=== PATIENT | male | born 1955 | race Caucasian/White ===

== ENCOUNTER 2022-04-28 01:22 | Day surgery (SDC) | payer MEDICARE, SELFPAY ==
[2022-04-15 09:47] VITALS: BMI 46.1
--- NOTE | 2022-04-27 10:57 | PM.HPGS ---
History of Present Illness History of Present Illness Consent: Risks, benefits, and alternatives have been discussed and questions answered. Patient agrees to proceed with procedure. Chief complaint: GERD, neoplasm screening Narrative: Bebeto Rasheed is a 66 year old male who is having issues with acid reflux symptoms. For past 2 years he has had a sensation of fullness in the throat area in feels that it is difficult to swallow. He also feels full in the epigastric area after meal. He never gets true heartburn. He denies dysphagia with any sensation of food getting stuck. He is not losing weight. He is also due for colon cancer screening. Review of Systems Review of Systems: All systems reviewed & are unremarkable except as noted in HPI and below PMFSH Past Medical History Medical History Gout Hyperlipidemia Morbid obesity with BMI of 45.0-49.9, adult Social History Social History Smoking status: Never smoker Alcohol intake: never Substance use: never Substance use type: does not use Living arrangements: with family Spiritual care concerns: No Meds Home Medications and Allergies Home Medications Medication Instructions Recorded Confirmed Type albuterol sulfate 90 mcg/actuation 90 mcg inhalation USEASDIRECTD 04/15/22 04/15/22 History aerosol inhaler allopurinol 300 mg tablet 300 mg PO DAILY 04/15/22 04/15/22 History fluticasone propionate 50 50 mcg intranasal USEASDIRECTD 04/15/22 04/15/22 History mcg/actuation nasal spray,suspension montelukast 10 mg tablet 10 mg PO DAILY 04/15/22 04/15/22 History sertraline 50 mg tablet 50 mg PO DAILY 04/15/22 04/15/22 History simvastatin 20 mg tablet 20 mg PO DAILY 04/15/22 04/15/22 History Allergies Allergy/AdvReac Type Severity Reaction Status Date / Time No Known Allergies Allergy Unverified 04/28/22 07:47 Exam Const: General: alert Orientation/consciousness: patient oriented x3 Resp: Auscultation: clear to auscultation bilaterally Cardio: Rhythm: regular rhythm GI: GI Palp: Yes Soft to palpation and No Tenderness to palpation present (GI) Neuro: General: patient oriented x3 Assessment and Plan Assessment and plan (1) GERD (gastroesophageal reflux disease): Code(s): K21.9 - Gastro-esophageal reflux disease without esophagitis Status: Acute Assessment and Plan: EGD with possible biopsy or dilatation or cautery. (2) Colon cancer screening: Code(s): Z12.11 - Encounter for screening for malignant neoplasm of colon Status: Acute Assessment and Plan: Colonoscopy with possible biopsy or polypectomy or cautery or injection of substances.
[2022-04-28 07:49] VITALS: BP 167/89; PULSE 64; RESP 20; TEMP 36.4; O2SAT 98
--- NOTE | 2022-04-28 07:50 | P.PNAN_ITS ---
Anes - Initial Pre Proc Eval Procedure: Operation Date: 04/28/22 09:00 Proposed Procedures p Esophagogastroduodenoscopy & Screening Colonoscopy - Salvador Damian MD Date/Time: 04/28/22 07:50 Surgeon: Salvador Damian MD Pre Op Diagnosis: GERD, neoplasm screening Patient Data Age: 66 Gender: M Height: 1.83 m Weight: 154.3 kg Allergies Allergy/AdvReac Type Severity Reaction Status Date / Time No Known Allergies Allergy Unverified 04/28/22 07:47 Home Medications Medication Instructions Recorded Confirmed Type albuterol sulfate 90 mcg/actuation 90 mcg inhalation USEASDIRECTD 04/15/22 04/15/22 History aerosol inhaler allopurinol 300 mg tablet 300 mg PO DAILY 04/15/22 04/15/22 History fluticasone propionate 50 50 mcg intranasal USEASDIRECTD 04/15/22 04/15/22 History mcg/actuation nasal spray,suspension montelukast 10 mg tablet 10 mg PO DAILY 04/15/22 04/15/22 History sertraline 50 mg tablet 50 mg PO DAILY 04/15/22 04/15/22 History simvastatin 20 mg tablet 20 mg PO DAILY 04/15/22 04/15/22 History Patient hx anesthesia problems: none Family hx anesthesia problems: none Results Review: All pre-operative results and documents have been reviewed as part of the pre- operative evaluation. [facility] Past Medical History Medical History (Updated 04/28/22 @ 07:51 by Tanmay Ruth MD) Gout Hyperlipidemia Morbid obesity with BMI of 45.0-49.9, adult Social History Social History Smoking status: Never smoker Alcohol intake: never Substance use: never Substance use type: does not use Living arrangements: with family Spiritual care concerns: No Anes - Eval Final PreProcedure Day of Procedure 04/28/22 07:50 Patient weight: morbidly obese Heart: regular rate and rhythm Lungs: clear to auscultation and normal air movement Airway: Mallampati scale class II Neurological: alert and oriented Last oral intake: >/= 8 hours ASA classification: III Emergent: no Anesthetic plan: proceed Anesthesia type and monitoring: general GIVS Results Review: All pre-operative results and documents have been reviewed as part of the pre- operative evaluation. Informed Consent: The patient's anesthetic plan and its attendant risks and benefits were discussed with the patient/family/POA. Questions were solicited and answers provided to the satisfaction of the patient/family/POA.
[2022-04-28] MEDS: LACTATED RINGERS 1,000 ML 150 ML IV CONT (07:59)
--- NOTE | 2022-04-28 09:14 | SUR.OPER ---
EGD ENDED 907, COLONOSCOPY STARTED 913
[2022-04-28] MEDS: SIMETHICONE ORAL SUSPENSION 20 MG/0.3 ML 30 ML BOTTLE 0.6 ML IRRIGATION (09:20)
[2022-04-28 09:27] VITALS: BP 124/70; PULSE 60; RESP 22; O2SAT 100
[2022-04-28 09:37] VITALS: BP 143/79; PULSE 63; RESP 21; O2SAT 100
[2022-04-28 09:47] VITALS: BP 131/80; PULSE 62; RESP 19; O2SAT 100
== END 2022-04-28 10:00 | disposition home or self-care (01) ==
PROVIDERS: PCP Internal Medicine; Visit Provider Internal Medicine Gastroenterology
PROC: 0DJ08ZZ Inspection of Upper Intestinal Tract, Via Natural or Artificial Opening Endoscopic (ICD-10-PCS; CPT 43235; principal; 2022-04-28 09:00)
DX: Z12.11 Encounter for screening for malignant neoplasm of colon (principal); K57.30 Diverticulosis of large intestine without perforation or abscess without bleeding; Z79.51 Long term (current) use of inhaled steroids; M10.9 Gout, unspecified; E66.01 Morbid (severe) obesity due to excess calories; Z68.42 Body mass index [BMI] 45.0-49.9, adult
CPT/HCPCS: 43239; G0121; 87081; J2704; J7120

== ENCOUNTER 2022-07-03 12:27 | Outpatient (CLI) | payer MEDICARE, SELFPAY ==
--- NOTE | 2022-07-03 | ECHO_ITS ---
Patient Info Name: Bebeto Rasheed Age: 67 years : 1955 Gender: Male Ht: 72 in Wt: 330 lbs BSA: 2.83 m2 HR: 78 bpm BP: 186 / 85 mmHg Technical Quality: Fair Exam Date: 07/03/2022 1:25 PM Exam Location: [facility] Patient Status: Outpatient Admit Date: 07/03/2022 Staff Ordering Physician: RosalinoAman MD Asphalt Distributor Operator: Kandis Monroe RDCS Attending Provider: HernanAman MD Exam Type: CA echo doppler color flow Study Info Indications - dyspnea Complete two-dimensional, color flow and Doppler transthoracic echocardiogram is performed. Summary 1. Complete two-dimensional, color flow and Doppler transthoracic echocardiogram is performed. 2. Left ventricular chamber dimension is moderately enlarged. 3. Left ventricular systolic function is normal, estimated at 65-70%. 4. The left ventricular diastolic function is grade I diastolic dysfunction. 5. E/e' 9 is minimally elevated. 6. Left atrial chamber dimension is mildly enlarged. 7. No pulmonary hypertension, estimated pulmonary arterial systolic pressure is 24 mmHg. Left Ventricle E/e' 9 is minimally elevated. Left ventricular chamber dimension is moderately enlarged. Left ventricular systolic function is normal, estimated at 65-70%. The left ventricular diastolic function is grade I diastolic dysfunction. Right Ventricle Right ventricular chamber dimension is normal. Right ventricular systolic function is normal. Left Atria Left atrial chamber dimension is mildly enlarged. Right Atria Right atrial chamber dimension is normal. Aortic Valve The aortic valve is not well visualized. Cannot determine number of aortic valve leaflets. There is no aortic valve stenosis. There is no aortic valve regurgitation. Pulmonic Valve There is no pulmonic regurgitation. Mitral Valve There is no mitral valve stenosis. There is no mitral valve regurgitation. Tricuspid Valve There is no tricuspid valve regurgitation. No pulmonary hypertension, estimated pulmonary arterial systolic pressure is 24 mmHg. Pericardium/Pleural There is no pericardial effusion. Inferior Vena Cava Normal inferior vena cava with >50% collapse upon inspiration consistent with normal right atrial pressure, 5 mmHg. Aorta The aortic root size at the sinus of Valsalva is normal. Left Ventricular Outflow Tract Name Value Normal LVOT 2D LVOT Diameter 2.1 cm LVOT Doppler LVOT Peak Gradient 4 mmHg LVOT Mean Gradient 3 mmHg LVOT VTI 21 cm LVOT VTI/AV VTI Ratio 0.8 LVOT Stroke Volume 77 ml LVOT CO 17.2 l/min LVOT CI 6.1 l/min/m2 Pulmonic Valve Name Value Normal PV Doppler PV Peak Gradi
== END 2022-07-03 12:28 | disposition home or self-care (01) ==
LOC: ANHCARD 12:28
PROVIDERS: PCP Internal Medicine; Visit Provider Internal Medicine
DX: R06.00 Dyspnea, unspecified (principal)
CPT/HCPCS: 93306

== ENCOUNTER 2022-07-21 09:42 | Outpatient (CLI) | payer MEDICARE, SELFPAY ==
--- NOTE | ~2022-07-21 | XR_ITS ---
MODIFIED ESOPHAGRAM HISTORY: Dysphagia. TECHNIQUE: Modified barium esophagram was performed on 07/21/2022. I administered fluoroscopy and per formed the exam with speech pathologist. Patient was seated for lateral fluoroscopic imaging for ing estion of thin liquids, pudding, solids and quantified amounts, followed by thin liquids in uncontrol led amounts. This was recorded on tape. No fluoroscopic image was recorded. The DAP for this procedur e was 2.126 Gycm2. The amount of fluoroscopy time used during this procedure was 1.9 minutes. FINDINGS: Oral stage: Adequate function. Pharyngeal stage: Laryngeal penetration without aspiration with thin uncontrolled thin liquids. Cervical/esophageal stage: Adequate function. IMPRESSION: Laryngeal penetration without aspiration with uncontrolled thin liquids. Please correlat e with speech pathologist findings and specific feeding recommendations. Reviewed, dictated and finalized at location A. SER IMPRESSION: Laryngeal penetration without aspiration with uncontrolled thin liq uids. Please correlate with speech pathologist findings and specific feeding r ecommendations.
--- NOTE | 2022-07-21 13:06 | REHSTMBS ---
Assessment and note entered by Megan Jang, PRODUCTION SUPPORT ENGINEER Modified Barium Swallow Evaluation Diagnosis Dysphagia Subjective Information Patient reports that since having COVID in 2020, he has been having sinus problems and he is concerned that sinus drainage may be contributing to a feeling that there is always something in his throat. He then reported a serious choking episode six months ago on solid food that scared him. He states since that time, he has begun to have more episodes of choking on solid foods and more of a feeling that his throat is tight . Feeding Type Recommended Oral Food Consistency Regular, Level 7 Liquid Consistency Thin (0) Treatment Recommendations Bolus Control Exercise,Effortful Swallow,Laryngeal Elevation Exerc,Jeri Maneuver,Tongue Base Exercise ST Clinical Summary MODIFIED BARIUM SWALLOW STUDY This patient reports a history of of choking episodes and difficulty swallowing for the past six months. He reports a constant feeling of tightness in his throat. The patient was presented with graduated amounts of thin liquid contrast medium from spoon to directly per cup and also per straw. Patient also was presented with graduated amounts of pudding mixed with semi-solid contrast medium, fruit and cracker both coated with the pudding mixture. Patient elicited swallows that were generally within normal limits except for minimal penetration per thin liquid from straw, and then trace penetration on thin liquid directly per cup. Patient reported throughout the evaluation that he felt something in his throat the whole time although the pharynx was generally clear. There was only trace vallecular residue noted after each swallow. Results will suggest patient's swallowing skills are grossly within normal limits however inconsistent trace to minimal penetration was noted given uncontrolled thin liquid. Very mnimal vallecular residue was noted as well. Patient was instructed in the use of safe
== END 2022-07-21 09:43 | disposition home or self-care (01) ==
PROVIDERS: PCP Internal Medicine; Visit Provider Internal Medicine
DX: R13.10 Dysphagia, unspecified (principal)
CPT/HCPCS: 92611

== ENCOUNTER 2022-08-04 08:13 | Outpatient (CLI) | payer MEDICARE, SELFPAY ==
--- NOTE | 2022-08-04 | EST_ITS ---
Patient Info Name: Bebeto Rasheed Age: 67 years : 1955 Gender: Male Ht: 72 in Wt: 330 lbs BSA: 2.83 m2 HR: 57 bpm BP: 146 / 77 mmHg Heart Rhythm: Sinus Rhythm Exam Date: 08/04/2022 10:03 AM Exam Location: [facility] [place] Stress Patient Status: Outpatient Admit Date: 08/04/2022 Staff Ordering Physician: Rosalino, Aman KRISHNA Attending Provider: Rosalino, Aman KRISHNA Exercise Technologist: Becky Garcia CT Exercise Physician: Nohemy Sandoval MD Exam Type: CA stress vince w NM Study Info Indications R06.09 - Other forms of dyspnea A regadenoson stress test was performed. Summary 1. No abnormal ST/T wave changes diagnostic of ischemia with Lexiscan. 2. Please correlate with nuclear medicine images, reported separately. Protocol: Lexiscan Stress ECG Details Stage: REST Duration (min): 1 min : 5 sec HR (bpm): 60 SBP (mmHg): 146 DBP (mmHg): 77 Stage: REST Duration (min): 13 min : 4 sec HR (bpm): 60 SBP (mmHg): 146 DBP (mmHg): 77 Stage: STAGE 1 Duration (min): 0 min : 59 sec HR (bpm): 79 SBP (mmHg): 155 DBP (mmHg): 51 Stage: RECOVERY Duration (min): 1 min : 0 sec HR (bpm): 76 SBP (mmHg): 155 DBP (mmHg): 51 Stage: RECOVERY Duration (min): 2 min : 0 sec HR (bpm): 75 SBP (mmHg): 155 DBP (mmHg): 51 Stage: RECOVERY Duration (min): 2 min : 21 sec HR (bpm): 72 SBP (mmHg): 122 DBP (mmHg): 63 Rest HR: 60 bpm Peak HR: 83 bpm Rest Sys BP: 146 mmHg Peak Sys BP: 155 mmHg Max Pred HR: 152 bpm % Max Pred HR: 55 % Target HR: 129 bpm Max RPP: 12,865 bpm*mmHg Total Time: 1 min : 0 sec Rest Mayberry BP: 77 mmHg Peak Mayberry BP: 51 mmHg Total Dose: 0.4 mg Resting ECG Sinus rhythm. Stress ECG Sinus rhythm. No abnormal ST/T wave changes diagnostic of ischemia with Lexiscan. Arrhythmias None. Report Signatures
--- NOTE | ~2022-08-04 | NM_ITS ---
EXAMINATION: NM vince stress w perfusion DATE: 08/04/2022 11:16 INDICATION: Dyspnea TECHNIQUE: Rest images were obtained following intravenous administration of 11.2 mCi Tc99m tetrofosm in (Myoview). The patient was infused intravenously with Lexiscan (Regadenoson). Then, 34.3 mCi Tc99m tetrofosmin (Myoview) was administered intravenously, and stress images were obtained in both supine and prone positions. Data was reconstructed into short axis and horizontal and vertical long axis SP ECT images. Gated SPECT images were also obtained. COMPARISON: None. FINDINGS: There is no definite reversible or fixed perfusion abnormality to suggest ischemia or infar ction. There is normal left ventricular chamber size, wall motion and ejection fraction. Left ventr icular ejection fraction measures >70%. IMPRESSION: 1. Normal myocardial perfusion at rest and during stress. 2. Left ventricular ejection fraction measuring >70%. Reviewed, dictated and finalized at location A. CIATE STORE MANAGER
--- NOTE | 2022-08-04 14:05 | P.PCNPFT_ITS ---
PFT Procedure Performed PFT Procedure Performed Spirometry with Pre/Post Bronchodilator Plethysmography (Lung Vol) Diffusing Cap (DLCO) Flow Vol Loop Spirometry w/o Bronchodil PFT Interpretation Lung volumes were measured with the body plethysmography method. Lung volumes are unremarkable. Spirometry showed diminished expiratory flow rates and a normal FEV1 to FVC ratio of 85 %. No post bronchodilator study was carried out. Lung diffusion capacity is within the normal range at 78% predicted. The flow- volume loop is unremarkable. The mildly diminished expiratory flow rates in the face of normal FEV1 to FVC ratio and normal total lung capacity is indicative of a nonspecific pattern. Impression: Nonspecific pattern. Lung diffusion capacity within the normal range.
== END 2022-08-04 08:14 | disposition home or self-care (01) ==
LOC: ANHPFT 08:15
PROVIDERS: PCP Internal Medicine; Visit Provider Internal Medicine
DX: R06.00 Dyspnea, unspecified (principal)
CPT/HCPCS: 78452; 93017; 94375; 94726; 94729; A9502; J2785

== ENCOUNTER 2022-09-03 10:51 | Emergency (ER) | payer MEDICARE, SELFPAY ==
[2022-09-03 11:03] VITALS: BP 142/79; PULSE 63; RESP 20; TEMP 36.4; O2SAT 100
--- NOTE | 2022-09-03 11:13 | ED.DIZZY ---
HPI - Dizziness General Chief Complaint: Dizziness Stated Complaint: dizziness Time Seen by Provider: 09/03/22 11:16 Source: patient, RN notes reviewed and old records reviewed Mode of arrival: ambulatory Limitations: no limitations History of Present Illness HPI Narrative: 67 year old male presents to [facility] with 3 day history intermittent dizziness. Patient reports that he has had sinusitis and left ear drainage for months and was treated and finally symptoms have improved/resolved. He states that in July he also had episodes of feeling short of breath and his doctor put him through a stress test and pulmonary function test and everything checked out ok.Patient denies any chest pain, shortness of breath, cough or any headaches. Face is symmetrical denies any tingling or numbness in face, tongue is midline. MD elicited complaint: dizziness Related Data Home Medications Medication Instructions Recorded Confirmed albuterol sulfate 90 mcg/actuation 90 mcg inhalation USEASDIRECTD 04/15/22 09/03/22 aerosol inhaler allopurinol 300 mg tablet 300 mg PO DAILY 04/15/22 09/03/22 fluticasone propionate 50 50 mcg intranasal USEASDIRECTD 04/15/22 09/03/22 mcg/actuation nasal spray,suspension montelukast 10 mg tablet 10 mg PO DAILY 04/15/22 09/03/22 sertraline 50 mg tablet 50 mg PO DAILY 04/15/22 09/03/22 simvastatin 20 mg tablet 20 mg PO DAILY 04/15/22 09/03/22 Allergies Allergy/AdvReac Type Severity Reaction Status Date / Time No Known Allergies Allergy Verified 09/03/22 10:57 Review of Systems Review of Systems: CONSTITUTIONAL: Denies fever, chills, or sweats. EYES: Denies visual changes, redness, or discharge. ENT: Denies rhinorrhea, congestion, sore throat, or otalgia. CARDIOVASCULAR: Denies chest pain, palpitations, or edema. RESPIRATORY: Denies cough or dyspnea. GASTROINTESTINAL: Denies abdominal pain, nausea, vomiting, or diarrhea. GENITOURINARY: Denies dysuria or hematuria. SKIN: Denies rash or itching. MUSCULOSKELETAL: Denies back pain, joint pain, or myalgia. NEUROLOGIC: Denies headache, numbness, or weakness.reports intermittent dizziness PSYCHIATRIC: Denies anxiety or depression. All systems reviewed & are unremarkable except as noted in HPI and below PMFSH Past Medical History Medical History Gout Hyperlipidemia Morbid obesity with BMI of 45.0-49.9, adult Social History Social History Smoking status: Never smoker Alcohol intake: never Substance use: never Substance use type: does not use Spiritual care concerns: No Comments At time of signature, agree with nursing past medical, surgical, social and family history. There is no relevant family history pertinent to the presenting complaint Exam Narrative: GENERAL: Well-appearing, well-nourished, and in no acute distress. HEAD: Normocephalic, atraumatic. EYES: PERRLA and EOMI. ENT: Nares clear, no rhinorrhea or epistaxis. Mucous membranes moist.Right TM normal with good light reflex, no drainage from ear canals.Left TM dull, no throat redness or swelling tonsils absent. NECK: Supple.no lymphadenopathy CHEST: Clear to auscultation. No respiratory distress. Sao2 100% on room air HEART: Regular rate and rhythm. No murmur heard. Normal peripheral pulses. ABDOMEN: Soft, nontender, nondistended, normal active bowel sounds. EXTREMITIES: Normal range of motion. No edema. SKIN: Warm, dry, no rash. NEURO: No focal deficits. Alert and oriented x3.cranial nerves intact with no deficit Course Course Emergency Course: Patient is aware of diagnosis, understands and agrees to treatment plan.? Anticipatory guidance given.? Patient agrees to follow-up as directed and is aware of reasons to seek care at the emergency department. Portions of this record may have been created with voice recognition software Level of Care: [facility] Visit Vital Si
== END 2022-09-03 11:43 | disposition home or self-care (01) ==
PROVIDERS: Emergency Provider Registered Nurse; PCP Internal Medicine
DX: R42 Dizziness and giddiness (principal); M10.9 Gout, unspecified; E78.5 Hyperlipidemia, unspecified; E66.01 Morbid (severe) obesity due to excess calories; Z68.41 Body mass index [BMI] 40.0-44.9, adult
CPT/HCPCS: 99213; G0463

== ENCOUNTER 2022-09-13 11:00 | Outpatient (RCR) | payer MEDICARE, SELFPAY ==
--- NOTE | 2022-08-16 13:47 | STOPEVAL1 ---
Assessment and note entered by Megan Jang, FISHING CAPTAIN Evaluation Information Assessment Status Evaluation Diagnosis Dysphagia Onset Approximately 1 1/2 years ago Subjective Information The patient reports that it feels like there is a restriction where the Shawn's apple is, I guess. Last year and a half. Reports that he had COVID-19, and felt maybe lungs were full of dust, maybe from coughing so hard, it seemed like I strained something in there. Patient reports that during meals, he has had to slow down and has been incorporating head flexion. He states at the end of the meal, he still feels that he has a full throat and coughs about two or three times. He states he does not feel that he feels that something is there that he has to cough, such as sinus drainage or food/liquid that has remained after swallowing. He states this may occur for about thirty minutes but does not have this sensation after meals. Reported Pain Level Pain Score 0: Self Report Assessment ST Clinical Summary DYSPHAGIA EVALUATION This patient was seen for a Dysphagia Evaluation/ Treatment following a Modified Barium Swallow study on Tuesday, July 21 which revealed minimal penetration on thin liquid per straw and only trace penetration on thin liquid per cup. Patient was instructed in the use of head flexion; he voiced good understanding. Continued Speech Therapy for swallowing exercises and possible use of VitalStim was recommended. Today the patient reports improved swallowing skills overall however he reports a continued feeling of fullness in the throat along with coughing after eating. He was instructed in the use of swallowing strengthening exercises including laryngeal elevation exercises to improve epiglottal inversion to prevent penetration, laryngeal adduction exercises to improve the strength of the vocal cords for airway protection, and base of tongue retraction exercises in order to improve the movement of material through the pharynx to prevent pharyngeal residue. Patient voiced good understanding of exercises. VitalStim will be introduced
--- NOTE | 2022-08-25 11:30 | PCSTNOTE ---
Patient did not show up for scheduled appointment this date.
--- NOTE | 2022-08-31 09:44 | PCSTNOTE ---
Therapist contacted patient since he did not come to last week's scheduled appointments. Patient stated he could not come today but will return to structured therapy session on this at 11:00.
--- NOTE | 2022-09-13 12:26 | STOPDC ---
Assessment and note entered by MANUEL Feng Evaluation Information Assessment Status Discharge Reported Pain Level Pain Score 0: Self Report Pain Score 0: Self Report Assessment ST Clinical Summary PROGRESS NOTE AND DISCHARGE SUMMARY This patient was seen for a re-assessment and discharge visit this date. The patient was seen for a Modified Barium Swallow study 07/21/22 due to complaints of coughing/choking while eating and drinking, and also complaint of a feeling that there is always something in his throat (i.e. maybe sinus drainage?) Swallowing therapy with VitalStim was suggested at that time. Patient returned for outpatient Speech Therapy in July and he has received four treatments of VitalStim along with instruction for swallowing strengthening exercises and safe swallowing guidelines. Patient reports he completes several exercises daily. At the end of today's session, following the fourth VitalStim treatment, patient determined that he feels the swallowing exercises have been helpful but he does not feel that the VitalStim facilitated significant improvement. Patient admitted to the coughing that triggered the Modified Barium Swallow (MBS) but is somewhat in denial that the penetration noted on the MBS study was triggering the coughing but that his sinus and allergy symptoms triggered the coughing. Patient was seen for five sessions, with four treatments of VitalStim. He now reports NO coughing while eating and drinking however he indicated that he feels that the use of Flonase and other sinus medications had improved the feeling that he has phlegm in his throat and that is what reduced his coughing. He did state on more than one occasion, that he appreciated the swallowing strengthening exercises because he has been doing them somewhat consistently and he feels they have assisted with improved swallowing but expressed he did not feel the VitalStim was significantly helpful. Patient is being discharged with goals achieved; he reported he will follow-up with his physician concerning the feeling of sinus drainage in the throat at all times.
== END 2022-09-14 13:46 | disposition home or self-care (01) ==
LOC: ANHST 11:00
PROVIDERS: PCP Internal Medicine; Visit Provider Internal Medicine
DX: R13.10 Dysphagia, unspecified (principal)
CPT/HCPCS: 92526; 92610; 99199

== ENCOUNTER 2024-03-26 14:09 | Outpatient (CLI) | payer MEDICARE, SELFPAY ==
--- NOTE | ~2024-03-26 | XR_ITS ---
XR humerus LT Ordering provider: Aman Jerry, History: . Pain in Lt arm . Comparison: None. FINDINGS: BONES: No acute fracture or dislocation. JOINT SPACES: Normal. SOFT TISSUES: Normal. IMPRESSION: No acute osseous abnormality left humerus. Reviewed, dictated and finalized at location A.
== END 2024-03-26 14:10 ==
PROVIDERS: PCP Internal Medicine; Visit Provider Internal Medicine
DX: M79.602 Pain in left arm (principal)
CPT/HCPCS: 73060

== ENCOUNTER 2024-03-26 14:33 | Outpatient (CLI) | payer MEDICARE, SELFPAY ==
--- NOTE | ~2024-03-26 | US_ITS ---
EXAMINATION: US soft tissue UE LT DATE: 03/26/2024 14:46 INDICATION: Left arm pain with palpable abnormality at the site of a injection 4 months prior TECHNIQUE: Multiple grayscale and Doppler ultrasound images of the region of concern at the left uppe r arm were obtained. COMPARISON: None FINDINGS/IMPRESSION: Normal appearance to the subcutaneous soft tissues at the region of concern. No abnormal masses or fl uid collections identified. Reviewed, dictated and finalized at location A.
== END 2024-03-26 14:34 ==
LOC: MICIMG 14:35
PROVIDERS: PCP Internal Medicine; Visit Provider Internal Medicine
DX: M79.602 Pain in left arm (principal)
CPT/HCPCS: 76882

== ENCOUNTER 2024-08-05 07:39 | Inpatient (IN) | payer MEDICARE, SELFPAY ==
[2024-08-05] VITALS (10 sets, daily range): BP systolic 106–187; BP diastolic 72–100; PULSE 62–73; RESP 18–20; TEMP 36.1–36.3; O2SAT 93–97; BMI 45.9
--- NOTE | ~2024-08-05 | CT_ITS ---
EXAMINATION: CT cervical spine wo con DATE: 08/05/2024 10:55 INDICATION: Fall. TECHNIQUE: Computed tomography (CT) of the cervical spine was performed without intravenous contrast. Automated exposure control and iterative reconstruction technique were employed. The dose-length pro duct was 649.99 mGy-cm. COMPARISON: None FINDINGS: There is mild kyphosis of cervical spine. There is 5 degrees dextrocurvature of cervical sp ine. Vertebral body heights are normal. There is mildly decreased disc height at C4-C5 and moderately decreased disc height at C5-C6. The following disc levels are specifically discussed: C2-C3: There is no uncovertebral joint osteoarthritis. There is mild right and severe left facet join t osteoarthritis. There is mild left neural foraminal stenosis. There is no central canal stenosis. C3-C4: There is mild bilateral uncovertebral joint osteoarthritis. There is moderate left facet joint osteoarthritis. There is no neural foraminal stenosis. There is no central canal stenosis. C4-C5: There is mild bilateral uncovertebral joint osteoarthritis. There is mild right and moderate l eft facet joint osteoarthritis. There is mild bilateral neural foraminal stenosis. There is mild cent ral canal stenosis. C5-C6: There is severe bilateral uncovertebral joint osteoarthritis. There is mild bilateral facet rakel int osteoarthritis. There is mild bilateral neural foraminal stenosis. There is mild central canal st enosis. C6-C7: There is mild bilateral uncovertebral joint osteoarthritis. There is moderate and mild left fa cet joint osteoarthritis. There is no neural foraminal stenosis. There is no central canal stenosis. C7-T1: There is no uncovertebral joint osteoarthritis. There is severe right and mild left facet join t osteoarthritis. There is mild right neural foraminal stenosis. There is no central canal stenosis. IMPRESSION: 1. No fracture. 2. Moderate cervical spondylosis. Reviewed, dictated and finalized at location A. TH EVALUATOR
--- NOTE | ~2024-08-05 | CT_ITS ---
EXAMINATION: CT brain wo con DATE: 08/05/2024 10:55 INDICATION: Fall. TECHNIQUE: Computed tomography (CT) of the head was performed without intravenous contrast. The mA wa s adjusted according to patient size. Iterative reconstruction technique was employed. The dose-lengt h product was 681.00 mGy-cm. COMPARISON: None FINDINGS: There is no intracranial hemorrhage, acute infarction, or abnormal intracranial mass lesion . There are scattered areas of low attenuation in the cerebral white matter, which is within normal l imits for the patient's age. The ventricles are normal in size. The orbits are normal. There is mild mucosal thickening in the paranasal sinuses. The mastoid air cells are normal. There is left cheek so ft tissue swelling. IMPRESSION: 1. Normal aging brain. Reviewed, dictated and finalized at location A. E CREW SUPERVISOR IMPRESSION: 1. Normal aging brain.
--- NOTE | ~2024-08-05 | CT_ITS ---
EXAMINATION: CT facial bones w con DATE: 08/05/2024 10:55 INDICATION: Left periorbital cellulitis. TECHNIQUE: Computed tomography (CT) of the facial bones and maxillofacial region was performed with 7 5 mL Omnipaque 350 intravenous contrast. Automated exposure control and iterative reconstruction tech [place] were employed. The dose-length product was 354.17 mGy-cm. COMPARISON: CT 08/18/2014 FINDINGS: The orbits are normal. There is left periorbital soft tissue swelling. There are no patholo gically enlarged lymph nodes. There is mild mucosal thickening in the paranasal sinuses. The mastoid air cells are normal. There is moderate cervical spondylosis. IMPRESSION: 1. Left periorbital soft tissue swelling, consistent with synovitis. No orbital involvement. Reviewed, dictated and finalized at location A. ITALITY COORDINATOR
--- NOTE | ~2024-08-05 | XR_ITS ---
EXAMINATION: XR ribs LT 2V w CXR 2V DATE: 08/05/2024 09:39 INDICATION: Fall. TECHNIQUE: Frontal and lateral views of the chest and 2 views on 3 radiographs of the left ribs were obtained. COMPARISON: Chest 2 views 06/13/2014 FINDINGS: CHEST TWO VIEWS: There is mild elevation of right hemidiaphragm. No pneumonia, pleural effusion, or p neumothorax. The heart size is normal. Calcified left hilar lymph nodes are consistent with old granu lomatous disease. LEFT RIBS: There is no rib fracture. IMPRESSION: 1. No rib fracture. Reviewed, dictated and finalized at location A. EMAN IMPRESSION: 1. No rib fracture.
--- NOTE | 2024-08-05 08:52 | ED.FALL ---
HPI - Fall General Chief Complaint: Fall Stated Complaint: fell/left eye injury Time Seen by Provider: 08/05/24 08:52 Source: patient and family History of Present Illness HPI Narrative: 5 DAYS AGO PATIENT WAS WALKING GOING TO HIS SHOP, STUMBLED AND FELL LANDED ON THE LEFT SIDE OF HIS FACE AND HEAD, LOSS OF CONSCIOUSNESS, COMPLAINING OF HEADACHE, FACIAL PAIN, WORKUP WITH LEFT EYE MATTED WITH DISCHARGE, INCREASED PAIN AROUND THE LEFT EYE, NECK PAIN, LEFT CHEST SORENESS WORSE WITH DEEP BREATH BECAUSE HE HAD HIS PHONE IN HIS POCKET ON THE LEFT SIDE DURING THE FALL, ALSO COMPLAINING THAT TEETH PAIN ON THE LEFT UPPER SIDE. PATIENT'S IS TELLING ME THAT PATIENT IS WALKING OKAY, DENYING ANY NUMBNESS OR TINGLING, DIZZINESS OR LIGHTHEADEDNESS, CHEST PAIN OR SHORTNESS OF BREATH. PATIENT REPORTS THE HEADACHE IS NOT STEADY, COMES AND GOES, GET WORSE IF HE LAY DOWN FLAT FOR LONG TIME. HISTORY OF HYPERTENSION HYPERLIPIDEMIA, ASTHMA, GOUT. Related Data Home Medications Medication Instructions Recorded Confirmed allopurinol 300 mg tablet 300 mg PO HS 04/15/22 08/05/24 montelukast 10 mg tablet 10 mg PO HS 04/15/22 08/05/24 simvastatin 20 mg tablet 20 mg PO HS 04/15/22 08/05/24 aspirin 81 mg tablet,delayed 81 mg PO HS 03/23/24 08/05/24 release (Adult Aspirin Regimen) rsjczaxteqry-aip-setty acid-vit 1 tablet PO DAILY 03/23/24 08/05/24 K-lycop 400 mcg-20 mcg-370 mcg tablet omega-3 fatty acids-fish oil 300 1 cap PO DAILY 03/23/24 08/05/24 mg-500 mg capsule (Fish Oil) losartan 100 1 tablet PO DAILY 08/05/24 08/05/24 mg-hydrochlorothiazide 25 mg tablet Allergies Allergy/AdvReac Type Severity Reaction Status Date / Time No Known Allergies Allergy Verified 08/05/24 14:36 Review of Systems Review of Systems: All systems reviewed & are unremarkable except as noted in HPI and below PMFSH Past Medical History Medical History GERD (gastroesophageal reflux disease) Gout HTN (hypertension) Hyperlipidemia Morbid obesity with BMI of 45.0-49.9, adult Surgical History Surgical History H/O knee surgery H/O toe surgery bone spur removal History of local excision of skin lesion fatty tumor from forehead Family History Family History Father Diabetes mellitus Mother Cerebrovascular accident Social History Social History Smoking status: Never smoker Alcohol intake: never Substance use: never Substance use type: does not use Do You Feel Safe in your Home?: Yes Lack of Transportation: No Lack of Food: Never True Current Housing: I Have Housing Concerned About Future Housing: No Difficulty Paying Gas/Electric Bills: No Difficulty Paying for Meds: No Currently Unemployed: No Education: Trade/Vocational Certificate Difficulty w/ Childcare or Family Care: No Living arrangements: with family Spiritual care concerns: No Exam Narrative: GENERAL APPEARANCE: WELL-DEVELOPED, WELL-NOURISHED SKIN: NORMAL COLOR LEFT EYEBROW HEALING 2 CM LACERATION, SURROUNDED BY ERYTHEMA AND DIFFUSE TENDERNESS HEAD: NORMOCEPHALIC, OCCIPITAL BRUISES, LEFT FOREHEAD CONTUSION EYES: CLEAR CONJUNCTIVA, SLIGHT LEFT SUBCONJUNCTIVAL HEMORRHAGE, LEFT EYE SURROUNDED BY ERYTHEMA AND DIFFUSE TENDERNESS AND WARM, SWOLLEN EYELIDS ENT: OROPHARYNX NORMAL, EARS NORMAL, NOSE NORMAL NECK: SUPPLE, NONTENDER CHEST AND RESPIRATORY: AIRWAY PATENT, NO RESPIRATORY DISTRESS, NO ACCESSORY MUSCLE USE HEART: REGULAR RATE/RHYTHM ABDOMEN: SOFT, NONTENDER, NO ORGANOMEGALY, QUIET BOWEL SOUNDS VASCULAR: NORMAL PERIPHERAL PULSES, NORMAL CAPILLARY REFILL. MUSCULOSKELETAL: NORMAL RANGE OF MOTION, NONTENDER BACK NEUROLOGIC: ALERT AND ORIENTED ?3, PHOTOVOLTAIC POWER SYSTEMS ENGINEER IS NORMAL TESTED, NO GROSS MOTOR DEFICIT Course Vital Signs Vital signs: Vital Signs Temperature 36.1 C L 08/05/24 07:42 Pulse Rate 70 08/05/24 07:42 Respiratory Rate 18 08/05/24 07:42 Blood Pressure 187/100 H 08/05/24 07:42 Pulse Oximetry 97 08/05/24 07:42 Oxygen Delivery Room Air 08/05/24 07:42 Temperature 36.7 C 08/06/24 21:42 Pulse Rate 65 08/06/24 21:42 Respiratory Rate 16 08/06/24 21:42 Blood Pressure 139/75 08/06/24 21:42 Pulse Oximetry 97 08/06/24 21:42 Oxygen Delivery Room Air 08/06/24 13:50 MDM - Fall MDM Narrative Medical decision making narrative: PATIENT CAME WITH FALL, LOSS OF CONSCIOUSNESS, HEAD INJURY, FACIAL INJURY, 5 DAYS AGO VITAL SIGNS SHOWING BLOOD PRESSURE 187/100 PHYSICAL EXAMINATION SHOWING INFECTED FACIAL LACERATION ON THE LEFT SIDE SURROUNDED BY ERYTHEMA AND TENDERNESS, OCCIPITAL HEMATOMA/BRUISES DIFFERENTIAL DIAGNOSIS INCLUDE ELECTROLYTE IMBALANCE, DEHYDRATION, INTRACRANIAL BLEED, CERVICAL FRACTURE, FACIAL BONE FRACTURE, INFECTED LACERATION WITH PERIORBITAL CELLULITIS BLOOD WORKUP TODAY INCLUDES CBC, CMP, BLOOD CULTURE, C-REACTIVE PROTEIN, LACTIC ACID , PT PTT SHOWED NORMAL WBC, NORMAL COAGS, NORMAL CMP URINALYSIS SHOWED EVIDENCE OF INFECTION CT HEAD, CT CERVICAL SPINE WITHOUT CONTRAST SHOWED NO ACUTE ABNORMALITIES, CT FACE WITH IV CONTRAST SHOWED FINDING CONSISTENT WITH PERIORBITAL CELLULITIS LEFT RIB/ CHEST X-RAY SHOWED NO RIB FRACTURE, NO PNEUMONIA. ADMIT TO HOSPITALIST Differential Diagnosis Differential diagnosis: Likely other ( ABOVE) Lab Data 08/06/24 05:34 08/06/24 05:34 Labs: Lab Results 08/05/24 08/05/24 08/06/24 Range/Units 09:40 10:26 05:34 WBC 9.1 9.8 (4.5-10.0) K/mm3 RBC 4.22 L 3.92 L (4.6-6.20) M/mm3 Hgb 13.2 L 12.0 L (14.0-18.0) g/dL Hct 38.8 L 36.6 L (42.0-52.0) % MCV 91.9 93.4 (80-100) fl MCH 31.3 30.6 (26-34) pg MCHC 34.0 32.8 (32-36) g/dl RDW 13.9 14.0 (11.5-14.5) % Plt Count 211 208 (150-375) k/mm3 MPV 11.3 H 10.7 H (7.4-10.4) fl Immature Gran % (Auto) 0.2 0.3 (0-0.5) % Neut % (Auto) 66.7 61.0 (45.5-73.1) % Lymph % (Auto) 24.1 29.1 (18.3-44.2) % [place] % (Auto) 5.8 5.8 (2.6-8.5) % Eos % (Auto) 2.7 3.3 (0-4.4) % Baso % (Auto) 0.5 0.5 (0.2-1.2) % Lymph # (Auto) 2.20 2.86 (0.9-3.2) K/mm3 [place] # (Auto) 0.5 0.6 (0.1-0.6) K/mm3 Eos # (Auto) 0.3 0.3 (0-0.3) K/mm3 Baso # (Auto) 0.1 0.1 (0.0-0.1) K/mm3 Abs Immat Gran (auto) 0.02 0.03 (0.00-0.031) K/mm3 Absolute Neuts (auto) 6.1 6.0 (1.3-6.7) K/mm3 Absolute Nucleated RBC 0.000 0.000 (0.0-0.012) K/mm3 Nucleated RBC % 0.0 0.0 (0.0-0.2) % PT 13.0 (11.1-14.7) Seconds INR 0.9 APTT 26.4 (22.3-36.8) Seconds Sodium 139 135 L (137-145) mmol/L Potassium 3.5 3.9 (3.4-5.0) mmol/L Chloride 105 107 (98-107) mmol/L Carbon Dioxide 27 25 (22-30) mmol/L Anion Gap 7 3 L (4-12) mmol/L BUN 28 H 23 H (9-20) mg/dL Creatinine 0.70 0.70 (0.7-1.3) mg/dL Estim Creat Clear Calc 129 129 ml/min Estimated GFR > 60 > 60 (59 - ) Glucose 115 H 97 (65-110) mg/dL Lactic Acid 1.2 (0.7-2.0) mmol/L Calcium 9.3 8.8 (8.4-10.2) mg/dL Total Bilirubin 0.9 (0.2-1.3) mg/dL AST 28 (17-59) U/L ALT 23 (6-50) U/L Alkaline Phosphatase 46 (38-126) U/L C-Reactive Protein < 0.5 (<1.0) mg/dL Total Protein 7.0 (6.3-8.2) g/dL Albumin 4.1 (3.5-5.1) g/dL Urine Color Yellow (Yellow) Urine Appearance Cloudy H (Clear) Urine pH 6.0 (5.0-9.0) Ur Specific [place] 1.026 (1.001-1.035) Urine Protein Negative (Negative) mg/dL Urine Glucose (UA) Negative (Negative) mg/dL Urine Ketones Negative (Negative) mg/dL Ur Blood (Man) Negative (Negative) Urine Nitrate Negative (Negative) Urine Bilirubin Negative (Negative) Urine Urobilinogen 0.2 (<2.0) mg/dL Leukocyte Esterase Rfl Trace H (Negative) RICK/UL Urine RBC 0-2 (0-2) /hpf Urine WBC 11-20 H (0-3) /hpf Ur Squamous Epith Cells Few (Few) /hpf Urine Bacteria Rare /hpf Urine Casts 0-2 Imaging Data Radiologist's impression: Impressions Ribs w/Chest X-Ray 08/05/24 09:49 IMPRESSION: 1. No rib fracture. Head CT 08/05/24 10:57 IMPRESSION: 1. Normal aging brain. Face CT 08/05/24 10:58 IMPRESSION: 1. Left periorbital soft tissue swelling, consistent with synovitis. No orbital involvement. Cervical Spine CT 08/05/24 11:00 IMPRESSION: 1. No fracture. 2. Moderate cervical spondylosis. Critical Care Time Critical Care Time Critical Care Time: Yes Total Critical Care Time: 30 Discharge Plan Discharge Clinical Impression: Periorbital cellulitis of left eye Patient Disposition: Still a Patient Condition: Stable
--- NOTE | 2024-08-05 09:06 | ECG_ITS ---
Test Date: 2024-08-05 09:46:16 Measurements Intervals [place] Rate: 54 P: 60 CA: 206 QRS: -34 QRSD: 106 T: 15 QT: 414 QTc: 395 Interpretive Statements SINUS BRADYCARDIA PATTERN CONSISTENT WITH PULMONARY DISEASE INFERIOR MYOCARDIAL INFARCTION , PROBABLY OLD [40+ ms Q WAVE AND/OR ST/T ABNORMALITY IN II/aVF] No previous ECG available for comparison Electronically Signed On 08-05-2024 15:04:02 CAUSE ANALYST by Yasir Timmons M.D.
[2024-08-05] MEDS: TETANUS,DIPHTHERIA,AC PERTUSSIS ADULT (0.5 ML) BOOSTRIX IM (09:40)
[2024-08-05 09:48] LABS: Basophils Absolute Auto 0.1 K/mm3 (0.0-0.1); Basophils Percent Auto 0.5 % (0.2-1.2); Eosinophils Absolute Auto 0.3 K/mm3 (0-0.3); Eosinophils Percent Auto 2.7 % (0-4.4); Hematocrit 38.8 % (42.0-52.0); Hemoglobin 13.2 g/dL (14.0-18.0); Immature Granulocyte Absolute 0.02 K/mm3 (0.00-0.031); Immature Granulocyte Percent A 0.2 % (0-0.5); Lymphocytes Percent Auto 24.1 % (18.3-44.2); Mean Corpuscular Hemoglobin 31.3 pg (26-34); Mean Corpuscular Volume 91.9 fl (80-100); Mean Platelet Volume 11.3 fl (7.4-10.4); Monocytes Absolute Auto 0.5 K/mm3 (0.1-0.6); Monocytes Percent Auto 5.8 % (2.6-8.5); Neutrophils Absolute Auto 6.1 K/mm3 (1.3-6.7); Neutrophils Percent Auto 66.7 % (45.5-73.1); Platelet Count Result 211 k/mm3 (150-375); Red Blood Count 4.22 M/mm3 (4.6-6.20); Red Cell Distribution Width 13.9 % (11.5-14.5); White Blood Count 9.1 K/mm3 (4.5-10.0)
[2024-08-05 10:01] LABS: Alanine Aminotransferase 23 U/L (6-50); Albumin Level 4.1 g/dL (3.5-5.1); Alkaline Phosphatase 46 U/L (38-126); Anion Gap 7 mmol/L (4-12); Aspartate Amino Transferase 28 U/L (17-59); Bilirubin,Total 0.9 mg/dL (0.2-1.3); Blood Urea Nitrogen 28 mg/dL (9-20); CRP < 0.5 mg/dL (<1.0); Calcium 9.3 mg/dL (8.4-10.2); Carbon Dioxide 27 mmol/L (22-30); Chloride 105 mmol/L (98-107); Estimated CRCL calculation 129 ml/min; Estimated Glomerular Filt Rate > 60; Glucose 115 mg/dL (65-110); Potassium 3.5 mmol/L (3.4-5.0); Sodium 139 mmol/L (137-145)
[2024-08-05 10:07] LABS: INR 0.9
[2024-08-05 10:08] LABS: Partial Thromboplastin Time 26.4 Seconds (22.3-36.8)
[2024-08-05 10:53] LABS: Add Urine Microscopic? YES; Appearance Urine Cloudy (Clear); Bacteria Urine Rare /hpf; Bilirubin Urine Negative (Negative); Blood Urine Negative (Negative); Color Urine Yellow (Yellow); Glucose Urine UA Negative (Negative); Ketones Urine Negative (Negative); Leukocyte Esterase Ur Trace LEU/UL (Negative); Nitrate Urine Negative (Negative); Non Pathogenic Casts 0-2; Protein Urine Negative (Negative); RBC Urine 0-2 /hpf (0-2); Specific Grav Ur 1.026 (1.001-1.035); Squamous Epithelial Cell Urine Few /hpf (Few); Urobilinogen Urine 0.2 mg/dL (<2.0)
[2024-08-05 10:58] LABS: Lactic Acid Reflex 1.2 mmol/L (0.7-2.0)
[2024-08-05] MEDS: PIPERACILLN/TAZ 3.375GM/NS50ML 3.375 GM/50 ML BAG IVPB ×3 (13:15→23:47)
[2024-08-05] MEDS: VANCOMYCIN 1,250 MG/NS 250 ML 1,250 MG/250 ML BAG 166.67 MG IVPB ×2 (13:53→15:30)
--- NOTE | 2024-08-05 14:29 | ADMGEN ---
This patient, Bebeto Rasheed, was admitted to [facility] Surg Room 302-01. Patient/family oriented to hospital policies and general routines including ID bracelet, bed and alarms, visiting hours, pain management, procedures, bathroom and other care routines, personal items, smoking policy, room service/diet, and visiting hours. Information on how to activate the Rapid Response Team has been discussed. Patient/Family are encouraged to report perceived risks to care and to ask questions if they do not understand what they are told or what they should do.
--- NOTE | 2024-08-05 15:57 | P.HP_ITS ---
H&P: HPI History of Present Illness Date/Time: 08/05/24 15:57 Chief Complaint: Fall, Facial Swelling Narrative: 69 y/o M presents here with facial swelling and left rib pain post-fall with PMH of hypertension, hyperlipidemia, asthma, and gout. The patient presents here from home for further evaluation left facial swelling and pain to left ribs post fall. He reports that Tuesday morning (08/01) he sustained a ground level fall while walking to his shop. He reports he stumbled and lost his balance falling onto his left side with a strike to the left side of his face, head, and chest wall. +/- loss of consciousness, patient is unsure. Post fall he reported left facial pain, laceration near left lateral eyebrow, and associated swelling/bruising. Patient did wash out the wound with soap and water multiple times, left laceration open, and tried to avoid touching region. Did not seek initial evaluation due to no initial concerns. Then developed drainage from the left eye and the laceration yesterday afternoon, initially orange/brown. Drainage increased in volume overnight which prompted him to seek care. Now reporting headache, facial pain, left eye matting and discharge, periorbital pain, neck pain, left chest soreness that worsens with inspiration, and left dental pain. He describes the headache as occipital, nonradiating, intermittent, aggravated by lying flat for extended period, and alleviated by moving positions. Patient believes the headache is from laying flat which he does not typically do. Left eye matting and discharge are not accompanied by vision changes. Chest wall pain is/is not accompanied by shortness of breath, palpitations, or midsternal chest pain. Denies dysuria, urinary frequency, hesitancy, or suprapubic/abdominal pain. Initial VS at presentation: 97? F, HR 70, RR 18, 187/100, and 97% on RA. ED workup showed: No leukocytosis, hemoglobin 13.2 (no previous available for comparison), normal coags, no significant electrolyte derangement, creatinine 0.7 and GFR >60, glucose 115, lactic 1.2, CRP negative. UA showed cloudy appearance, trace leuks, 11-20 WBC, few epithelial cells, rare bacteria. Rib/CXR showed no rib fracture. Head CT showed normal aging brain. C-spine CT showed no fracture and moderate cervical spondylosis. Face CT showed left periorbital soft tissue swelling, consistent with synovitis. No orbital involvement. Review of Systems Review of Systems: All systems reviewed & are unremarkable except as noted in HPI and below [facility] Past Medical History Medical History GERD (gastroesophageal reflux disease) Gout HTN (hypertension) Hyperlipidemia Morbid obesity with BMI of 45.0-49.9, adult Surgical History Surgical History H/O knee surgery H/O toe surgery bone spur removal History of local excision of skin lesion fatty tumor from forehead Family History Family History Father Diabetes mellitus Mother Cerebrovascular accident Social History Social History Smoking status: Never smoker Alcohol intake: never Substance use: never Substance use type: does not use Do You Feel Safe in your Home?: Yes Lack of Transportation: No Lack of Food: Never True Current Housing: I Have Housing Concerned About Future Housing: No Difficulty Paying Gas/Electric Bills: No Difficulty Paying for Meds: No Currently Unemployed: No Education: Trade/Vocational Certificate Difficulty w/ Childcare or Family Care: No Living arrangements: with family Spiritual care concerns: No Meds Home Medications and Allergies Home Medications Medication Instructions Recorded Confirmed Type allopurinol 300 mg tablet 300 mg PO HS 04/15/22 08/05/24 History montelukast 10 mg tablet 10 mg PO HS 04/15/22 08/05/24 History simvastatin 20 mg tablet 20 mg PO HS 04/15/22 08/05/24 History aspirin 81 mg tablet,delayed 81 mg PO HS 03/23/24 08/05/24 History release (Adult Aspirin Regimen) mgggsjnzvvmk-ary-haqpu acid-vit 1 tablet PO DAILY 03/23/24 08/05/24 History K-lycop 400 mcg-20 mcg-370 mcg tablet omega-3 fatty acids-fish oil 300 1 cap PO DAILY 03/23/24 08/05/24 History mg-500 mg capsule (Fish Oil) losartan 100 1 tablet PO DAILY 12/08/24 12/08/24 History mg-hydrochlorothiazide 25 mg tablet Allergies Allergy/AdvReac Type Severity Reaction Status Date / Time No Known Allergies Allergy Verified 08/05/24 14:36 Vital Signs Vital Signs - 24 hr 08/05/24 07:42 08/05/24 07:50 08/05/24 07:52 Temperature 97.0 F L Pulse Rate 70 63 Respiratory Rate 18 20 Blood Pressure 187/100 H 182/78 H Pulse Oximetry 97 95 96 Oxygen Delivery Room Air 08/05/24 08:00 08/05/24 08:02 08/05/24 09:40 Temperature Pulse Rate 70 Respiratory Rate 19 Blood Pressure 162/77 H Pulse Oximetry 96 96 96 Oxygen Delivery 08/05/24 09:45 08/05/24 11:38 08/05/24 14:04 Temperature Pulse Rate 62 73 Respiratory Rate 20 20 Blood Pressure 150/72 H 152/74 H Pulse Oximetry 97 97 95 Oxygen Delivery Exam Const: General: comfortable and no acute distress Other: , male, nontoxic appearance HENMT: Face/Nose/Sinus: Normal nares present Mouth: Yes moist mucous membranes Other: See skin exam for abnormalities. Eyes: General: appearance normal, both eyes and all related structures Sclera: sclerae normal Pupils: Equal, round and reactive pupils present EOM: EOMs intact bilaterally Other: Scant cloudy drainage and matting to left eye. Mild edema to left face near eyebrow, lateral left eye, and upper left cheek. Chest: Other: 7x4 cm area of ecchymosis to anterior ch est near nipple line, medial left chest. mild tenderness. Resp: Effort & Inspection: normal respiratory effort Auscultation: clear to auscultation bilaterally Cardio: Rate: regular rate Rhythm: regular rhythm Other: S1-S2 present without murmur, rub, ectopy GI: Other: Abdomen soft, nondistended, nontender. : Other: No suprapubic tenderness Skin: Other: 3 cm repaired lac to lateral left eyebro w with dried orange drainage and underlying ecchymosis to left face. scant ecchymosis to distal periorbital region bilaterally. Neuro: Speech: normal speech Motor exam (neuro): 5/5 motor strength present throughout Sensory Exam: normal sensation Other: A&O x4 Extrem: General: normal to inspection Psych: Mental Status: mental status grossly normal Affect: normal affect Other: Good insight and judgment, very pleasant H&P: Results Labs Labs: Short CBC 08/05/24 Range/Units 09:40 WBC 9.1 (4.5-10.0) K/mm3 Hgb 13.2 L (14.0-18.0) g/dL Hct 38.8 L (42.0-52.0) % Plt Count 211 (150-375) k/mm3 BMP 08/05/24 09:40 Sodium 139 Potassium 3.5 Chloride 105 Carbon Dioxide 27 BUN 28 H Creatinine 0.70 Glucose 115 H Calcium 9.3 Liver Function 08/05/24 Range/Units 09:40 Total Bilirubin 0.9 (0.2-1.3) mg/dL AST 28 (17-59) U/L ALT 23 (6-50) U/L Alkaline Phosphatase 46 (38-126) U/L Albumin 4.1 (3.5-5.1) g/dL Urine 08/05/24 Range/Units 10:26 Urine Color Yellow (Yellow) Urine Appearance Cloudy H (Clear) Urine pH 6.0 (5.0-9.0) Ur Specific [place] 1.026 (1.001-1.035) Urine Protein Negative (Negative) mg/dL Urine Glucose (UA) Negative (Negative) mg/dL Assessment and Plan Assessment and plan (1) Periorbital cellulitis of left eye: Code(s): L03.213 - Periorbital cellulitis Status: Acute Assessment and Plan: - did not meet SIRS criteria. Blood cultures obtained in the ED, follow. - CT face: 1. Left periorbital soft tissue swelling, consistent with synovitis. No orbital involvement. - started on vancomycin IVPB, Zosyn IVPB, and Polytrim topical to left eye - lactic 1.2 and CRP <0.5 - analgesics p.r.n. - visual field checks q6h x 24 hours - ice application p.r.n. (2) Ground-level fall: Code(s): W18.30XA - Fall on same level, unspecified, initial encounter Status: Acute Assessment and Plan: - trauma workup negative for acute fracture/traumatic finding, included head CT, C-spine CT, CXR/rib XR and facial CT. Facial CT significant for synovitis, see above. - fall precautions - PT/OT eval and treat - analgesics p.r.n. (3) HTN (hypertension): Qualifiers: Hypertension type: primary hypertension Qualified Code(s): I10 - Essential (primary) hypertension Code(s): I10 - Essential (primary) hypertension Status: Chronic Assessment and Plan: - chronic, currently 152/74 - continue home medications: losartan-hydrochlorothiazide 100-25 mg daily - monitor Plan Diet: Heart healthy GI Prophylaxis: Not currently indicated DVT Prophylaxis: SCDs Lines: Peripheral Code Status: DNR Quality VTE Prophylaxis VTE prophylaxis: mechanical ordered Hospitalist MIPS Advance Care Plan I have confirmed that the patient's Advanced Care Plan is present, code status is documented, or surrogate decision maker is listed in patient medical record.: Yes Medication Reconciliation I have utilized all available resources to obtain, update and review the patients current medications (includes all prescriptions, OTC, herbals, cannabis, and nutritional supplements).: Yes
[2024-08-05] MEDS: POLYMYXIN/TRIMETHOPRIM OPHTH 10 ML DROPS 1 DROP EACH EYE ×2 (16:56→20:36)
[2024-08-05] MEDS: SODIUM CHLORIDE 0.9% IV 1,000 ML 125 ML IV CONT (17:20)
[2024-08-05] MEDS: ASPIRIN 81 MG ENTERIC TABLET PO (20:35)
[2024-08-05] MEDS: MONTELUKAST SODIUM 10 MG TABLET PO (20:35)
[2024-08-05] MEDS: allopurinoL 300 MG TABLET PO (20:36)
[2024-08-05] MEDS: SIMVASTATIN 20 MG TABLET PO (20:36)
[2024-08-06] MEDS: VANCOMYCIN 1,500 MG/NS 500 ML 1,500 MG/500 ML BAG 250 MG IVPB ×2 (00:54→12:58)
[2024-08-06 06:00] VITALS: BP 151/89; PULSE 60; RESP 16; TEMP 36.6; O2SAT 95
[2024-08-06] MEDS: PIPERACILLN/TAZ 3.375GM/NS50ML 3.375 GM/50 ML BAG IVPB ×3 (06:05→17:37)
[2024-08-06] MEDS: POLYMYXIN/TRIMETHOPRIM OPHTH 10 ML DROPS 1 DROP EACH EYE ×5 (06:05→20:59)
[2024-08-06] MEDS: SODIUM CHLORIDE 0.9% IV 1,000 ML 125 ML IV CONT (06:08)
[2024-08-06 06:34] LABS: Basophils Absolute Auto 0.1 K/mm3 (0.0-0.1); Basophils Percent Auto 0.5 % (0.2-1.2); Eosinophils Absolute Auto 0.3 K/mm3 (0-0.3); Eosinophils Percent Auto 3.3 % (0-4.4); Hematocrit 36.6 % (42.0-52.0); Immature Granulocyte Absolute 0.03 K/mm3 (0.00-0.031); Immature Granulocyte Percent A 0.3 % (0-0.5); Lymphocytes Absolute Auto 2.86 K/mm3 (0.9-3.2); Lymphocytes Percent Auto 29.1 % (18.3-44.2); Mean Corpuscular HGB Conc 32.8 g/dl (32-36); Mean Corpuscular Hemoglobin 30.6 pg (26-34); Mean Corpuscular Volume 93.4 fl (80-100); Mean Platelet Volume 10.7 fl (7.4-10.4); Monocytes Absolute Auto 0.6 K/mm3 (0.1-0.6); Monocytes Percent Auto 5.8 % (2.6-8.5); Platelet Count Result 208 k/mm3 (150-375); Red Blood Count 3.92 M/mm3 (4.6-6.20); White Blood Count 9.8 K/mm3 (4.5-10.0)
[2024-08-06 06:48] LABS: Anion Gap 3 mmol/L (4-12); Blood Urea Nitrogen 23 mg/dL (9-20); Calcium 8.8 mg/dL (8.4-10.2); Carbon Dioxide 25 mmol/L (22-30); Chloride 107 mmol/L (98-107); Estimated CRCL calculation 129 ml/min; Estimated Glomerular Filt Rate > 60; Glucose 97 mg/dL (65-110); Potassium 3.9 mmol/L (3.4-5.0); Sodium 135 mmol/L (137-145)
--- NOTE | 2024-08-06 08:17 | PM.IMPN ---
Progress Note: A&P Assessment and Plan (1) Ground-level fall: Code(s): W18.30XA - Fall on same level, unspecified, initial encounter Status: Acute (2) Periorbital cellulitis of left eye: Code(s): L03.213 - Periorbital cellulitis Status: Acute (3) HTN (hypertension): Qualifiers: Hypertension type: primary hypertension Qualified Code(s): I10 - Essential (primary) hypertension Code(s): I10 - Essential (primary) hypertension Status: Chronic (4) Mass of left upper extremity: Code(s): R22.32 - Localized swelling, mass and lump, left upper limb Status: Acute (5) Dysphagia: Code(s): R13.10 - Dysphagia, unspecified Status: Acute (6) Colon cancer screening: Code(s): Z12.11 - Encounter for screening for malignant neoplasm of colon Status: Acute Plan (1) Periorbital cellulitis of left eye: Code(s): L03.213 - Periorbital cellulitis Status: Acute Assessment and Plan: - did not meet SIRS criteria. Blood cultures obtained in the ED, follow. - CT face: 1. Left periorbital soft tissue swelling, consistent with synovitis. No orbital involvement. - started on vancomycin IVPB, Zosyn IVPB, and Polytrim topical to left eye - lactic 1.2 and CRP <0.5 - analgesics p.r.n. - visual field checks q6h x 24 hours - ice application p.r.n. 08/06: Patient is afebrile overnight, cellulitis is improving, sweating is subsiding, still has blisters, patient denies vision change or eye pain (2) Ground-level fall: Code(s): W18.30XA - Fall on same level, unspecified, initial encounter Status: Acute Assessment and Plan: - trauma workup negative for acute fracture/traumatic finding, included head CT, C-spine CT, CXR/rib XR and facial CT. Facial CT significant for synovitis, see above. - fall precautions - PT/OT eval and treat - analgesics p.r.n. (3) HTN (hypertension): Qualifiers: Hypertension type: primary hypertension Qualified Code(s): I10 - Essential (primary) hypertension Code(s): I10 - Essential (primary) hypertension Status: Chronic Assessment and Plan: - chronic, currently 152/74 - continue home medications: losartan-hydrochlorothiazide 100-25 mg daily - monitor Dehydration, hyponatremia BMP 23, creatinine 0.7 today, sodium 135 Start normal saline IV Subjective Date/time seen: 08/06/24 08:17 Interval history: Patient is afebrile, blood pressure stable over the night labs reviewed. No new issue even over the night. Patient denies vision change, headache, nausea vomiting Exam Narrative: GENERAL: Pleasant, in no acute distress. Well-nourished. - EYES: EOMI. Anicteric. Left periorbital cellulitis with blisters - HENT: Moist mucous membranes. - LUNGS: Clear to auscultation bilaterally, no wheezing, rhonchi, or rales. - CARDIOVASCULAR: Regular rate and rhythm. No murmur. No JVD. - ABDOMEN: Soft, non-tender and non-distended. No palpable masses. - EXTREMITIES: No edema. Peripheral pulses 2+. Non-tender. - NEUROLOGIC: No focal neurological deficits. CN II-XII grossly intact. - PSYCHIATRIC: Awake, Alert and oriented x 3. Appropriate mood and affect. - SKIN: No rashes or lesions. Warm. - LYMPH: No cervical lymphadenopathy. Objective Data Vital Signs Vital Signs: Vital Signs - 24 hr 08/05/24 09:40 08/05/24 09:45 08/05/24 11:38 Temperature Pulse Rate 62 Respiratory Rate 20 Blood Pressure 150/72 H Pulse Oximetry 96 97 97 08/05/24 14:04 08/05/24 20:39 08/06/24 06:00 Temperature 97.4 F L 97.8 F Pulse Rate 73 69 60 Respiratory Rate 20 20 16 Blood Pressure 152/74 H 106/81 151/89 H Pulse Oximetry 95 93 95 Intake/Output Intake/Output: Intake & Output 08/03/24 08/04/24 08/05/24 08/06/24 23:59 23:59 23:59 23:59 Intake Total 100 1800 Balance 100 1800 Meds/Results Medications: Active Medications Generic Name Dose Route Start Last Admin Trade Name Freq PRN Reason Stop Dose Admin Acetaminophen 650 mg 08/05/24 12:16 Acetaminophen 325 Mg Tablet PO Q4H PRN Mild Pain (1-3) or Fever Hydrocodone Bitart/Acetaminophen 1 tab 08/05/24 16:14 Hydrocodone/Acetaminophen (*Crx) 5-325 Mg Tablet PO Q6H PRN Pain Rated 4-6 Allopurinol 300 mg 08/05/24 21:00 08/05/24 20:36 Allopurinol 300 Mg Tablet PO 300 mg HS KAT Administration Aspirin 81 mg 08/05/24 21:00 08/05/24 20:35 Aspirin 81 Mg Enteric Tablet PO 81 mg HS KAT Administration Fish Oil 1 gm 08/06/24 09:00 [place] 3 Polyunsat Fatty Acids 1 Gm Cap PO QAM KAT Hydrochlorothiazide 25 mg 08/06/24 09:00 Hydrochlorothiazide 25 Mg Tablet PO DAILY KAT Vancomycin HCl 1,500 mg in 500 mls @ 250 mls/hr 08/06/24 01:00 08/06/24 02:54 Vancomycin 1,500 Mg/Ns 500 Ml IVPB Infused Q12H KAT Infusion Sodium Chloride 1,000 mls @ 125 mls/hr 08/05/24 12:20 08/06/24 06:08 Normal Saline Iv IV CONT 125 mls/hr .Q8H KAT Administration Piperacillin/Tazobactam/Dextrose 3.375 gm in 50 mls @ 100 mls/hr 08/05/24 18:00 08/06/24 06:05 Zosyn 3.375 Gm/Ns 50 Ml IVPB 100 mls/hr Q6H KAT Administration Lidocaine 1 patch 08/06/24 09:00 Lidocaine 5% Patch TRANSDERM DAILY ON LICENSE OF [facility] Losartan Potassium 100 mg 08/06/24 09:00 Losartan Potassium 100 Mg Tablet PO DAILY KAT Montelukast Sodium 10 mg 08/05/24 21:00 08/05/24 20:35 Montelukast Sodium 10 Mg Tablet PO 10 mg HS KAT Administration Morphine Sulfate 2 mg 08/05/24 16:14 Morphine Sulfate (*Crx) 2 Mg/Ml Inj IV PUSH Q4H PRN Pain Rated 7-10 Multivitamins/Calcium 1 tablet 08/06/24 09:00 Therapeutic Multivitamins/Minerals Tab (*Bkc) PO DAILY ON LICENSE OF [facility] Polymyxin/Trimethoprim Sulfate 1 drop 08/05/24 17:00 08/06/24 06:05 Polymyxin/Trimethoprim Ophth 10 Ml Drops EACH EYE 1 drop Q4HWA KAT Administration Simvastatin 20 mg 08/05/24 21:00 08/05/24 20:36 Simvastatin 20 Mg Tablet PO 20 mg HS KAT Administration Radiology Results: ITS Impressions Ribs w/Chest X-Ray 08/05/24 09:49 IMPRESSION: 1. No rib fracture. Head CT 08/05/24 10:57 IMPRESSION: 1. Normal aging brain. Face CT 08/05/24 10:58 IMPRESSION: 1. Left periorbital soft tissue swelling, consistent with synovitis. No orbital involvement. Cervical Spine CT 08/05/24 11:00 IMPRESSION: 1. No fracture. 2. Moderate cervical spondylosis. Labs Labs: Laboratory Results - last 24 hr 08/05/24 08/05/24 08/06/24 09:40 10:26 05:34 WBC 9.1 9.8 RBC 4.22 L 3.92 L Hgb 13.2 L 12.0 L Hct 38.8 L 36.6 L MCV 91.9 93.4 MCH 31.3 30.6 MCHC 34.0 32.8 RDW 13.9 14.0 Plt Count 211 208 MPV 11.3 H 10.7 H Immature Gran % (Auto) 0.2 0.3 Neut % (Auto) 66.7 61.0 Lymph % (Auto) 24.1 29.1 [place] % (Auto) 5.8 5.8 Eos % (Auto) 2.7 3.3 Baso % (Auto) 0.5 0.5 Lymph # (Auto) 2.20 2.86 [place] # (Auto) 0.5 0.6 Eos # (Auto) 0.3 0.3 Baso # (Auto) 0.1 0.1 Abs Immat Gran (auto) 0.02 0.03 Absolute Neuts (auto) 6.1 6.0 Absolute Nucleated RBC 0.000 0.000 Nucleated RBC % 0.0 0.0 PT 13.0 INR 0.9 APTT 26.4 Sodium 139 135 L Potassium 3.5 3.9 Chloride 105 107 Carbon Dioxide 27 25 Anion Gap 7 3 L BUN 28 H 23 H Creatinine 0.70 0.70 Estim Creat Clear Calc 129 129 Estimated GFR > 60 > 60 Glucose 115 H 97 Lactic Acid 1.2 Calcium 9.3 8.8 Total Bilirubin 0.9 AST 28 ALT 23 Alkaline Phosphatase 46 C-Reactive Protein < 0.5 Total Protein 7.0 Albumin 4.1 Urine Color Yellow Urine Appearance Cloudy H Urine pH 6.0 Ur Specific Cut Off 1.026 Urine Protein Negative Urine Glucose (UA) Negative Urine Ketones Negative Ur Blood (Man) Negative Urine Nitrate Negative Urine Bilirubin Negative Urine Urobilinogen 0.2 Leukocyte Esterase Rfl Trace H Urine RBC 0-2 Urine WBC 11-20 H Ur Squamous Epith Cells Few Urine Bacteria Rare Urine Casts 0-2
[2024-08-06] MEDS: THERAPEUTIC MULTIVITAMINS/MINERALS TAB (*BKC) 1 TABLET PO (08:42)
[2024-08-06] MEDS: LOSARTAN POTASSIUM 100 MG TABLET PO (08:42)
[2024-08-06] MEDS: OMEGA 3 POLYUNSAT FATTY ACIDS 1 GM CAP PO (08:42)
[2024-08-06] MEDS: SODIUM CHLORIDE 0.9% IV 1,000 ML 100 ML IV CONT ×2 (08:42→20:59)
[2024-08-06] MEDS: LIDOCAINE 5% PATCH 1 PATCH TRANSDERM (08:43)
[2024-08-06] MEDS: hydroCHLOROthiazide 25 MG TABLET PO (08:43)
[2024-08-06 14:00] VITALS: BP 170/73; PULSE 63; RESP 20; TEMP 36.5; O2SAT 98
[2024-08-06] MEDS: SIMVASTATIN 20 MG TABLET PO (20:47)
[2024-08-06] MEDS: MONTELUKAST SODIUM 10 MG TABLET PO (20:47)
[2024-08-06] MEDS: ASPIRIN 81 MG ENTERIC TABLET PO (20:47)
[2024-08-06] MEDS: allopurinoL 300 MG TABLET PO (20:47)
[2024-08-06 21:42] VITALS: BP 139/75; PULSE 65; RESP 16; TEMP 36.7; O2SAT 97
[2024-08-07] MEDS: PIPERACILLN/TAZ 3.375GM/NS50ML 3.375 GM/50 ML BAG IVPB ×4 (00:04→17:20)
[2024-08-07 00:54] LABS: Vancomycin Trough 8.8 ug/mL (10.0-20.0)
[2024-08-07] MEDS: VANCOMYCIN 1,750 MG/NS 500 ML 1,750 MG/500 ML BAG 250 MG IVPB ×3 (01:41→18:00)
[2024-08-07] MEDS: HYDROcodone/acetaminophen (*CRX) 5-325 MG TABLET 1 TAB PO (05:00)
[2024-08-07] MEDS: POLYMYXIN/TRIMETHOPRIM OPHTH 10 ML DROPS 1 DROP EACH EYE ×5 (05:00→21:07)
[2024-08-07 06:00] VITALS: BP 160/83; PULSE 66; RESP 18; TEMP 37; O2SAT 97
[2024-08-07 08:26] LABS: Estimated CRCL calculation 129 ml/min; Estimated Glomerular Filt Rate > 60
[2024-08-07] MEDS: OMEGA 3 POLYUNSAT FATTY ACIDS 1 GM CAP PO (09:19)
[2024-08-07] MEDS: hydroCHLOROthiazide 25 MG TABLET PO (09:19)
[2024-08-07] MEDS: LIDOCAINE 5% PATCH 1 PATCH TRANSDERM (09:19)
[2024-08-07] MEDS: THERAPEUTIC MULTIVITAMINS/MINERALS TAB (*BKC) 1 TABLET PO (09:19)
[2024-08-07] MEDS: LOSARTAN POTASSIUM 100 MG TABLET PO (09:19)
--- NOTE | 2024-08-07 09:29 | P.PNIM_ITS ---
Progress Note: A&P Assessment and Plan (1) Ground-level fall: Code(s): W18.30XA - Fall on same level, unspecified, initial encounter Status: Acute (2) Periorbital cellulitis of left eye: Code(s): L03.213 - Periorbital cellulitis Status: Acute (3) HTN (hypertension): Qualifiers: Hypertension type: primary hypertension Qualified Code(s): I10 - Essential (primary) hypertension Code(s): I10 - Essential (primary) hypertension Status: Chronic (4) Mass of left upper extremity: Code(s): R22.32 - Localized swelling, mass and lump, left upper limb Status: Acute (5) Dysphagia: Code(s): R13.10 - Dysphagia, unspecified Status: Acute (6) Colon cancer screening: Code(s): Z12.11 - Encounter for screening for malignant neoplasm of colon Status: Acute Plan (1) Periorbital cellulitis of left eye: Code(s): L03.213 - Periorbital cellulitis Status: Acute Assessment and Plan: - did not meet SIRS criteria. Blood cultures obtained in the ED, follow. - CT face: 1. Left periorbital soft tissue swelling, consistent with synovitis. No orbital involvement. - started on vancomycin IVPB, Zosyn IVPB, and Polytrim topical to left eye - lactic 1.2 and CRP <0.5 - analgesics p.r.n. - visual field checks q6h x 24 hours - ice application p.r.n. 08/06: Patient is afebrile overnight, cellulitis is improving, sweating is subsiding, still has blisters, patient denies vision change or eye pain 08/07: Urine culture blood culture has no growth. Cellulitis improving, continue current antibiotics (2) Ground-level fall: Code(s): W18.30XA - Fall on same level, unspecified, initial encounter Status: Acute Assessment and Plan: - trauma workup negative for acute fracture/traumatic finding, included head CT, C-spine CT, CXR/rib XR and facial CT. Facial CT significant for synovitis, see above. - fall precautions - PT/OT eval and treat - analgesics p.r.n. (3) HTN (hypertension): Qualifiers: Hypertension type: primary hypertension Qualified Code(s): I10 - Essential (primary) hypertension Code(s): I10 - Essential (primary) hypertension Status: Chronic Assessment and Plan: - chronic, currently 152/74 - continue home medications: losartan-hydrochlorothiazide 100-25 mg daily - monitor Dehydration, hyponatremia BMP 23, creatinine 0.7 today, sodium 135 Start normal saline IV Subjective Date/time seen: 08/07/24 09:29 Interval history: Patient is afebrile, blood pressure stable over the night labs reviewed. No new issue even over the night. Patient denies vision change, headache, nausea vomiting. left periorbital Cellulitis is improving Exam Narrative: GENERAL: Pleasant, in no acute distress. Well-nourished. - EYES: EOMI. Anicteric. Left periorbit al cellulitis with blisters - HENT: Moist mucous membranes. - LUNGS: Clear to auscultation bilateral ly, no wheezing, rhonchi, or rales. - CARDIOVASCULAR: Regular rate and rhyth m. No murmur. No JVD. - ABDOMEN: Soft, non-tender and non-dist ended. No palpable masses. - EXTREMITIES: No edema. Peripheral puls es 2+. Non-tender. - NEUROLOGIC: No focal neurological defi cits. CN II-XII grossly intact. - PSYCHIATRIC: Awake, Alert and oriented x 3. Appropriate mood and affect. - SKIN: No rashes or lesions. Warm. - LYMPH: No cervical lymphadenopathy. Objective Data Vital Signs Vital Signs: Vital Signs - 24 hr 08/06/24 13:50 08/06/24 14:00 08/06/24 21:42 Temperature 97.7 F 98.0 F Pulse Rate 63 65 Respiratory Rate 20 16 Blood Pressure 170/73 H 139/75 Pulse Oximetry 98 97 Oxygen Delivery Room Air 08/07/24 06:00 Temperature 98.6 F Pulse Rate 66 Respiratory Rate 18 Blood Pressure 160/83 H Pulse Oximetry 97 Oxygen Delivery Intake/Output Intake/Output: Intake & Output 08/04/24 08/05/24 08/06/24 08/07/24 23:59 23:59 23:59 23:59 Intake Total 100 3788 500 Balance 100 3788 500 Meds/Results Medications: Active Medications Generic Name Dose Route Start Last Admin Trade Name Freq PRN Reason Stop Dose Admin Acetaminophen 650 mg 08/05/24 12:16 Acetaminophen 325 Mg Tablet PO Q4H PRN Mild Pain (1-3) or Fever Hydrocodone Bitart/Acetaminophen 1 tab 08/05/24 16:14 08/07/24 05:00 Hydrocodone/Acetaminophen (*Crx) 5-325 Mg Tablet PO 1 tab Q6H PRN Administration Pain Rated 4-6 Allopurinol 300 mg 08/05/24 21:00 08/06/24 20:47 Allopurinol 300 Mg Tablet PO 300 mg HS KAT Administration Aspirin 81 mg 08/05/24 21:00 08/06/24 20:47 Aspirin 81 Mg Enteric Tablet PO 81 mg HS KAT Administration Fish Oil 1 gm 08/06/24 09:00 08/07/24 09:19 [place] 3 Polyunsat Fatty Acids 1 Gm Cap PO 1 gm QAM KAT Administration Hydrochlorothiazide 25 mg 08/06/24 09:00 08/07/24 09:19 Hydrochlorothiazide 25 Mg Tablet PO 25 mg DAILY KAT Administration Piperacillin/Tazobactam/Dextrose 3.375 gm in 50 mls @ 100 mls/hr 08/05/24 18:00 08/07/24 05:00 Zosyn 3.375 Gm/Ns 50 Ml IVPB 100 mls/hr Q6H KAT Administration Sodium Chloride 1,000 mls @ 100 mls/hr 08/06/24 08:25 08/06/24 20:59 Normal Saline Iv IV CONT 100 mls/hr .Q10H KAT Administration Vancomycin HCl 1,750 mg in 500 mls @ 250 mls/hr 08/07/24 02:00 08/07/24 01:41 Vancomycin 1,750 Mg/Ns 500 Ml IVPB 250 mls/hr Q8H KAT Administration Lidocaine 1 patch 08/06/24 09:00 08/07/24 09:19 Lidocaine 5% Patch TRANSDERM 1 patch DAILY KAT Administration Losartan Potassium 100 mg 08/06/24 09:00 08/07/24 09:19 Losartan Potassium 100 Mg Tablet PO 100 mg DAILY KAT Administration Montelukast Sodium 10 mg 08/05/24 21:00 08/06/24 20:47 Montelukast Sodium 10 Mg Tablet PO 10 mg HS KAT Administration Morphine Sulfate 2 mg 08/05/24 16:14 Morphine Sulfate (*Crx) 2 Mg/Ml Inj IV PUSH Q4H PRN Pain Rated 7-10 Multivitamins/Calcium 1 tablet 08/06/24 09:00 08/07/24 09:19 Therapeutic Multivitamins/Minerals Tab (*Bkc) PO 1 tablet DAILY KAT Administration Polymyxin/Trimethoprim Sulfate 1 drop 08/05/24 17:00 08/07/24 09:20 Polymyxin/Trimethoprim Ophth 10 Ml Drops EACH EYE 1 drop Q4HWA KAT Administration Simvastatin 20 mg 08/05/24 21:00 08/06/24 20:47 Simvastatin 20 Mg Tablet PO 20 mg HS KAT Administration Radiology Results: ITS Impressions Ribs w/Chest X-Ray 08/05/24 09:49 IMPRESSION: 1. No rib fracture. Head CT 08/05/24 10:57 IMPRESSION: 1. Normal aging brain. Face CT 08/05/24 10:58 IMPRESSION: 1. Left periorbital soft tissue swelling, consistent with synovitis. No orbital involvement. Cervical Spine CT 08/05/24 11:00 IMPRESSION: 1. No fracture. 2. Moderate cervical spondylosis. Labs Labs: Laboratory Results - last 24 hr 08/07/24 08/07/24 00:20 06:22 Creatinine 0.70 Estim Creat Clear Calc 129 Estimated GFR > 60 Vancomycin Trough 8.8 L
[2024-08-07 14:00] VITALS: BP 134/72; PULSE 69; RESP 20; TEMP 36.6; O2SAT 97
[2024-08-07] MEDS: SIMVASTATIN 20 MG TABLET PO (21:07)
[2024-08-07] MEDS: MONTELUKAST SODIUM 10 MG TABLET PO (21:07)
[2024-08-07] MEDS: allopurinoL 300 MG TABLET PO (21:07)
[2024-08-07] MEDS: ASPIRIN 81 MG ENTERIC TABLET PO (21:07)
[2024-08-07 21:23] VITALS: BP 145/65; PULSE 56; RESP 18; TEMP 36.4; O2SAT 100
[2024-08-08] MEDS: PIPERACILLN/TAZ 3.375GM/NS50ML 3.375 GM/50 ML BAG IVPB ×2 (00:49→05:47)
[2024-08-08 02:21] LABS: Vancomycin Trough 17.6 ug/mL (10.0-20.0)
[2024-08-08] MEDS: VANCOMYCIN 1,750 MG/NS 500 ML 1,750 MG/500 ML BAG 250 MG IVPB (02:40)
[2024-08-08 05:33] VITALS: BP 148/74; PULSE 63; RESP 20; TEMP 36.6; O2SAT 97
[2024-08-08] MEDS: POLYMYXIN/TRIMETHOPRIM OPHTH 10 ML DROPS 1 DROP EACH EYE ×2 (05:48→09:16)
[2024-08-08 07:07] LABS: Anion Gap 4 mmol/L (4-12); Blood Urea Nitrogen 15 mg/dL (9-20); Calcium 9.1 mg/dL (8.4-10.2); Carbon Dioxide 28 mmol/L (22-30); Chloride 107 mmol/L (98-107); Estimated CRCL calculation 129 ml/min; Estimated Glomerular Filt Rate > 60; Glucose 102 mg/dL (65-110); Potassium 4.2 mmol/L (3.4-5.0); Sodium 139 mmol/L (137-145)
--- NOTE | 2024-08-08 08:40 | P.PNIM_ITS ---
Progress Note: A&P Assessment and Plan (1) Ground-level fall: Code(s): W18.30XA - Fall on same level, unspecified, initial encounter Status: Acute (2) Periorbital cellulitis of left eye: Code(s): L03.213 - Periorbital cellulitis Status: Acute (3) HTN (hypertension): Qualifiers: Hypertension type: primary hypertension Qualified Code(s): I10 - Essential (primary) hypertension Code(s): I10 - Essential (primary) hypertension Status: Chronic (4) Mass of left upper extremity: Code(s): R22.32 - Localized swelling, mass and lump, left upper limb Status: Acute (5) Dysphagia: Code(s): R13.10 - Dysphagia, unspecified Status: Acute (6) Colon cancer screening: Code(s): Z12.11 - Encounter for screening for malignant neoplasm of colon Status: Acute Plan Periorbital cellulitis of left eye: Code(s): L03.213 - Periorbital cellulitis Status: Acute Assessment and Plan: did not meet SIRS criteria. Blood cultures obtained in the ED, follow. - CT face: 1. Left periorbital soft tissue swelling, consistent with synovitis. No orbital involvement. - started on vancomycin IVPB, Zosyn IVPB, and Polytrim topical to left eye - lactic 1.2 and CRP <0.5 - analgesics p.r.n. - visual field checks q6h x 24 hours - ice application p.r.n. 08/06: Patient is afebrile overnight, cellulitis is improving, sweating is subsiding, still has blisters, patient denies vision change or eye pain 08/07: Urine culture blood culture has no growth. Cellulitis improving, continue current antibiotics 08/08: Facial cellulitis has improved significantly, swelling has resolved, changed doxycycline and Augmentin p.o. for 5 more days. Recommend patient to see primary care doctor in 5 days for evaluation. Recommend patient come back ED if the cellulitis is getting worse Ground-level fall: Code(s): W18.30XA - Fall on same level, unspecified, initial encounter Status: Acute Assessment and Plan: - trauma workup negative for acute fracture/traumatic finding, included head CT, C-spine CT, CXR/rib XR and facial CT. Facial CT significant for synovitis, see above. - fall precautions - PT/OT eval and treat - analgesics p.r.n. Patient does not have focal weakness, vision change, dizziness or unstable gait PT OT evaluated patient, recommended discharge HTN (hypertension): Qualifiers: Hypertension type: primary hypertension Qualified Code(s): I10 - Essential (primary) hypertension Code(s): I10 - Essential (primary) hypertension Status: Chronic Assessment and Plan: - chronic, currently 152/74 - continue home medications: losartan-hydrochlorothiazide 100-25 mg daily - monitor, blood pressure is controlled Dehydration, hyponatremia BMP 23, creatinine 0.7 today, sodium 135 Received normal saline IV Sodium 139, BUN creatinine ratio 15/0.7 today Subjective Date/time seen: 08/08/24 08:40 Interval history: I saw examined patient in present the patient's . No new issue even over the night. Patient denies vision change, headache, nausea vomiting. left periorbital Cellulitis continue to improve, patient is afebrile, Exam Narrative: GENERAL: Pleasant, in no acute distress. Well-nourished. - EYES: EOMI. Anicteric. Left periorbit al cellulitis with blisters - HENT: Moist mucous membranes. - LUNGS: Clear to auscultation bilateral ly, no wheezing, rhonchi, or rales. - CARDIOVASCULAR: Regular rate and rhyth m. No murmur. No JVD. - ABDOMEN: Soft, non-tender and non-dist ended. No palpable masses. - EXTREMITIES: No edema. Peripheral puls es 2+. Non-tender. - NEUROLOGIC: No focal neurological defi cits. CN II-XII grossly intact. - PSYCHIATRIC: Awake, Alert and oriented x 3. Appropriate mood and affect. - LYMPH: No cervical lymphadenopathy. Objective Data Vital Signs Vital Signs: Vital Signs - 24 hr 08/07/24 14:00 08/07/24 21:23 08/08/24 05:33 Temperature 97.8 F 97.6 F 97.9 F Pulse Rate 69 56 L 63 Respiratory Rate 20 18 20 Blood Pressure 134/72 145/65 H 148/74 H Pulse Oximetry 97 100 97 Intake/Output Intake/Output: Intake & Output 08/05/24 08/06/24 08/07/24 08/08/24 23:59 23:59 23:59 23:59 Intake Total 100 3788 2630 400 Balance 100 3788 2630 400 Meds/Results Medications: Active Medications Generic Name Dose Route Start Last Admin Trade Name Freq PRN Reason Stop Dose Admin Acetaminophen 650 mg 08/05/24 12:16 Acetaminophen 325 Mg Tablet PO Q4H PRN Mild Pain (1-3) or Fever Hydrocodone Bitart/Acetaminophen 1 tab 08/05/24 16:14 08/07/24 05:00 Hydrocodone/Acetaminophen (*Crx) 5-325 Mg Tablet PO 1 tab Q6H PRN Administration Pain Rated 4-6 Allopurinol 300 mg 08/05/24 21:00 08/07/24 21:07 Allopurinol 300 Mg Tablet PO 300 mg HS KAT Administration Aspirin 81 mg 08/05/24 21:00 08/07/24 21:07 Aspirin 81 Mg Enteric Tablet PO 81 mg HS KAT Administration Fish Oil 1 gm 08/06/24 09:00 08/07/24 09:19 [place] 3 Polyunsat Fatty Acids 1 Gm Cap PO 1 gm QAM KAT Administration Hydrochlorothiazide 25 mg 08/06/24 09:00 08/07/24 09:19 Hydrochlorothiazide 25 Mg Tablet PO 25 mg DAILY KAT Administration Piperacillin/Tazobactam/Dextrose 3.375 gm in 50 mls @ 100 mls/hr 08/05/24 18:00 08/08/24 05:47 Zosyn 3.375 Gm/Ns 50 Ml IVPB 100 mls/hr Q6H KAT Administration Vancomycin HCl 1,750 mg in 500 mls @ 250 mls/hr 08/07/24 02:00 08/08/24 02:40 Vancomycin 1,750 Mg/Ns 500 Ml IVPB 250 mls/hr Q8H KAT Administration Lidocaine 1 patch 08/06/24 09:00 08/07/24 09:19 Lidocaine 5% Patch TRANSDERM 1 patch DAILY KAT Administration Losartan Potassium 100 mg 08/06/24 09:00 08/07/24 09:19 Losartan Potassium 100 Mg Tablet PO 100 mg DAILY KAT Administration Montelukast Sodium 10 mg 08/05/24 21:00 08/07/24 21:07 Montelukast Sodium 10 Mg Tablet PO 10 mg HS KAT Administration Morphine Sulfate 2 mg 08/05/24 16:14 Morphine Sulfate (*Crx) 2 Mg/Ml Inj IV PUSH Q4H PRN Pain Rated 7-10 Multivitamins/Calcium 1 tablet 08/06/24 09:00 08/07/24 09:19 Therapeutic Multivitamins/Minerals Tab (*Bkc) PO 1 tablet DAILY KAT Administration Polymyxin/Trimethoprim Sulfate 1 drop 08/05/24 17:00 08/08/24 05:48 Polymyxin/Trimethoprim Ophth 10 Ml Drops EACH EYE 1 drop Q4HWA KAT Administration Simvastatin 20 mg 08/05/24 21:00 08/07/24 21:07 Simvastatin 20 Mg Tablet PO 20 mg HS KAT Administration Radiology Results: ITS Impressions Ribs w/Chest X-Ray 08/05/24 09:49 IMPRESSION: 1. No rib fracture. Head CT 08/05/24 10:57 IMPRESSION: 1. Normal aging brain. Face CT 08/05/24 10:58 IMPRESSION: 1. Left periorbital soft tissue swelling, consistent with synovitis. No orbital involvement. Cervical Spine CT 08/05/24 11:00 IMPRESSION: 1. No fracture. 2. Moderate cervical spondylosis. Labs Labs: Laboratory Results - last 24 hr 08/08/24 08/08/24 01:01 05:52 Sodium 139 Potassium 4.2 Chloride 107 Carbon Dioxide 28 Anion Gap 4 BUN 15 D Creatinine 0.70 Estim Creat Clear Calc 129 Estimated GFR > 60 Glucose 102 Calcium 9.1 Vancomycin Trough 17.6
[2024-08-08] MEDS: THERAPEUTIC MULTIVITAMINS/MINERALS TAB (*BKC) 1 TABLET PO (09:16)
[2024-08-08] MEDS: LIDOCAINE 5% PATCH 1 PATCH TRANSDERM (09:16)
[2024-08-08] MEDS: OMEGA 3 POLYUNSAT FATTY ACIDS 1 GM CAP PO (09:16)
[2024-08-08] MEDS: LOSARTAN POTASSIUM 100 MG TABLET PO (09:16)
[2024-08-08] MEDS: hydroCHLOROthiazide 25 MG TABLET PO (09:16)
[2024-08-08 09:59] VITALS: O2SAT 96
--- NOTE | 2024-08-08 11:32 | P.DS_ITS ---
DS: Admitting Diagnosis Discharge Date 08/08 Admitting Diagnosis (1) Ground-level fall: Code(s): W18.30XA - Fall on same level, unspecified, initial encounter Status: Acute (2) Periorbital cellulitis of left eye: Code(s): L03.213 - Periorbital cellulitis Status: Acute (3) HTN (hypertension): Qualifiers: Hypertension type: primary hypertension Qualified Code(s): I10 - Essential (primary) hypertension Code(s): I10 - Essential (primary) hypertensi DS: Discharge Diagnosis Discharge Diagnosis (1) Ground-level fall: Code(s): W18.30XA - Fall on same level, unspecified, initial encounter Status: Acute (2) Periorbital cellulitis of left eye: Code(s): L03.213 - Periorbital cellulitis Status: Acute (3) HTN (hypertension): Qualifiers: Hypertension type: primary hypertension Qualified Code(s): I10 - Essential (primary) hypertension Code(s): I10 - Essential (primary) hypertension Status: Chronic (4) Mass of left upper extremity: Code(s): R22.32 - Localized swelling, mass and lump, left upper limb Status: Acute (5) Dysphagia: Code(s): R13.10 - Dysphagia, unspecified Status: Acute (6) Colon cancer screening: Code(s): Z12.11 - Encounter for screening for malignant neoplasm of colon Status: Acute DS: Summary Hospital Course Hospital Course: 69 y/o M presents here with facial swelling and left rib pain post-fall with PMH of hypertension, hyperlipidemia, asthma, and gout. The patient presents here from home for further evaluation left facial swelling and pain to left ribs post fall. He reports that Tuesday morning (08/01) he sustained a ground level fall while walking to his shop. He reports he stumbled and lost his balance falling onto his left side with a strike to the left side of his face, head, and chest wall. +/- loss of consciousness, patient is unsure. Post fall he reported left facial pain, laceration near left lateral eyebrow, and associated swelling/bruising. Patient did wash out the wound with soap and water multiple times, left laceration open, and tried to avoid touching region. Did not seek initial evaluation due to no initial concerns. Then developed drainage from the left eye and the laceration yesterday afternoon, initially orange/brown. Drainage increased in volume overnight which prompted him to seek care. Now reporting headache, facial pain, left eye matting and discharge, periorbital pain, neck pain, left chest soreness that worsens with inspiration, and left dental pain. He describes the headache as occipital, nonradiating, intermittent, aggravated by lying flat for extended period, and alleviated by moving positions. Patient believes the headache is from laying flat which he does not typically do. Left eye matting and discharge are not accompanied by vision changes. Chest wall pain is/is not accompanied by shortness of breath, palpitations, or midsternal chest pain. Denies dysuria, urinary frequency, hesitancy, or suprapubic/abdominal pain. Initial VS at presentation: 97? F, HR 70, RR 18, 187/100, and 97% on RA. ED workup showed: No leukocytosis, hemoglobin 13.2 (no previous available for comparison), normal coags, no significant electrolyte derangement, creatinine 0.7 and GFR >60, glucose 115, lactic 1.2, CRP negative. UA showed cloudy appearance, trace leuks, 11-20 WBC, few epithelial cells, rare bacteria. Rib/CXR showed no rib fracture. Head CT showed normal aging brain. C-spine CT showed no fracture and moderate cervical spondylosis. Face CT showed left periorbital soft tissue swelling, consistent with synovitis. No orbital involvement. Periorbital cellulitis of left eye: Code(s): L03.213 - Periorbital cellulitis Status: Acute Assessment and Plan: did not meet SIRS criteria. Blood cultures obtained in the ED, follow. -CT face:Left periorbital soft tissue swelling, consistent with synovitis. No orbital involvement. - started on vancomycin IVPB, Zosyn IVPB, and Polytrim topical to left eye - lactic 1.2 and CRP <0.5 upon arrival - analgesics p.r.n. - visual field checks q6h x 24 hours - ice application p.r.n. 08/06: Patient is afebrile overnight, cellulitis is improving, sweating is subsiding, still has blisters, patient denies vision change or eye pain 08/07: Urine culture blood culture has no growth. Cellulitis improving, continue current antibiotics 08/08: Facial cellulitis has improved significantly, swelling has resolved, changed doxycycline and Augmentin p.o. for 5 more days. Recommend patient to see primary care doctor in 5 days for evaluation. Recommend patient come back ED if the cellulitis is getting worse The following med issues have been addressed during hospitalization Ground-level fall: Code(s): W18.30XA - Fall on same level, unspecified, initial encounter Status: Acute Assessment and Plan: - trauma workup negative for acute fracture/traumatic finding, included head CT, C-spine CT, CXR/rib XR and facial CT. Facial CT significant for synovitis, see above. - fall precautions - PT/OT eval and treat - analgesics p.r.n. Patient does not have focal weakness, vision change, dizziness or unstable gait PT OT evaluated patient, recommended discharge HTN (hypertension): Qualifiers: Hypertension type: primary hypertension Qualified Code(s): I10 - Essential (primary) hypertension Code(s): I10 - Essential (primary) hypertension Status: Chronic Assessment and Plan: - chronic, currently 152/74 - continue home medications: losartan-hydrochlorothiazide 100-25 mg daily - monitor, blood pressure is controlled Dehydration, hyponatremia BMP 23, creatinine 0.7 today, sodium 135 Received normal saline IV Sodium 139, BUN creatinine ratio 15/0.7 today Time Spent with Patient Time attestation: Total time spent providing and/or coordinating discharge services: Exam Narrative: GENERAL: Pleasant, in no acute distress. Well-nourished. - EYES: EOMI. Anicteric. Left periorbit al cellulitis with blisters - HENT: Moist mucous membranes. - LUNGS: Clear to auscultation bilateral ly, no wheezing, rhonchi, or rales. - CARDIOVASCULAR: Regular rate and rhyth m. No murmur. No JVD. - ABDOMEN: Soft, non-tender and non-dist ended. No palpable masses. - EXTREMITIES: No edema. Peripheral puls es 2+. Non-tender. - NEUROLOGIC: No focal neurological defi cits. CN II-XII grossly intact. - PSYCHIATRIC: Awake, Alert and oriented x 3. Appropriate mood and affect. - LYMPH: No cervical lymphadenopathy. DS: Data Data Completed and Pending Labs on day of discharge: Labs from last 24 hours 08/08/24 08/08/24 05:52 01:01 Sodium 139 Potassium 4.2 Chloride 107 Carbon Dioxide 28 Anion Gap 4 BUN 15 D Creatinine 0.70 Estim Creat Clear Calc 129 Estimated GFR > 60 Glucose 102 Calcium 9.1 Vancomycin Trough 17.6 Preliminary micro results at discharge 08/05/24 10:26 Blood Culture - Preliminary Blood 08/05/24 10:25 Blood Culture - Preliminary Blood Discharge Plan Discharge Attending physician on discharge: Bunny Adkins Discharging Clinician: Bunny Adkins Anticipated Discharge Date/Time: 08/08/24 11:18 Patient Disposition: Home, Self-Care Activity: no shower and as tolerated Diet: heart healthy Wound Care Instructions: keep dressing dry Patient Instructions: Antibiotic Form Patient Language: Egyptian Stand Alone Forms: General Discharge Information Follow-up/Referrals: Hernan,MD Aman [Primary Care Provider] - (Patient needs to see primary care doctor in 1 week) Discharge Medications: New amoxicillin-pot clavulanate 875-125 mg tablet 1 tablet PO Q12H Qty: 10 0RF doxycycline hyclate 100 mg capsule 100 mg PO Q12H Qty: 10 0RF Continued lfvlmutq-qjv-rrnsz-vit K-lycop 400-20-370 mcg tablet 1 tablet PO DAILY aspirin [Adult Aspirin Regimen] 81 mg tablet,delayed release (DR/EC) 81 mg PO HS Fish Oil 300-500 mg capsule 1 cap PO DAILY simvastatin 20 mg tablet 20 mg PO HS montelukast 10 mg tablet 10 mg PO HS allopurinol 300 mg tablet 300 mg PO HS losartan-hydrochlorothiazide 100-25 mg tablet 1 tablet PO DAILY Date of admission: 08/06/24 10:42 Primary Care Provider: HernanAman Admitting Provider: Trino Nair Attending physician on admission: Trino Nair Condition: Stable
--- NOTE | 2024-08-08 13:32 | PC.NURSE ---
Pt was discharged home with self care. Pt was educated on discharge and follow up instructions. Pt verbalizes understanding of instructions. Pt in room and verbalizes understanding. All pt questions were answered. Pt was monitored for any changes in status while here. Pt refused wheel chair and walked to personal vehicle.
== END 2024-08-08 12:05 | disposition home or self-care (01) | DRG 603 ==
LOC: ANHED 08:57 → ANH3MEDSUR 13:51
PROVIDERS: Student in an Organized Health Care Education/Training Program; Admitting Provider Internal Medicine; Emergency Provider Emergency Medicine; PCP Internal Medicine; Visit Provider Hospitalist
DX: L03.213 Periorbital cellulitis (principal); S01.112A Laceration without foreign body of left eyelid and periocular area, initial encounter; I10 Essential (primary) hypertension; J45.909 Unspecified asthma, uncomplicated; E78.5 Hyperlipidemia, unspecified; K21.9 Gastro-esophageal reflux disease without esophagitis; W19.XXXA Unspecified fall, initial encounter; Z79.82 Long term (current) use of aspirin; Z23 Encounter for immunization
CPT/HCPCS: 36415; 70450; 70487; 71046; 71100; 72125; 80048; 80053; 80202; 81001; 82565; 83605; 85025; 85610; 85730; 86140; 87040; 87086; 90471; 90715; 93005; 96361; 96365; 96366; 96367; 96375; 96376; 97161; 97165; 99285; A9270; G0378; J2543; J3370; J7030; Q9967

== ENCOUNTER 2024-08-30 07:29 | Outpatient (CLI) | payer MEDICARE, SELFPAY ==
--- NOTE | 2024-08-30 | ECHO_ITS ---
Patient Info Name: Bebeto Rasheed Age: 69 years : 1955 Gender: Male Ht: 72 in Wt: 330 lbs BSA: 2.83 m2 HR: 64 bpm BP: 174 / 90 mmHg Technical Quality: Fair Exam Date: 08/30/2024 8:11 AM Exam Location: Echo Lab Patient Status: Outpatient Admit Date: 08/30/2024 Staff Ordering Physician: RosalinoAman MD Rehabilitation Technician: Yasmin Nicholson RDCS Attending Provider: HernanAman MD Exam Type: CA echo doppler color flow Study Info Indications R55 - Syncope and collapse Complete two-dimensional, color flow and Doppler transthoracic echocardiogram is performed. Summary 1. Complete two-dimensional, color flow and Doppler transthoracic echocardiogram is performed. 2. Left ventricular chamber dimension is enlarged. 3. Left ventricular systolic function is mildly reduced, estimated at 50-55%. 4. There is no increased left ventricular wall thickness. 5. Left ventricular septal wall motion is normal. 6. The left ventricular diastolic function is grade I diastolic dysfunction. 7. Right ventricular chamber dimension is normal. 8. Right ventricular systolic function is normal. 9. There is no aortic valve stenosis. 10. There is no mitral valve regurgitation. 11. No pulmonary hypertension, estimated pulmonary arterial systolic pressure is 23 mmHg. Left Ventricle Left ventricular chamber dimension is enlarged. Left ventricular systolic function is mildly reduced, estimated at 50-55%. There is no increased left ventricular wall thickness. Left ventricular septal wall motion is normal. The left ventricular diastolic function is grade I diastolic dysfunction. Right Ventricle Right ventricular chamber dimension is normal. Right ventricular systolic function is normal. Left Atria Left atrial chamber dimension is normal. Right Atria Right atrial chamber dimension is normal. Aortic Valve The aortic valve is trileaflet. There is mild aortic valve sclerosis. There is no aortic valve stenosis. There is no aortic valve regurgitation. Pulmonic Valve The pulmonic valve is normal. Mitral Valve The mitral valve has normal leaflets. There is no mitral valve stenosis. There is no mitral valve regurgitation. Tricuspid Valve The tricuspid valve leaflets are normal. There is no significant tricuspid valve stenosis. There is mild tricuspid valve regurgitation. No pulmonary hypertension, estimated pulmonary arterial systolic pressure is 23 mmHg. Pericardium/Pleural The pericardium appears normal. There is no pericardial effusion. Inferior Vena Cava Normal inferior vena cava with >50% collapse upon inspiration consistent with normal right atrial pressure, 3 mmHg. Aorta The aortic root size at the sinus of Valsalva is normal. The prox ascending aorta size is normal. Left Ventricular Outflow Tract Name Value Normal LVOT 2D LVOT Diameter 2.2 cm LVOT Doppler LVOT Peak Gradient 6 mmHg LVOT Mean Gradient 4 mmHg LVOT VTI 27 cm LVOT VTI/AV VTI Ratio 0.8 LVOT Stroke Volume 106 ml LVOT CO 6.9 l/min LVOT CI 2.5 l/min/m2 Pulmonic Valve Name Value Normal RVOT Doppler RVOT Peak Gradient 3 mmHg PV Doppler PV Peak Gradient 10 mmHg Mitral Valve Name Value Normal MV Doppler MV Decel [place] 290 cm/s2 MV PHT 85 ms MV Area (PHT) 2.6 cm2 4.0-5.0 MV Diastolic Function MV E Peak Velocity 85 cm/s MV A Peak Velocity 108 cm/s MV E/A 0.8 MV Decel Time 293 ms Tricuspid Valve Name Value Normal TV Regurgitation Doppler TR Peak Velocity 225 cm/s TR Peak Gradient 20 mmHg Estimated PAP/RSVP RA Pressure 3 mmHg <=5 PA Systolic Pressure 23 mmHg <36 RV Systolic Pressure 23 mmHg <36 Aorta Name Value Normal Ascending Aorta Ao Root Diameter (MM) 3.2 cm Ao Root Diam Index (MM) 1.1 cm/m2 Aortic Valve Name Value Normal AV Doppler AV Peak Velocity 151 cm/s AV Peak Gradient 9 mmHg AV Mean Gradient 5 mmHg AV VTI 32 cm AV Area (Cont Eq VTI) 3.3 cm2 >=3.0 AV Area (Cont Eq Travon) 3.1 cm2 AV Regurgitation 2D LVOT Area 3.9 cm2 Ventricles Name Value Normal LV Dimensions 2D/MM IVS Diastolic Thickness (2D) 0.9 cm 0.6-1.0 IVS Diastole Thickness (MM) 0.9 cm 0.6-1.0 LVID Diastole (2D) 5.8 cm 4.2-5.8 LVID Diastole (MM) 7.0 cm 4.2-5.8 LVIW Diastolic Thickness (2D) 1.3 cm 0.6-1.0 LVIW Diastolic Thickness (MM) 1.0 cm 0.6-1.0 LVID Systole (2D) 4.2 cm 2.5-4.0 LVID Systole (MM) 3.8 cm 2.5-4.0 LVOT Diameter 2.2 cm LV Mass (2D Cubed) 272.12 g 88.00-224.00 LV Mass Index (2D Cubed) 96 g/m2 49-115 Relative Wall Thickness (2D) 0.45 LV Mass (MM Cubed) 303.04 g 88.00-224.00 LV Mass Index (MM Cubed) 107 g/m2 49-115 Relative Wall Thickness (MM) 0.29 LV Fractional Shortening/Ejection Fraction 2D/MM LV Fractional Shortening (2D) 29 % 25-43 LV Fractional Shortening (MM) 46 % 25-43 LV EF (MM Teicholz) 76 % 52-72 LV EF (2D Teicholz) 54 % 52-72 LV Diastolic Volume (4C MOD) 168 ml LV EF (4C MOD) 62 % LV Diastolic Volume (2C MOD) 124 ml LV EF (2C MOD) 46 % LV Diastolic Volume (BP MOD) 146 ml 62-150 LV Diastolic Volume Index (BP MOD) 52 ml/m2 34-74 LV Systolic Volume (BP MOD) 69 ml 21-61 LV Systolic Volume Index (BP MOD) 24 ml/m2 11-31 LV EF (BP MOD) 53 % 52-72 LV Diastolic Length (4C) 8.3 cm LV Systolic Length (4C) 7.0 cm LV Stroke Volume (4C MOD) 104 ml Atria Name Value Normal LA Dimensions LA Dimension (MM) 5.7 cm 3.0-4.1 LA Volume (4C A-L) 75 ml LA Volume (BP A-L) 76 ml RA Dimensions RA Area (4C) 16.6 cm2 <=18.0 Report Signatures
--- OUTSIDE RECORDS SUMMARY | 2024-09-06 03:22 | XMS_ITS | Continuity of Care Document ---
Author Organization [place] [facility] [place] Address [address] [place] [address] Care Team Providers Care Gleason Gear Generator Name Role Phone ESTEBAN JERRY Primary Care Provider [phone] Assessment Encounter Date Assessment Date Assessment LastModified by Organization Details LastModified Time 06/21/2024 06/21/2024 blood pressure under better control continue current therapy he will keep his regular follow up with me [email or web address] Not available 06/30/2024 21:01:57 Plan of Treatment Reminders Order Date Submit Date Provider Last Modified By Organization Details Last Modified Time Details Appointments ANY 15 025 09:15AM Esteban Jerry MD Not available Not available Not available Lab None record ed. Referral None record ed. Procedures None record ed. Surgeries None record ed. Imaging None record ed. Medication Orders None record ed. Patient TargetsNo targets recorded. Patient InstructionsNo instructions recorded. Reason for Referral None Reported. Results Created Date Observation Date Name Description Value Unit Range Abnormal Flag Note LastModifiedBy Organization Detail LastModifiedTime 08/05/2008/05/2024 XR, humer us No observ ation record ed. [place] [id number] [facility] [address], [place], [address], 08/05/2024 22:00:01 08/05/2008/05/2024 CT, brain , w/o contr ast No observ ation record ed. [place] [id number] [facility] [address], [place], [address], 08/06/2024 09:39:16 08/05/20 24 08/05/2024 CT, face, w/ contr ast No observ ation record ed. [address], [place], [address], 08/06/2024 09:45:08 08/05/20 24 08/05/2024 CT, cervi yasmeen spine , w/o contr ast No observ ation record ed. [address], [place], [address], 08/06/2024 10:39:35 08/13/20 24 04/28/2022 colon oscop y proce dure (PROC ) No observ ation record ed. [address], [place], [address], 08/14/2024 16:21:28 08/14/20 24 08/04/2022 exerc ise stres s test No observ ation record ed. [address], [place], [address], 08/14/2024 12:32:49 08/30/19 25 08/30/2024 US, echoc ardio gram No observ ation record ed. [address], [place], [address], 09/05/2024 22:38:16 09/02/19 25 08/31/2024 US, samir x, carot id arter y No observ ation record ed. [address], [place], [address], 09/05/2024 22:38:16 09/03/19 25 08/31/2024 US, samir x, carot id arter y No observ ation record ed. [address], [place], [address], 09/05/2024 22:38:16 Result Notes None recorded. Problems Name Problem SNOMED Code Status Onset Date Resolution Date Notes Provider Name and Address Organization Details Recorded Time Pain in left arm 026173855 Active 2023 Diana Bell MA null, [place] - [facility] 4 12:44:18 Gastroesophage al reflux disease without esophagitis 387949169 Active 2023 Esteban Jerry MD Attn: Tiffanie luna,[address] [facility], [place], [address], [place] [facility] 4 21:09:54 Chronic rhinitis 98595169 Active 2023 Esteban Jerry MD Attn: Tiffanie luna,[address] [facility], [place], [address], [place] [facility] 4 21:09:55 Gout 58375890 Active 2023 Esteban Jerry MD Attn: Tiffanie luna,[address] [place], [address], [place] [facility] 4 21:09:56 Hyperlipidemia 68025253 Active 2023 Esteban Jerry MD Attn: Tiffanie luna,[address] [place], [address], [place] [facility] 4 21:10:00 Essential hypertension 40633712 Active 2023 Esteban Jerry MD Attn: Tiffanie luna,[address] [place], [address], [place] [facility] 4 21:01:33 Problem Notes None recorded. Medical Equipment None Reported. Allergies No known drug allergies Medications Name Sig Start Date Stop Date Status Note LastModified by Organization Details LastModified Time doxycycli ne hyclate 100 mg capsule TAKE 1 CAPSULE BY MOUTH EVERY 12 HOURS active Not Available Not Available No t Available prednison e 20 mg tablet TAKE 2 TABLETS BY MOUTH EVERY DAY FOR 5 DAYS 03/26 completed Not Available Not Available Not Available cyanocoba светлана (vit B-12) 1,000 mcg tablet TAKE ONE TABLET BY MOUTH THREE DAYS A WEEK active Not Available Not Available No t Available losartan 100 mg-hydroc hlorothia zide 25 mg tablet Take 1 tablet every day by oral route. active Not Available Not Available No t Available simvastat in 20 mg tablet TAKE 1 TABLET BY MOUTH DAILY active Not Available Not Available No t Available omeprazol e 20 mg capsule,d elayed release active because of findings on ENT exam we will stay on this half-way per his ENT Not Available Not Available Not Available monteluka st 10 mg tablet TAKE 1 TABLET BY MOUTH EVERY DAY active Not Available Not Available No t Available allopurin ol 300 mg tablet TAKE 1 TABLET BY MOUTH DAILY WITH WATER active Not Available Not Available No t Available albuterol sulfate HFA 90 mcg/actua tion aerosol inhaler INHALE 2 PUFFS BY MOUTH EVERY 4 HOURS NEEDED active Not Available Not Available No t Available losartan 50 mg-hydroc hlorothia zide 12.5 mg tablet TAKE 1 TABLET BY MOUTH EVERY DAY 06/07 completed Changed to 100/[address] Jerry at BP check on 06/07/24 . Not Available Not Available Not Available fluticaso ne propionat e 50 mcg/actua tion nasal spray,tyrone pension SHAKE LIQUID AND USE 1 SPRAY IN EACH NOSTRIL EVERY DAY active PRN Not Available Not Available No t Available amoxicill in 875 mg-potass ium clavulana te 125 mg tablet TAKE 1 TABLET BY MOUTH EVERY 12 HOURS active Not Available Not Available No t Available Fish Oil active Not Available Not Avai lable Not Available multivita min active Not Available Not Available Not Available aspirin 81 mg capsule Take 1 capsule every day by oral route. active Not Available Not Available No t Available Vitals Date Recorded Body height Oxygen saturation Oxygen saturation in Arterial blood by Pulse oximetry Heart rate Systolic blood pressure Diastolic blood pressure Provider Name and Address Organization Details Last Updated DateTime 4 182.88 cm 97 % 97 % 63 /min 140 mm[Hg] 72 mm[Hg] Bev Torres MA [facility] 4 10:03:43 Social History Question Answer Notes LastModified by Organizat ion Details LastModified Time Tobacco Smoking Status Never Smoker Bee Wilder MA null, [place] - [facility] 06/01/2024 10:20:40 Do You Have An Advance Directive? Yes Information not available 06/01/2024 What Is Your Level Of Alcohol Consumption? Moderate Information not available 06/01/2024 Are You Blind Or Do You Have Difficulty Seeing? No Information not available 03/26/2024 What Is Your Level Of Caffeine Consumption? Occasional Information not available 06/01/2024 In The 14 Days Before Symptom Onset, Have You Had Close Contact With A Laboratory-confir med COVID-19 While That Case Was Ill? No Information not available 06/01/2024 In The 14 Days Before Symptom Onset, Have You Had Close Contact With A Person Who Is Under Investigation For COVID-19 While That Person Was Ill? No Information not available 06/01/2024 Have You Been To An Area Known To Be High Risk For COVID-19? No Information not available 06/01/2024 Are You Currently Employed? Yes Information not available 06/01/2024 Are You Deaf Or Do You Have Serious Difficulty Hearing? No Information not available 03/26/2024 What Type Of Diet Are You Following? REGULAR Information not available 03/26/2024 What Is Your Occupation? Self Employed Information not available 06/01/2024 Are There Any Guns Present In Your Home? No Information not available 06/01/2024 What Was The Date Of Your Most Recent Tobacco Screening? 08/13/2024 Information not available 08/13/2024 What Is Your Relationship Status? Information not available 03/26/2024 Do You Use Your Seat Belt Or Car Seat Routinely? Yes Information not available 03/26/2024 Do You Have Smoke And Carbon Monoxide Detectors In Your Home? Yes Information not available 06/01/2024 Do You Feel Stressed (tense, Restless, Nervous, Or Anxious, Or Unable To Sleep At Night)? [id number] Information not available 03/26/2024 Do You Use Any Illicit Or Recreational Drugs? No Information not available 06/01/2024 Do You Use Sunscreen Routinely? Yes Information not available 06/01/2024 Has Tobacco Cessation Counseling Been Provided? No Information not available 06/01/2024 Do You Or Have You Ever Used Any Other Forms Of Tobacco Or Nicotine? No Information not available 06/01/2024 Sex: Male Functional Status Question Answer Note LastModified by Organization D etails LastModified Time Are you able to care for yourself? Yes Information n ot available 03/26/2024 What is your exercise level? None Information not available 03/26/2024 Mental Status None recorded. Family History Nothing Reported. Medical History Condition Response Coronary Artery Disease N Other N Atrial Fibrillation N High Blood Pressure Y Thyroid Problems N Kidney or Bladder Problems N GI Problems N Depression N COPD N Blood Clots N Have you had a mammogram in the last yea r? N Skin Problems N Anemia N Heart Attack ([place]) N Diabetes N Anxiety Disorder N Muscle, Joint, or Bone Problems N Seizures/Epilepsy N Have you had a colonoscopy in the last 1 0 years? N Acid Reflux (GERD) N Cancer N Stroke N Asthma N Allergies N Have you had a PSA blood test in the las t year? N High Cholesterol Y Hepatitis N Liver Disease N Headaches N Osteoporosis N Heart Failure N Immunizations Vaccine Type Date Status Note Provider Nam e and Address Organization Details Recorded Time zoster recombinant 1 completed Inder Kings[place] null, [place] [facility] 03/26/2024 11:43:19 zoster recombinant 0 completed Inder Kigns[place] [facility] 03/26/2024 11:43:19 Influenza, high-dose, quadrivalent, PF 0 completed Inder [place] [facility] 03/26/2024 11:43:19 Influenza, high-dose, quadrivalent, PF 3 completed In[place] [facility] 03/26/2024 11:43:19 Influenza, high-dose, quadrivalent, PF 2 completed [place] [facility] 03/26/2024 11:43:19 Influenza, high-dose, quadrivalent, PF 1 completed [place] [facility] 03/26/2024 11:43:19 Influenza, adjuvanted, quadrivalent, PF 1 completed JOSAFAT [place] [facility] 03/26/2024 11:43:19 COVID-19, mRNA, LNP-S, PF, 100 mcg/0.5mL dose or 50 mcg/0.25mL dose 1 completed JOSAFAT [place], [place] [facility] 03/26/2024 11:43:19 COVID-19, mRNA, LNP-S, PF, 100 mcg/0.5mL dose or 50 mcg/0.25mL dose 1 completed JOSAFAT [place] [facility] 03/26/2024 11:43:19 COVID-19, mRNA, LNP-S, PF, 100 mcg/0.5mL dose or 50 mcg/0.25mL dose 1 completed JOSAFAT [place] [facility] 03/26/2024 11:43:19 RSV, recombinant, protein subunit RSVpreF, adjuvant reconstituted, 0.5 mL, PF 3 completed JOSAFAT [place] [facility] 03/26/2024 11:43:19 Influenza, high-dose, trivalent, PF 9 completed JOSAFAT [place] [facility] 03/26/2024 11:43:19 Influenza, split virus, trivalent, preservative 2 completed JOSAFAT [place] [facility] 03/26/2024 11:43:19 Influenza, split virus, trivalent, preservative 4 completed JOSAFAT [place] [facility] 03/26/2024 11:43:19 Influenza, split virus, quadrivalent, PF 8 completed [place]OSAFAT [place] [facility] 03/26/2024 11:43:19 Past Encounters Encounter ID Performer Location Encounter Start Date Encounter Closed Date Diagnosis/Indication Diagnosis SNOMED-CT Code Diagnosis ICD10 Code Diagnosis Note [id number] MD Renetta Mckeon (Adult Med) [address] [place] [address] 06/01/2024 09:55:57 06/01/2024 10:45:35 Morbid obesity 164485625 E66.01 Essential hypertension 39212806 I10 [id number] Diana Bell MA [facility] [place] [address] [place] [address] 06/07/2024 09:56:45 06/07/2024 10:41:35 Essential hypertension 78977538 I10 [id number] Esteban Jerry MD [facility] [place] [address] [place] [address] 06/21/2024 09:53:14 06/21/2024 10:15:36 Essential hypertension 69740945 I10 Health Concerns Section Related Observation LastModified by Organization Detai ls LastModified Time None Recorded Concern Status LastModified by Organization Details LastModified Time None Recorded Payers Encounter Date Sequence Insurance Name Policy Number Policy White Covered Member ID White Member ID Guarantor Name 06/21/2024 1 [place] Bebeto Rasheed [id number] Bebeto Rasheed 06/21/2024 2 [employer] (MEDICARE SUPPLEMENT) Bebeto Rasheed [id number] Bebeto Rasheed Notes Date Note Type Note Provider Name and Address Organization Details Recorded Time 06/21/2024 text/html tolerating the medication short interval follow up on blood pressure Esteban Jerry MD Attn: Accounting [facility], [place], [address], [facility] - [facility] 06/30/2024 21:02:15
--- OUTSIDE RECORDS SUMMARY | 2024-09-06 03:22 | XMS_ITS | Continuity of Care Document ---
Author Organization [place] - [facility] [place] Address [address] [place] [address] Care Team Providers Care Calcine Furnace Tender Name Role Phone ESTEBAN JERRY Primary Care Provider [phone] Assessment Encounter Date Assessment Date Assessment LastModified by Organization Details LastModified Time 08/13/2024 08/13/2024 labs from hospital reviewed. Obtain event monitor echocardiogram carotid duplex he needs to use his CPAP regularly he has not been using it he will keep his regular [email or web address] Not available 08/13/2024 23:19:00 Plan of Treatment Reminders Order Date Submit Date Provider Last Modified By Organization Details Last Modified Time Details Appointments ANY 15 2024 09:15A Usha Jerry MD Not available Not available Not available Lab None recorded. Referral None recorded. Procedures None recorded. Surgeries None recorded. Imaging event monitor - 30 day event monitor 2023 024 [facility] (Cardiology & Emg), [address], [address], 08/31/2024 17:29:07 US, echocardi ogram 2023 024 [facility] (Cardiology & Emg), [address], [address], 08/30/2024 17:51:04 US, duplex, carotid artery - 4 be there at 130pm. 2023 024 [facility] (Imaging), [facility] [address], [address], 09/02/2024 19:36:18 Medication Orders None recorded. Patient TargetsNo targets recorded. Patient InstructionsNo instructions recorded. Reason for Referral None Reported. Results Created Date Observation Date Name Description Value Unit Range Abnormal Flag Note LastModifiedBy Organization Detail LastModifiedTime 08/05/20 24 08/05/2024 XR, mimier us No observ ation record ed. [address] [facility], [place], [address], 08/05/2024 22:00:01 08/05/20 24 08/05/2024 CT, brain , w/o contr ast No observ ation record ed. [place] [address], [place], [address], 08/06/2024 09:39:16 08/05/20 24 08/05/2024 CT, face, w/ contr ast No observ ation record ed. [place] [address] [address], [place], [address], 08/06/2024 09:45:08 08/05/20 24 08/05/2024 CT, cervi yasmeen spine , w/o contr ast No observ ation record ed. [place] [address], [place], [address], 08/06/2024 10:39:35 08/13/20 24 04/28/2022 colon oscop y proce dure (PROC ) No observ ation record ed. [address], [place], [address], 08/14/2024 16:21:28 08/14/20 24 08/04/2022 exerc ise stres s test No observ ation record ed. [address], [place], [address], 08/14/2024 12:32:49 08/30/19 25 08/30/2024 US, echoc ardio gram No observ ation record ed. [address] [facility], [place], [address], 09/05/2024 22:38:16 09/02/19 25 08/31/2024 US, floramilton timmons, carot id arter y No observ ation record ed. [address], [place], [address], 09/05/2024 22:38:16 09/03/19 25 08/31/2024 US, floramilton x, carot id arter y No observ ation record ed. [place] [address] [facility] [address], [place], [address], 09/05/2024 22:38:16 Result Notes None recorded. Problems Name Problem SNOMED Code Status Onset Date Resolution Date Notes Provider Name and Address Organization Details Recorded Time Pain in left arm 272680955 Active 2023 Diana Bell MA [facility], [place] - [facility] 4 12:44:18 Gastroesophage al reflux disease without esophagitis 506951483 Active 2023 Esteban Jerry MD Attn: Tiffanie luna,[address] [facility], [place], [address], [place] [facility] 4 21:09:54 Chronic rhinitis 53364530 Active 2023 Esteban Jerry MD Attn: Tiffanie luna,[address] [facility], [place], [address], [place] [facility] 4 21:09:55 Gout 20286603 Active 2023 Esteban Jerry MD Attn: Rileyin g,[address] [facility], [place], [address], [place] [facility] 4 21:09:56 Hyperlipidemia 50470390 Active 2023 Esteban Jerry MD Attn: Tiffanie luna,[address] [facility], [place], [address], [place] [facility] 4 21:10:00 Essential hypertension 24990787 Active 2023 Esteban Jerry MD Attn: Tiffanie luna,[address], [place], [address], [facility] - [facility] 4 21:01:33 Problem Notes None [...] t Available Vitals Date Recorded Body height Body mass index (BMI) Body weight Heart rate Oxygen saturation Oxygen saturation in Arterial blood by Pulse oximetry Systolic blood pressure Diastolic blood pressure Provider Name and Address Organization Details Last Updated DateTime 4 182.88 cm 46 kg/m2 349068. 53 g 61 /min 97 % 97 % 130 mm[Hg] 68 mm[Hg] Bee Wilder MA [place] - [facility] 4 11:23:44 Social History Question Answer Notes LastModified by Organizat ion Details LastModified Time Tobacco Smoking Status Never Smoker Bee Wilder MA null, [place] - [facility] 06/01/2024 10:20:40 Do You Have An Advance [...] Anxious, Or Unable To Sleep At Night)? [id number] Information not available 03/26/2024 Do You Use [...] Atrial Fibrillation N High Blood Pressure Y Depression N COPD N Blood Clots N Anxiety Disorder N Muscle, Joint, or Bone Problems N Acid Reflux (GERD) N Cancer N Stroke N High Cholesterol Y Liver Disease N Headaches N Kidney or Bladder Problems N Thyroid Problems N GI Problems N Have you had a mammogram in the last yea r? N Skin Problems N Anemia N Heart Attack ([place]) N Diabetes N Seizures/Epilepsy N Have you had a colonoscopy in the last 1 0 years? N Asthma N Allergies N Have you had a PSA blood test in the las t year? N Hepatitis N Heart Failure N Osteoporosis N Immunizations Vaccine Type Date Status Note Provider Chandana johnson and Address Organization Details Recorded Time zoster recombinant 1 completed Inder Kings[place] null, [place] [facility] 03/26/2024 11:43:19 zoster recombinant 0 completed Inder [place] [facility] 03/26/2024 11:43:19 Influenza, high-dose, quadrivalent, PF 0 completed Inder [place] [facility] 03/26/2024 11:43:19 Influenza, high-dose, quadrivalent, PF 3 completed Inder [place] [facility] 03/26/2024 11:43:19 Influenza, high-dose, quadrivalent, PF 2 completed JOSAFAT [place]imb[place] [facility] 03/26/2024 11:43:19 Influenza, high-dose, quadrivalent, PF 1 completed JOSAFAT [place] [facility] 03/26/2024 11:43:19 Influenza, adjuvanted, [...] Influenza, split virus, trivalent, preservative 4 completed Inder Kingsley MA null, [facility] 03/26/2024 11:43:19 Influenza, split virus, quadrivalent, PF 8 completed Inder Kingsley MA null, [facility] 03/26/2024 11:43:19 Past Encounters Encounter ID Performer Location Encounter Start Date Encounter Closed Date Diagnosis/Indication Diagnosis SNOMED-CT Code Diagnosis ICD10 Code Diagnosis Note [id number] Esteban Jerry MD [facility] [place] [address] [place] [address] 08/13/2024 11:04:30 08/13/2024 12:29:53 Body mass index 30+ - obesity 633955984 Z68.41 Syncope 532263086 R55 Gastroesop hageal reflux disease without esophagitis 996745034 K21.9 Gout 99202769 M10.9 Cellulitis of face 2001 L03.211 Health Concerns Section Related Observation LastModified by Organization Detai ls LastModified Time None Recorded Concern Status LastModified by Organization Details LastModified Time None Recorded Payers Encounter Date Sequence Insurance Name Policy Number Policy White Covered Member ID White Member ID Guarantor Name 08/13/2024 1 [place] Bebeto Rasheed [id number] Bebeto Wili 08/13/2024 2 [employer] (MEDICARE SUPPLEMENT) Bebeto Wili [id number] Bebeto Wili Notes Date Note Type Note Provider Name and Address Organization Details Recorded Time 08/13/2024 text/html fall no fracture s he thinks that he just slipped spent the night in the hospital for some facial cellulitis that is getting better. 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
--- OUTSIDE RECORDS SUMMARY | 2024-09-06 03:22 | XMS_ITS | Data Portability ---
Author Organization [facility] Address [address] [place] [address] Care Team Providers Care Meal Attendant Name Role Phone ESTEBAN JERRY Primary Care Provider Assessment Encounter Date Assessment Date Assessment LastModified by Organization Details LastModified Time 03/26/2024 03/26/2024 old records. X-ray left humerus ultrasound of the left upper arm. Where it is tender. Blood work. old records. Follow up 6 months [email or web address] Not available 03/29/2024 21:10:12 06/01/2024 06/01/2024 we will start losartan 50 HCTZ H 12.5 blood pressure check in a week see me in 2-3 weeks I have recommended he get CT scan of the head he has refused healthy lifestyle care instructions also discussed Not available 07/01/2024 22:44:38 06/21/2024 06/21/2024 blood pressure under better control continue current therapy he will keep his regular follow up with me [email or web address] Not available 06/30/2024 21:01:57 08/13/2024 08/13/2024 labs from hospital reviewed. Obtain event monitor echocardiogram carotid duplex he needs to use his CPAP regularly he has not been using it he will keep his regular [email or web address] Not available 08/13/2024 23:19:00 Plan of Treatment Reminders Order Date Submit Date Provider Last Modified By Organization Details Last Modified Time Details Appointments ANY 15 2024 09:15A Usha Jerry MD Not available Not available Not available Lab uric acid, serum or plasma 2023 024 [email or web address], [address] , [place], [address], 05/01/2024 11:55:07 PSA, total, serum or plasma 2023 024 [email or web address] [employer] [facility], [address], [place], [address], 05/01/2024 11:55:25 CBC w/ auto diff 2023 024 [facility] [[email or web address]] [employer] [facility], [address], [place], [address], 05/01/2024 11:55:16 lipid panel, serum [address] [place] [employer] [facility], [address], [place], [address], 05/01/2024 11:55:44 CMP, serum or plasma 2023 024 [facility] [[email or web address]] [employer] [facility], [address] , [place], [address], 05/01/2024 11:54:54 Referral None recorded. Procedures None recorded. Surgeries None recorded. Imaging XR, humerus 2023 024 [facility], [address], [place], [address], 03/26/2024 16:24:23 US, upper arm - musculosk eletal u/s left upper arm has knot. 2023 024 [facility], [address], [place], [address], 03/26/2024 17:46:37 event monitor - 30 day event monitor 2023 024 [facility] ([facility]), [address], [place], [address], 08/31/2024 17:29:07 US, echocardi ogram 2023 024 [facility] ([facility]), [address], [place], [address], 08/30/2024 17:51:04 US, duplex, carotid artery - 4 be there at 130pm. 2023 024 [facility] (Imaging), [address], [place], [address], 09/02/2024 19:36:18 Medication Orders losartan 50 mg-hydroc hlorothia zide 12.5 mg tablet 2023 024 [place] [id number], [address], [place], [place], [id number], 06/07/2024 11:08:02 Patient TargetsNo targets recorded. Patient Instructions Encounter Date Encounter Id Patient Instructions Last Modified By Organization Details Last Modified Time 06/01/2024 [id number] A healthy lifestyle: care instructions [email or web address] Not available 06/01/2024 11:34:19 Reason for Referral None Reported. Results Created Date Observation Date Name Description Value Unit Range Abnormal Flag Note LastModifiedBy Organization Detail LastModifiedTime 03/26/2003/26/2024 XR, humer us No observ ation record ed. [facility] [address], [place], [address], 03/27/2024 09:46:59 03/26/20 24 03/26/2024 US, upper arm No observ ation record ed. [facility] [address], [place], [address], 03/27/2024 09:47:00 08/05/20 24 08/05/2024 XR, humer us No observ ation record ed. [address], [place], [address], 08/05/2024 22:00:01 08/05/20 24 08/05/2024 CT, brain , w/o contr ast No observ ation record ed. [address], [place], [address], 08/06/2024 09:39:16 08/05/20 24 08/05/2024 CT, face, w/ contr ast No observ ation record ed. [address], [place], [address], 08/06/2024 09:45:08 08/05/20 24 08/05/2024 CT, cervi yasmeen spine , w/o contr ast No observ ation record ed. [address], [place], [address], 08/06/2024 10:39:35 08/13/20 24 04/28/2022 colon oscop y proce dure (PROC ) No observ ation record ed. [address] [facility], [place], [address], 08/14/2024 16:21:28 08/14/20 24 08/04/2022 exerc ise stres s test No observ ation record ed. [address] [facility], [place], [address], 08/14/2024 12:32:49 08/30/19 25 08/30/2024 US, echoethan ardio gram No observ ation record ed. [address], [place], [address], 09/05/2024 22:38:16 09/02/19 25 08/31/2024 US, ross mcmahon id arter y No observ ation record ed. [address], [place], [address], 09/05/2024 22:38:16 09/03/19 25 08/31/2024 US, samir timmons carot id arter y No observ ation record ed. [address], [place], [address], 09/05/2024 22:38:16 Result Notes None recorded. Problems Name Problem SNOMED Code Status Onset Date Resolution Date Notes Provider Name and Address Organization Details Recorded Time Pain in left arm 531785637 Active 2023 Diana eBll MA [facility], [place] - [facility] 4 12:44:18 Gastroesophage al reflux disease without esophagitis 481907119 Active 2023 Esteban Jerry MD Attn: Tiffanie luna,[address] [facility], [place], [address], [place] [facility] 4 21:09:54 Chronic rhinitis 96849017 Active 2023 Esteban Jerry MD Attn: Tiffanie luna,[address] [facility], [place], [address], [place] [facility] 4 21:09:55 Gout 46638516 Active 2023 Esteban Jerry MD Attn: Tiffanie luna,[address] [facility], [place], [address], [place] [facility] 4 21:09:56 Hyperlipidemia 80487406 Active 2023 Esteban Jerry MD Attn: Tiffanie luna,[address] [facility], [place], [address], [place] [facility] 4 21:10:00 Essential hypertension 34344158 Active 2023 Esteban Jerry MD Attn: Tiffanie luna,[address] [facility], [place], [address], [place] [facility] 4 21:01:33 Problem Notes None recorded. Procedures Surgical History None recorded. Imaging Results Imaging Date Name Status LastModified by Organization Details LastModified Time 03/26/2024 XR, humerus completed [facility] [address], [place], [address], 03/27/2024 09:46:59 03/26/2024 US, upper arm completed [facility] [address], [place], [address], 03/27/2024 09:47:00 08/05/2024 XR, humerus completed [address] [address], [place], [address], 08/05/2024 22:00:01 08/05/2024 CT, brain, w/o contrast completed [address] [address], [place], [address], 08/06/2024 09:39:16 08/05/2024 CT, face, w/ contrast completed [address] [address], [place], [address], 08/06/2024 09:45:08 08/05/2024 CT, cervical spine, w/o contrast completed [address], [address], 08/06/2024 10:39:35 04/28/2022 colonoscopy procedure (PROC) completed [address], [address], 08/14/2024 16:21:28 08/04/2022 exercise stress test completed [address], [address], 08/14/2024 12:32:49 08/30/2024 US, echocardiogram active [address], [address], 09/05/2024 22:38:16 08/31/2024 US, duplex, carotid artery active [address], [address], 09/05/2024 22:38:16 08/31/2024 US, duplex, carotid artery active [address], [address], 09/05/2024 22:38:16 Procedure Notes None recorded. Medical Equipment None Reported. [...] ENT exam we will stay on this usp per his ENT Not Available Not Available [...] height Body mass index (BMI) Body weight Oxygen saturation Oxygen saturation in Arterial blood by Pulse oximetry Heart rate Systolic blood pressure Diastolic blood pressure Provider Name and Address Organization Details Last Updated DateTime 4 182.88 cm 47.2 kg/m2 372619. 14 g 97 % 97 % 66 /min 142 mm[Hg] 86 mm[Hg] Inder Kingsley MA [place] - [facility] 4 11:55:12 Date Recorded Body height Body mass index (BMI) Body weight Heart rate Oxygen saturation Oxygen saturation in Arterial blood by Pulse oximetry Heart rate Oxygen saturation Oxygen saturation in Arterial blood by Pulse oximetry Systolic blood pressure Diastolic blood pressure Systolic blood pressure Diastolic blood pressure Provider Name and Address Organization Details Last Updated DateTime 4 182.88 cm 47.3 kg/m2 894289. 58 g 62 /min 97 % 97 % 61 /min 98 % 98 % 138 mm[Hg] 68 mm[Hg] 160 mm[Hg] 90 mm[Hg] eBe Wilder MA [facility] 4 10:25:58 Date Recorded Heart rate Oxygen saturation Oxygen saturation in Arterial blood by Pulse oximetry Systolic blood pressure Diastolic blood pressure Systolic blood pressure Diastolic blood pressure Provider Name and Address Organization Details Last Updated DateTime 4 64 /min 96 % 96 % 164 mm[Hg] 80 mm[Hg] 162 mm[Hg] 84 mm[Hg] Bee Wilder MA [facility] 4 10:20:47 Date Recorded Body height Oxygen saturation Oxygen saturation in Arterial blood by Pulse oximetry Heart rate Systolic blood pressure Diastolic blood pressure Provider Name and Address Organization Details Last Updated DateTime 4 182.88 cm 97 % 97 % 63 /min 140 mm[Hg] 72 mm[Hg] Bev Torres MA [facility] 4 10:03:43 Date Recorded Body height Body mass index (BMI) Body weight Heart rate Oxygen saturation Oxygen saturation in Arterial blood by Pulse oximetry Systolic blood pressure Diastolic blood pressure Provider Name and Address Organization Details Last Updated DateTime 4 182.88 cm 46 kg/m2 538571. 53 g 61 /min 97 % 97 % 130 mm[Hg] 68 mm[Hg] Bee Wilder MA [facility] 4 11:23:44 Social History Question Answer Notes LastModified by Organizat ion Details LastModified Time Tobacco Smoking Status Never Smoker Bee Wilder MA [facility], [place] [facility] 06/01/2024 10:20:40 Do You Have An [...] Anxious, Or Unable To Sleep At Night)? [id number] Information not available 03/26/2024 Do You Use [...] Response Coronary Artery Disease N Other N High Blood Pressure Y Atrial Fibrillation N Kidney or Bladder Problems N Thyroid Problems N GI Problems N Depression N COPD N Blood Clots N Have you had a mammogram in the last yea r? N Skin Problems N Anemia N Heart Attack (TN) N Anxiety Disorder N Diabetes N Muscle, Joint, or Bone Problems N [...] SNOMED-CT Code Diagnosis ICD10 Code Diagnosis Note [id number] Esteban Jerry MD [facility] [place] [address] [place] [address] 03/26/2024 11:24:20 03/26/2024 12:48:19 Pain in left arm 032999024 M79.602 Hyperlipidemia 08767303 E78.5 Screening for malignant neoplasm of prostate 314535933 Z12.5 Long-term drug therapy 947398590 Z79.899 Gout 99514729 M10.9 Chronic rhinitis 6444068 6 J31.0 Gastroesop hageal reflux disease without esophagitis 169691198 K21.9 [id number] Esteban Jerry MD [facility] (Adult Med) [address] [place] [address] 06/01/2024 09:55:57 06/01/2024 10:45:35 Morbid obesity 513637450 E66.01 Essential hypertension 19800912 I10 [id number] Diana Bell MA [facility] [employer] [facility] [place] [address] [place] [address] 06/07/2024 09:56:45 06/07/2024 10:41:35 Essential hypertension 97110419 I10 [id number] Esteban Jerry MD [facility] [employer] [facility] [place] [address] [address] 06/21/2024 09:53:14 06/21/2024 10:15:36 Essential hypertension 90848824 I10 [id number] Esteban Jerry MD [facility] [employer] [facility] [place] [address] [address] 08/13/2024 11:04:30 08/13/2024 12:29:53 Body mass index 30+ - obesity 490470893 Z68.41 Syncope 766137679 R55 Gastroesop hageal reflux disease without esophagitis 689422525 K21.9 Gout 43433347 M10.9 Cellulitis of face 2001 L03.211 Health Concerns Section Related Observation LastModified by Organization Detai ls LastModified Time None Recorded Concern Status LastModified by Organization Details LastModified Time None Recorded Advance Directives Directive Y: Payers Encounter Date Sequence Insurance Name Policy Number Policy White Covered Member ID White Member ID Guarantor Name 03/26/2024 1 [place] Bebeto Rasheed [id number] Bebeto Rasheed 03/26/2024 2 [employer] (MEDICARE SUPPLEMENT) Bebeto Rasheed [id number] Bebeto Rasheed 06/01/2024 1 [place] Bebeto Rasheed [id number] Bebeto Rasheed 06/01/2024 2 [employer] (MEDICARE SUPPLEMENT) Bebeto Rasheed [id number] Bebeto Rasheed 06/07/2024 1 [place] Bebeto Rasheed [id number] Bebeto Rasheed 06/07/2024 2 [employer] (MEDICARE SUPPLEMENT) Bebeto Rasheed [id number] Bebeto Rasheed 06/21/2024 1 [place] Bebeto Rasheed [id number] Bebeto Rasheed 06/21/2024 2 [employer] (MEDICARE SUPPLEMENT) Bebeto Rasheed [id number] Bebeto Rasheed 08/13/2024 1 [place] Bebeto Rasheed [id number] Bebeto Rasheed 08/13/2024 2 [employer] (MEDICARE SUPPLEMENT) Bebeto Rasheed [id number] Bebeto Rasheed Notes Date Note Type Note Provider Name and Address Organization Details Recorded Time 03/26/2024 text/html 68-year-old gout . Rhinitis. GERD. Hyperlipidemia. Obesity. Pain in his left upper arm and a not ever since he had a vaccination several months ago Esteban Jerry MD Attn: Accounting,[address], [place], [address], [facility] 03/29/2024 21:11:05 06/01/2024 text/html Then a dull headache and was found to be hypertensive Esteban Jerry MD Attn: Accounting,[address], [place], [address], [facility] [place] 07/01/2024 22:44:54 06/21/2024 text/html tolerating the medication short interval follow up on blood pressure Esteban Jerry MD Attn: Accounting,[address], [place], [address], [facility] 06/30/2024 21:02:15 08/13/2024 text/html fall no fracture s he [...] sure Esteban Jerry MD Attn: Accounting[address], [place], [address], [facility] [place] 08/13/2024 23:19:40
--- OUTSIDE RECORDS SUMMARY | 2024-09-06 03:23 | XMS_ITS | CONTINUITY OF CARE DOCUMENT ---
Author Name shirley watson Address Unknown Organization [facility] Address [address] [place] [address] Phone [phone] Care Team Providers Care Local Government Legislator Name Role Phone Nakul Moeller MD Unavailable [phone] INSURANCE PROVIDERS Payer name Policy type / Coverage type [employer] party ID [id number] PAY [id number]
--- OUTSIDE RECORDS SUMMARY | 2024-09-06 03:23 | XMS_ITS | Data Portability ---
Author Organization [place] [employer], Main Office Address [address] [place] [address] Assessment Encounter Date Assessment Date Assessment LastModified by Organization Details LastModified Time 11/17/2022 11/17/2022 Assessment: Rhinitis Moderate OSAHS, AHI = 20 PLMD Plan: The following were reviewed and explained to the patient: primary care/referral note [facility] split night sleep study 08/05/22 AHI = 20, supine AHI = 37, REM AHI = 96, PLMI = 64, [employer] large Vitera full face mask @ 4-8 cmH2O Elevation in periodic limb movement index may be contributed by sertraline. Non-pharmacologi c therapy options for periodic limb movement disorder include avoidance of aggravating drugs and substances, mental alerting activities, short daily hemodialysis for patients in renal failure, exercise, leg massage, stretching calf muscles, use of a weighted blanket and applied heat. Patient will cut down on alcohol consumption and caffeine intake. We will check BUN, Creatinine, Vitamin E, Vitamin B12, RBC folate, Iron, TIBC, Ferritin, ESR, Magnesium, Hgb and Hct levels. PAP compliance downloaded and interpreted x 20 minutes. Data reviewed and explained to the patient. Average apnea/hypopnea index (AHI) is 0.6. Patient used PAP > 4 hours 63% of the time. PAP is set at 4-8 cmH2O. PAP will be reset at 7-8 cmH2O. Oxygen supplementation: none Patient is benefiting from PAP therapy. Encouraged patient to maintain PAP use more than 70% of the time. Statement of PAP use and benefits will be sent to the home care store. Educated the patient on problems and solutions associated with positive airway pressure (PAP) use. Difficulty tolerating pressure, mask leaks, intolerance of interface, nasal congestion, claustrophobic response, dry mouth, and unintentional mask removal during sleep were covered. Patient experiences nasal congestion. Patient will use nasal saline spray before starting PAP, use heated PAP humidifier, clean/air dry humidifier reservoir daily, use nasal steroid spray, use ipratropium bromide nasal spray if rhinitis/rhinorr hea is present or obtain an oronasal/oral interface. Provided the patient with a list of local home care stores where positive airway pressure (PAP) units, accouterments, and services are available. Home care store selection is based on patient's insurance carrier. Patient will setup an appointment with [facility] for supplies and pressure adjustments. A major predictor of success with use of PAP is follow-up with both the respiratory supplier and the treating physician. The respiratory supplier optimally will follow-up within two weeks after starting use while the treating physician optimally will follow-up within 90 days after starting therapy to assess adherence and effectiveness of treatment. The download results can show the treating physician information about adherence to treatment, residual AHI while on treatment and presence of large mask leakage. This information is especially helpful if the patient has residual sleepiness despite treatment. General information on sleep disordered breathing, evaluation of sleep disordered breathing, treatment with PAP therapy, and living with PAP therapy were covered. We discussed with the patient the impact of weight on: Sleep disordered breathing Hyperlipidemia We discussed with the patient the benefit of PAP therapy on: Sleep disordered breathing Anxiety Rhinitis Educated the patient on sleep hygiene measures. Relaxing rituals to rest easy, understanding foods with positive and negative impact on sleep, creating a peaceful sleep environment, timing of exercise, using herbal sleep aids, and practicing sleep-friendly meditation were covered. To determine how much sleep is needed, the patient will assess where he falls on the spectrum, examine what lifestyle factors such as work schedules and stress are affecting the quality and quantity of sleep. In general, adults need 7-9 hours of sleep. Educated the patient regarding foods that promote sleep. These include but are not limited to cherries, bananas, toast, oatmeal, and warm milk. Educated the patient regarding foods and drinks to avoid before bedtime. These include but are not limited to aged cheese, chocolate, spicy foods, tomato-based sauces, soy, ginseng tea and processed meat. Advocated influenza vaccination annually and pneumonia vaccination SAVANNAH. Advocated weight loss through diet and exercise. Patient's ideal body weight according to height and gender is up to 195 lbs. Encouraged patient to adjust caloric intake to maintain/achieve ideal body weight, emphasizing on fruits, vegetables, whole grains, and fat-free or low-fat products. These include lean meats, poultry, fish, beans, eggs, and nuts and foods that are low in saturated fats, trans-fats, cholesterol, salt (sodium), and glycemic index. Stressed the importance of regular exercise up to the patient's capacity limits. In this case, we recommend 20 min daily walking, 2 days a week of resistance training. Patient to monitor BP daily and bring records to PCP for further management. Follow-up: 3 weeks Not available 11/17/2022 10:16:04 12/14/2022 12/14/2022 Assessment: Rhinitis Moderate OSAHS, AHI = 20 PLMD Plan: The following were reviewed and explained to the patient: [facility] split night sleep study 08/05/22 AHI = 20, supine AHI = 37, REM AHI = 96, PLMI = 64. ESR 11/26/22 29 mm/hr Hgb 11/26/22 12.4 gm% Hct 11/26/22 37.5% B12 11/26/22 395 pg/mL Elevation in periodic limb movement index may be contributed by sertraline. Non-pharmacologi c therapy options for periodic limb movement disorder include avoidance of aggravating drugs and substances, mental alerting activities, short daily hemodialysis for patients in renal failure, exercise, leg massage, stretching calf muscles, use of a weighted blanket and applied heat. Patient will cut down on alcohol consumption and caffeine intake. BUN, Creatinine, Vitamin E, RBC folate, Iron, TIBC, Ferritin, Magnesium are within normal limits. Patient will take B12 1 mg daily to keep the levels > 400 pg/ml. We will hold off on dopaminergic therapy for now. PAP compliance downloaded and interpreted x 20 minutes. Data reviewed and explained to the patient. Average apnea/hypopnea index (AHI) is 1.1. Patient used PAP > 4 hours 38% of the time. PAP is set at 7-8 cmH2O. PAP will be reset at 5-8 cmH2O. Oxygen supplementation: none Patient is benefiting from PAP therapy. Encouraged patient to maintain PAP use more than 70% of the time. Statement of PAP use and benefits will be sent to the home care store. Educated the patient on problems and solutions associated with positive airway pressure (PAP) use. Difficulty tolerating pressure, mask leaks, intolerance of interface, nasal congestion, claustrophobic response, dry mouth, and unintentional mask removal during sleep were covered. Patient experiences nasal congestion. Patient will use nasal saline spray before starting PAP, use heated PAP humidifier, clean/air dry humidifier reservoir daily, use nasal steroid spray, use ipratropium bromide nasal spray if rhinitis/rhinorr hea is present or obtain an oronasal/oral interface. Provided the patient with a list of local home care stores where positive airway pressure (PAP) units, accouterments, and services are available. Home care store selection is based on patient's insurance carrier. Patient will setup an appointment with [facility] for supplies and pressure adjustments. A major predictor of success with use of PAP is follow-up with both the respiratory supplier and the treating physician. The respiratory supplier optimally will follow-up within two weeks after starting use while the treating physician optimally will follow-up within 90 days after starting therapy to assess adherence and effectiveness of treatment. The download results can show the treating physician information about adherence to treatment, residual AHI while on treatment and presence of large mask leakage. This information is especially helpful if the patient has residual sleepiness despite treatment. General information on sleep disordered breathing, evaluation of sleep disordered breathing, treatment with PAP therapy, and living with PAP therapy were covered. We discussed with the patient the impact of weight on: Sleep disordered breathing Hyperlipidemia We discussed with the patient the benefit of PAP therapy on: Sleep disordered breathing Anxiety Rhinitis Educated the patient on sleep hygiene measures. Relaxing rituals to rest easy, understanding foods with positive and negative impact on sleep, creating a peaceful sleep environment, timing of exercise, using herbal sleep aids, and practicing sleep-friendly meditation were covered. To determine how much sleep is needed, the patient will assess where he falls on the spectrum, examine what lifestyle factors such as work schedules and stress are affecting the quality and quantity of sleep. In general, adults need 7-9 hours of sleep. Educated the patient regarding foods that promote sleep. These include but are not limited to cherries, bananas, toast, oatmeal, and warm milk. Educated the patient regarding foods and drinks to avoid before bedtime. These include but are not limited to aged cheese, chocolate, spicy foods, tomato-based sauces, soy, ginseng tea and processed meat. Advocated influenza vaccination annually and pneumonia vaccination SAVANNAH. Advocated weight loss through diet and exercise. Patient's ideal body weight according to height and gender is up to 195 lbs. Encouraged patient to adjust caloric intake to maintain/achieve ideal body weight, emphasizing on fruits, vegetables, whole grains, and fat-free or low-fat products. These include lean meats, poultry, fish, beans, eggs, and nuts and foods that are low in saturated fats, trans-fats, cholesterol, salt (sodium), and glycemic index. Stressed the importance of regular exercise up to the patient's capacity limits. In this case, we recommend 20 min daily walking, 2 days a week of resistance training. Patient to monitor BP daily and bring records to PCP for further management. Follow-up: 3 months, February 2023 Not available 12/14/2022 10:04:54 03/15/2023 03/15/2023 Assessment: Rhinitis Moderate OSAHS, AHI = 20 PLMD Plan: The following were reviewed and explained to the patient: [facility] split night sleep study 08/05/22 AHI = 20, supine AHI = 37, REM AHI = 96, PLMI = 64. ESR 11/26/22 29 mm/hr Hgb 11/26/22 12.4 gm% Hgb 02/18/23 13.2 gm% Hct 11/26/22 37.5% Hct 02/18/23 39.6% B12 11/26/22 395 pg/mL B12 02/18/23 501 pg/mL Elevation in periodic limb movement index may be contributed by sertraline. Non-pharmacologi c therapy options for periodic limb movement disorder include avoidance of aggravating drugs and substances, mental alerting activities, short daily hemodialysis for patients in renal failure, exercise, leg massage, stretching calf muscles, use of a weighted blanket and applied heat. Patient will cut down on alcohol consumption and caffeine intake. BUN, Creatinine, Vitamin E, RBC folate, Iron, TIBC, Ferritin, Magnesium are within normal limits. Patient will continue B12 1 mg but decrease from daily to 3 x a week to keep the levels > 400 pg/ml. We will hold off on dopaminergic therapy for now. PAP compliance downloaded and interpreted x 20 minutes. Data reviewed and explained to the patient. Average apnea/hypopnea index (AHI) is 1.3. Patient used PAP > 4 hours 38% of the time. PAP is set at 5-8 cmH2O. PAP will remain at 5-8 cmH2O. Oxygen supplementation: none Patient is benefiting from PAP therapy. Encouraged patient to maintain PAP use more than 70% of the time. Statement of PAP use and benefits will be sent to the home care store. Educated the patient on problems and solutions associated with positive airway pressure (PAP) use. Difficulty tolerating pressure, mask leaks, intolerance of interface, nasal congestion, claustrophobic response, dry mouth, and unintentional mask removal during sleep were covered. Patient experiences nasal congestion. Patient will use nasal saline spray before starting PAP, use heated PAP humidifier, clean/air dry humidifier reservoir daily, use nasal steroid spray, use ipratropium bromide nasal spray if rhinitis/rhinorr hea is present or obtain an oronasal/oral interface. Provided the patient with a list of local home care stores where positive airway pressure (PAP) units, accouterments, and services are available. Home care store selection is based on patient's insurance carrier. Patient will setup an appointment with [facility] for supplies and pressure adjustments. A major predictor of success with use of PAP is follow-up with both the respiratory supplier and the treating physician. The respiratory supplier optimally will follow-up within two weeks after starting use while the treating physician optimally will follow-up within 90 days after starting therapy to assess adherence and effectiveness of treatment. The download results can show the treating physician information about adherence to treatment, residual AHI while on treatment and presence of large mask leakage. This information is especially helpful if the patient has residual sleepiness despite treatment. General information on sleep disordered breathing, evaluation of sleep disordered breathing, treatment with PAP therapy, and living with PAP therapy were covered. We discussed with the patient the impact of weight on: Sleep disordered breathing Hyperlipidemia We discussed with the patient the benefit of PAP therapy on: Sleep disordered breathing Anxiety Rhinitis Educated the patient on sleep hygiene measures. Relaxing rituals to rest easy, understanding foods with positive and negative impact on sleep, creating a peaceful sleep environment, timing of exercise, using herbal sleep aids, and practicing sleep-friendly meditation were covered. To determine how much sleep is needed, the patient will assess where he falls on the spectrum, examine what lifestyle factors such as work schedules and stress are affecting the quality and quantity of sleep. In general, adults need 7-9 hours of sleep. Educated the patient regarding foods that promote sleep. These include but are not limited to cherries, bananas, toast, oatmeal, and warm milk. Educated the patient regarding foods and drinks to avoid before bedtime. These include but are not limited to aged cheese, chocolate, spicy foods, tomato-based sauces, soy, ginseng tea and processed meat. Advocated influenza vaccination annually and pneumonia vaccination SAVANNAH. Advocated weight loss through diet and exercise. Patient's ideal body weight according to height and gender is up to 195 lbs. Encouraged patient to adjust caloric intake to maintain/achieve ideal body weight, emphasizing on fruits, vegetables, whole grains, and fat-free or low-fat products. These include lean meats, poultry, fish, beans, eggs, and nuts and foods that are low in saturated fats, trans-fats, cholesterol, salt (sodium), and glycemic index. Stressed the importance of regular exercise up to the patient's capacity limits. In this case, we recommend 20 min daily walking, 2 days a week of resistance training. Patient to monitor BP daily and bring records to PCP for further management. Follow-up: 6 months, August 2023 Not available 03/15/2023 10:56:36 03/17/2023 03/17/2023 Abdominal bloating worse after CPAP he needs to check in with his sleep doctor 1st if no good explanation for help there will talk to GI other medical problems appear to be stable follow-up with me in 4 months [email or web address] Not available 03/18/2023 20:12:36 07/28/2023 07/28/2023 Will continue current therapy will follow-up in 4 months [email or web address] Not available 07/29/2023 13:43:16 Plan of Treatment Reminders Order Date Submit Date Provider Last Modified By Organization Details Last Modified Time Details Appointments None recorded. Lab iron + TIBC + ferritin, serum 2022 023 [employer] [facility], [address], [place], [address], 3 11:59:55 folate, RBC 2022 023 [employer] [facility], [address], [address], [place], [address], 3 11:59:59 vitamin B12, serum 2022 023 [employer] [facility], [address], [place], [place], [address], 3 11:59:59 ESR (erythrocyt e sedimentati on rate), blood 2022 023 [email or web address] [employer] [facility], [address], [place], [place], [address], 3 15:49:21 hemoglobin + hematocrit, blood 2022 023 [employer] [facility], [address], [place], [place], [address], 3 11:59:58 bun (blood urea nitrogen), serum or plasma 2022 023 [employer] [facility], [address], [place], [place], [address], 3 11:59:55 creatinine, serum or plasma 2022 023 [employer] [facility], [address], [place], [place], [address], 3 11:59:56 magnesium, serum or plasma 2022 023 [facility] [facility], [address], [place], [place], [address], 3 11:59:57 vitamin E, serum 2022 023 [employer] [facility], [address], [place], [place], [address], 3 12:00:00 vitamin B12, serum 2022 023 [employer] [facility], [address], [place], [place], [address], 3 05:39:36 hemoglobin + hematocrit, blood 2022 023 [employer] [facility], [address], [place], [place], [address], 3 05:39:34 vitamin B12, serum 2022 023 [email or web address] [employer] [facility], [address], [place], [place], [address], 4 14:19:43 hemoglobin + hematocrit, blood 2022 023 [email or web address] [employer] [facility], [address], [place], [place], [address], 4 14:19:43 Referral None recorded. Procedures None recorded. Surgeries None recorded. Imaging None recorded. Medication Orders cyanocobala min (vit B-12) 1,000 mcg tablet 2022 023 [id number], [address], [place], [id number], 3 10:05:28 cyanocobala min (vit B-12) 1,000 mcg tablet 2022 023 [id number], [address] [facility], [place], [place], [id number], 3 11:00:10 montelukast 10 mg tablet 2022 023 [email or web address] [facility]23066, [address], [place], [id number], 3 11:17:08 Patient TargetsNo targets recorded. Patient InstructionsNo instructions recorded. Reason for Referral None Reported. Results Created Date Observation Date Name Description Value Unit Range Abnormal Flag Note LastModifiedBy Organization Detail LastModifiedTime 11/27/1912/02/2022 IRON, TIBC AND JERSON TIN PANEL iron, total 88 mcg/d L 50-180 normal Not Available [address], [address], 12/02/2022 11:59:55 11/27/19 23 12/02/2022 IRON, TIBC AND JERSON TIN PANEL iron binding capacity 333 mcg/d L_(ca lc) 250-42 5 normal Not Available [address], [address], 12/02/2022 11:59:55 11/27/19 23 12/02/2022 IRON, TIBC AND JERSON TIN PANEL % saturation 26 %_(ca lc) 20-48 normal Not Available [address], [address], 12/02/2022 11:59:55 11/27/19 23 12/02/2022 IRON, TIBC AND JERSON TIN PANEL ferritin 162 NG/mL 24-380 normal Not Available [address], [address], 12/02/2022 11:59:55 11/27/19 23 12/02/2022 UREA NITRO GEN (BUN) urea nitrogen (BUN) 24 mg/dL 7-25 normal Not Available [address], [address], 12/02/2022 11:59:55 11/27/19 23 12/02/2022 CREAT ININE creatinine 0.74 mg/dL 0.70-1 .35 normal Not Available [address], [address], 12/02/2022 11:59:56 11/27/19 23 12/02/2022 CREAT ININE eGFR 99 mL/mi n/1.7 3m2 > or = 60 normal The eGFR is based on the CKD-E PI 2020 equat ion. To calcu late the new eGFR from a previ ous Creat inmariana or Parker daniel, go to [email or web address] :[email or web address] [email or web address] kdoqi /[email or web address] 5Fcal culat or Not Available [employer] [address], [address], 12/02/2022 11:59:56 11/27/19 23 12/02/2022 MAGNE SIUM magnesium 1.9 mg/dL 1.5-2. 5 normal Not Available [employer] [address], [address], 12/02/2022 11:59:57 11/27/19 23 12/02/2022 SED RATE BY MODIF IED WESTCristian GALINDOREN sed rate by modified westtoriren 29 mm/h < or = 20 high Not Available [address], [address], 12/02/2022 11:59:58 11/27/19 23 12/02/2022 HEMOG LOBIN + HEMAT OCRIT hemoglobin 12.4 g/dL 13.2-1 7.1 low Not Available [employer] [address], [address], 12/02/2022 11:59:58 11/27/19 23 12/02/2022 HEMOG LOBIN + HEMAT OCRIT hematocrit 37.5 % 38.5-5 0.0 low Not Available [employer] [address], [address], 12/02/2022 11:59:58 11/27/19 23 12/02/2022 FOLAT E, RBC folate, RBC 736 NG/mL _RBC >280 normal Not Available [employer] [address], [address], 12/02/2022 11:59:59 11/27/19 23 12/02/2022 VITAM IN B12 vitamin B12 395 pg/mL 200-11 00 normal Pleas e Note: Altho ugh the refer ence range for vitam in B12 is 200-1 100 pg/mL , it has been repor sangita that betwe en 5 and 10% of patie nts with value s betwe en 200 and 400 pg/mL may exper ience neuro psych iatri c and hemat ologi c abnor malit ies due to occul t B12 defic iency ; less than 1% of patie nts with value s above 400 pg/mL will have sympt oms. Not Available [employer] [address] [address] [place], [address], 12/02/2022 11:59:59 11/27/19 23 12/02/2022 VITAM IN E (TOCO PHERO L) alpha-tocoph raheel 15.8 mg/L Refer ence Range 5.7-1 9.9 mg/L Level s of alpha -toco phero l <5 mg/L are consi stent with Vitam in E defic iency in adult s. Vitam in suppl ement ation withi n 24 hours prior to blood draw may affec t the accur acy of resul ts. See Note 1 Not Available [employer] [facility] [address] [address], [place], [address], 12/02/2022 12:00:00 11/27/19 23 12/02/2022 VITAM IN E (TOCO PHERO L) aegl-dygsf-z ocopherol 2.5 mg/L <4.4 See Note 1 Note 1 This test was devel oped and its cheryl tical perfo rmanc e halima cteri stics have been deter mined by [employer] [facility]. It has not been clear ed or appro mariam by the FDA. This assay has been valid ated pursu ant to the CLIA regul ation s and is used for clini yasmeen purpo ses. Not Available [employer] [facility] [address] [place], [address], 12/02/2022 12:00:00 02/19/20 23 02/19/2023 HEMOG LOBIN + HEMAT OCRIT hemoglobin 13.1 g/dL 13.2-1 7.1 low Not Available [address] [place], [address], 02/19/2023 05:39:34 02/19/2002/19/2023 HEMOG LOBIN + HEMAT OCRIT hematocrit 39.6 % 38.5-5 0.0 normal Not Available [address] [address] [place], [address], 02/19/2023 05:39:34 02/19/2002/19/2023 VITAM IN B12 vitamin B12 501 pg/mL 200-11 00 normal Not Available [address], [address], 02/19/2023 05:39:36 03/27/20 24 03/26/2024 XR, humer us No observ ation record ed. [email or web address] [facility] [address], [place], [address], 05/10/2024 14:54:41 03/27/20 24 03/26/2024 US, upper extre mity No observ ation record ed. [email or web address] [facility] [address], [place], [address], 05/10/2024 14:55:44 Result Notes None recorded. Problems Name Problem SNOMED Code Status Onset Date Resolution Date Notes Provider Name and Address Organization Details Recorded Time Periodic limb movement disorder 432856239 Active 2022 Devante Ocasio MD [address], [place], [address] , [employer] 09:55:43 Obstructive sleep apnea syndrome 02183988 Active 2022 Devante Ocasio MD [address], [place], [address] , [place] [employer] 3 10:16:08 Cobalamin deficiency 439723329 Active 2022 Devante Ocasio MD [address] [facility], [facility] [address], [place], [address] , [facility] [employer] [facility] [employer] [facility] 3 09:53:11 Anxiety state 370771168 Active Not Available [facility] 3 03:03:03 Dyslipidemia 345011009 Active Not Available [facility] 3 03:03:04 Cervical arthritis 336970426 Active 2020 Not Available [facility] 3 03:03:04 Premature ejaculation 40884690 Active Not Available [facility] 3 03:03:04 Hyperglycemia 06824779 Active 2021 Not Available [facility] 3 03:03:04 COVID-19 737029353 Active 2022 Not Available [facility] 3 03:03:04 Gout 00230796 Active Not Available [facility] 3 03:03:05 Wheezing 04912531 Active 2022 Syl Suarez RN [facility] [place] [employer] [facility] [employer] [facility] 3 17:41:41 Notes:Medical History: Anxie ty COVID infection 07/2021 Rhinitis with postnasal drip Bruxism Obesity with mod OSAHS, AHI = 20, 08/05/22, on autoCPAP c/o IVRC Hyperlipidemia B12 deficiency Anemia PLMD Gout Procedure History: T&A 195 Forehead lipoma excision 2012 Right knee surgery 2018 Colonoscopy 2021 Problem Notes None recorded. Procedures Surgical History Date Name Laterality Status Provider Name and Address Organization Details Recorded Time 6 Knee arthroscopy/s urgery completed Not Available [facility] 10/27/2022 02:55:59 6 repair of meniscus completed Not Available [facility] 10/27/2022 02:55:59 Imaging Results Imaging Date Name Status LastModified by Organiz ation Details LastModified Time 03/26/2024 XR, humerus completed [id number] [place] [facility] 2022 Agus Mendieta [facility] [address], [place], [address], 05/10/2024 14:54:41 03/26/2024 US, upper extremity completed [facility] [place] [facility] 2022 [address], [place], [address], 05/10/2024 14:55:44 Procedure Notes None recorded. Medical Equipment None Reported. Allergies No known drug allergies Medications Name Sig Start Date Stop Date Status Note LastModified by Organization Details LastModified Time silver sulfadiazin e 1 % topical cream 02/27 completed Not Available Not Available Not Available doxycycline hyclate 100 mg capsule Take 1 capsule twice a day by oral route for 10 days. active Not Available Not Available No t Available Ceftin 500 mg tablet Take 1 tablet twice a day by oral route for 21 days. 08/21 completed Not Available Not Available Not Available clindamycin HCl 300 mg capsule 09/06 completed Not Available Not Available Not Available tizanidine 4 mg tablet Take 1 tablet every day by oral route at bedtime. active Not Available Not Available No t Available prednisone 20 mg tablet TAKE 2 TABLETS BY MOUTH EVERY DAY FOR 5 DAYS active Not Available Not Available No t Available Zithromax Z-Skyler 250 mg tablet Take as directed 04/26 completed Not Available Not Available Not Available cyanocobala min (vit B-12) 1,000 mcg tablet TAKE ONE TABLET BY MOUTH THREE DAYS A WEEK active Not Available Not Available No t Available Tamiflu 75 mg capsule Take 1 capsule every day by oral route for 10 days. active Not Available Not Available No t Available aspirin 81 mg tablet,hebert yed release Take 1 tablet every day by oral route. 10/04 completed Not Available Not Available Not Available sildenafil 100 mg tablet TAKE 1 TABLET 30 MINUTES BEFORE INTERCOUR SE NO MORE THEN 1 IN 24 HOURS 12/11 completed Not Available Not Available Not Available meloxicam 7.5 mg tablet 10/26 completed Not Available Not Available Not Available meclizine 25 mg tablet TAKE 2 TABLETS BY MOUTH TWICE DAILY NEEDED FOR DIZZINESS 11/17 completed Not Available Not Available Not Available hydrocodone 7.5 mg-acetamin ophen 325 mg tablet 10/26 completed Not Available Not Available Not Available cephalexin 500 mg capsule 08/09 completed Not Available Not Available Not Available pantoprazol e 40 mg tablet,hebert yed release TAKE 1 TABLET BY MOUTH EVERY MORNING 07/13 completed Not Available Not Available Not Available simvastatin 20 mg tablet TAKE 1 TABLET BY MOUTH DAILY active Not Available Not Available No t Available montelukast 10 mg tablet TAKE 1 TABLET BY MOUTH DAILY active Not Available Not Available No t Available codeine 10 mg-guaifene sin 100 mg/5 mL oral liquid 04/26 completed Not Available Not Available Not Available allopurinol 300 mg tablet TAKE 1 TABLET BY MOUTH DAILY WITH WATER active Not Available Not Available No t Available methylpredn isolone 4 mg tablets in a dose pack FOLLOW PACKAGE DIRECTION S 11/17 completed Not Available Not Available Not Available albuterol sulfate HFA 90 mcg/actuati on aerosol inhaler INHALE 2 PUFFS BY MOUTH EVERY 4 HOURS NEEDED active Not Available Not Available No t Available fluocinonid e 0.05 % topical cream apply to rash daily as needed active Not Available Not Available No t Available fluticasone propionate 50 mcg/actuati on nasal spray,suspe nsion SHAKE LIQUID AND USE 1 SPRAY IN EACH NOSTRIL EVERY DAY active Not Available Not Available No t Available sertraline 50 mg tablet TAKE 1 TABLET BY MOUTH EVERY DAY active Not Available Not Available No t Available amoxicillin 875 mg-potassiu m clavulanate 125 mg tablet Take 1 tablet twice a day by oral route for 10 days. 09/06 completed Not Available Not Available Not Available Viibryd 40 mg tablet TAKE ONE TABLET DAILY 08/26 completed Not Available Not Available Not Available One-A-Day Men's 50 Plus(vit K) 10/04 completed Not Available Not Available Not Available Fish Oil 1,000 mg (120 mg-180 mg) capsule Take 2 capsules every day by oral route. 10/04 completed Not Available Not Available Not Available Shingrix (PF) 50 mcg/0.5 mL intramuscul ar suspension, kit ADM 0.5ML IM UTD 09/04 completed Not Available Not Available Not Available Fluzone High-Dose Quad 2020- (PF) 240 mcg/0.7 mL IM syringe ADM 0.7ML IM UTD 09/04 completed Not Available Not Available Not Available BinaxNOW COVID-19 Ag Self Test kit TEST DIRECTED TODAY 11/17 completed Not Available Not Available Not Available Paxlovid 300 mg (150 mg x 2)-100 mg tablets in a dose pack Take 3 tablets twice a day by oral route for 5 days. 11/17 completed Not Available Not Available Not Available Vitals Date Recorded Body height Body mass index (BMI) Body weight Body temperature Heart rate Oxygen saturation Oxygen saturation in Arterial blood by Pulse oximetry Systolic blood pressure Diastolic blood pressure Provider Name and Address Organization Details Last Updated DateTime 3 182.88 cm 46.7 kg/m2 053966. 78 g 98.4 [degF] 61 /min 96 % 96 % 140 mm[Hg] 82 mm[Hg] Libby Kolb MA [place] [employer] [facility] [employer] 3 09:52:32 Date Recorded Heart rate Respiratory rate Provider N lesli and Address Organization Details Last Updated DateTime 11/17/2022 61 /min 15 /min Devante Ocasio MD [address], [place], [address] [employer] [facility] [employer] 11/17/2022 10:08:18 Date Recorded Body height Body mass index (BMI) Body weight Body temperature Heart rate Oxygen saturation Oxygen saturation in Arterial blood by Pulse oximetry Systolic blood pressure Diastolic blood pressure Provider Name and Address Organization Details Last Updated DateTime 3 182.88 cm 47.5 kg/m2 369882. 33 g 98.1 [degF] 65 /min 97 % 97 % 140 mm[Hg] 82 mm[Hg] Libby Kolb MA [place] [employer] [facility] [employer] 3 09:45:57 Date Recorded Heart rate Respiratory rate Provider N lesli and Address Organization Details Last Updated DateTime 12/14/2022 65 /min 14 /min Devante Ocasio MD [address], [address], [place], [address] [employer] [facility] [employer] [facility] 12/14/2022 10:12:58 Date Recorded Body height Body mass index (BMI) Body weight Body temperature Oxygen saturation Oxygen saturation in Arterial blood by Pulse oximetry Systolic blood pressure Diastolic blood pressure Provider Name and Address Organization Details Last Updated DateTime 3 182.88 cm 47.6 kg/m2 336298. 92 g 98.5 [degF] 97 % 97 % 136 mm[Hg] 84 mm[Hg] Libby Kolb MA [facility] [employer] [facility] 3 10:46:31 Date Recorded Heart rate Respiratory rate Heart rate Provider Name and Address Organization Details Last Updated DateTime 03/15/2023 63 /min 13 /min 63 /min Devante Ocasio MD [address] [facility], [facility] [address], [place], [address], [facility] [employer] [facility] 03/15/2023 11:02:47 Date Recorded Body height Body mass index (BMI) Body weight Body temperature Heart rate Oxygen saturation Oxygen saturation in Arterial blood by Pulse oximetry Systolic blood pressure Diastolic blood pressure Provider Name and Address Organization Details Last Updated DateTime 182.88 cm 47.7 kg/m2 303624. 51 g 97.8 [degF] 72 /min 98 % 98 % 128 mm[Hg] 80 mm[Hg] Isa Pelayo RN [facility] [employer] [facility] 3 10:09:17 Date Recorded Body height Body mass index (BMI) Body weight Body temperature Heart rate Systolic blood pressure Diastolic blood pressure Provider Name and Address Organization Details Last Updated DateTime 182.88 cm 46.7 kg/m2 784542. 78 g 97.8 [degF] 78 /min 128 mm[Hg] 82 mm[Hg] DAGO Bahena [facility] [employer] [facility] 3 10:31:19 Social History Question Answer Notes LastModified by Organization Details LastModified Time Tobacco Smoking Status Never Smoker DAGO Treadwell null, [facility] [employer] [facility] 03/17/2023 10:04:16 Do You Have An Advance Directive? Yes [id number] Information not available 10/27/2022 What Is Your Level Of Alcohol Consumption? Moderate Patient Reported About 7 Beers Per Week. [id number] Information not available 10/27/2022 Are You Blind Or Do You Have Difficulty Seeing? No Information not available 03/17/2023 What Is Your Level Of Caffeine Consumption? Occasional [id number] Information not available 10/27/2022 How Much Tobacco Do You Chew? None [id number] Information not available 10/27/2022 In The 14 Days Before Symptom Onset, Have You Had Close Contact With A Laboratory-conf irmed COVID-19 While That Case Was Ill? No Information not available 03/17/2023 In The 14 Days Before Symptom Onset, Have You Had Close Contact With A Person Who Is Under Investigation For COVID-19 While That Person Was Ill? No Information not available 03/17/2023 Are You Deaf Or Do You Have Serious Difficulty Hearing? No Information not available 03/17/2023 What Type Of Diet Are You Following? REGULAR [id number] Information not available 10/27/2022 Which Illicit Or Recreational Drugs Have You Used? None Information not available 03/17/2023 Do You Or Have You Ever Used E-cigarettes Or Vape? Never Used Electronic Cigarettes Information not available 03/17/2023 What Is The Highest Grade Or Level Of School You Have Completed Or The Highest Degree You Have Received? [id number] Information not available 03/17/2023 Do You Have An Electrostatic Air Filter? No Information not available 03/17/2023 What Is Your Occupation? [employer] Information not available 03/17/2023 Have There Been Any Changes To Your Family Or Social Situation? No Information not available 03/17/2023 What Is The Fluoride Status Of Your Home? Unknown Information not available 03/17/2023 Are There Any Guns Present In Your Home? Yes Information not available 03/17/2023 Do You Have A Humidifier? Yes Information not available 03/17/2023 Do You Use Insect Repellent Routinely? No Information not available 03/17/2023 Where Do You Live? SingleLevelHouse Information not available 03/17/2023 Do You Have A Medical Power Of Theatrical Trouper? Yes Information not available 03/17/2023 Do You Have Moisture Problems In Your Home? No Information not available 03/17/2023 What Was The Date Of Your Most Recent Tobacco Screening? 07/28/2023 [email or web address] Information not available 07/28/2023 Have You Ever Been Counseled For Unhealthy Alcohol Use? No Information not available 03/17/2023 Do You Have Any Pets? Yes Information not available 03/17/2023 What Is Your Relationship Status? [id number] Information not available 10/27/2022 Do You Use Your Seat Belt Or Car Seat Routinely? Yes Information not available 03/17/2023 Do You Have Smoke And Carbon Monoxide Detectors In Your Home? Yes Information not available 03/17/2023 Are You Passively Exposed To Smoke? No Information not available 03/17/2023 Do You Or Have You Ever Used Smokeless Tobacco? Never Used Smokeless Tobacco [id number] Information not available 10/27/2022 Are There Any Smokers In Your House? No Information not available 03/17/2023 How Much Tobacco Do You Smoke? No [id number] Information not available 10/27/2022 What Types Of Sporting Activities Do You Participate In? None Information not available 03/17/2023 Do You Feel Stressed (tense, Restless, Nervous, Or Anxious, Or Unable To Sleep At Night)? [id number] Information not available 03/17/2023 Do You Use Any Illicit Or Recreational Drugs? No Information not available 03/17/2023 Do You Use Sunscreen Routinely? No Information not available 03/17/2023 Has Tobacco Cessation Counseling Been Provided? No Not Needed-guillaume r Smoked Information not available 03/17/2023 How Many Years Have You Smoked Tobacco? 0 Information not available 03/17/2023 Have You Recently Traveled Abroad? No Information not available 03/17/2023 Do You Have Any Dietary Restrictions? No Information not available 03/17/2023 Do You Or Have You Ever Used Any Other Forms Of Tobacco Or Nicotine? No Information not available 03/17/2023 Sex: Male Functional Status Question Answer Note LastModified by Organizat ion Details LastModified Time Do you have difficulty walking or climbing stairs? No Information not available 03/17/2023 Do you have transportation difficulties? No Information not available 03/17/2023 Are you able to walk? YESWOREST Information not available 03/17/2023 Do you have difficulty doing errands alone? No Information not available 03/17/2023 Are you able to care for yourself? Yes Information n ot available 03/17/2023 Do you have difficulty dressing or bathing? No Information not available 03/17/2023 What is your exercise level? Occasional [id number] Information not available 10/27/2022 Mental Status Question Answer Note LastModified by Organization D etails LastModified Time Do you have difficulty concentrating, remembering or making decisions? No Information no t available 03/17/2023 Family History Relationship Description Onset Age of this Age Resolved Age Notes LastModified by Organization Details LastModified Time Father Diabetes mellitus 55 [id number] Not available 10/27/2022 02:56:03 Mother Chronic obstructive pulmonary disease 63 cyahl Not available 2022 10:04:12 Medical History Condition Response BLINDNESS N NERVE DISEASE N RHEUMATIC FEVER N BLADDER PROBLEMS N KIDNEY STONES N MRSA N OTHER # 1 N POLIO N LUNG DISEASE/DISORDER N RADIATION / CHEMOTHERAPY N COPD N Other # 2 N BLOOD DISEASES N SURGERY N EAR OR HEARING PROBLEMS N MUMPS N BOWEL PROBLEMS N DEPRESSION (INCLUDING POST ) N STROKE/TIA N ULCERS N BENIGN PROSTATIC HYPERPLASIA N MEASLES N MYOCARDIAL INFARCTION N OBESITY N GERD/NAUSEA N ANEURYSM N URINARY/BLADDER/KIDNEY PROBLEMS N CORONARY ARTERY DISEASE (CAD) N ADDICTION CONCERNS N Impotence N ENDOMETRIOSIS N USE OF BLOOD THINNERS N SKIN PROBLEMS N GASTROINTESTINAL DISORDER N PERIPHERAL VASCULAR DISEASE N MUSCLE,JOINT OR BONE PROBLEMS N GASTROINTESTINAL BLEEDING N BLOOD CLOTS N ASTHMA N CATARACTS N ERECTILE DYSFUNCTION N VARICOSITIES N GI PROBLEMS N Low Testosterone N INFERTILITY N AIDS/HIV N CHEMOTHERAPY / RADIATION N LIVER DISEASE N MALE HYPOGONADISM N HYPERTENSION Y Deficiency N ANXIETY DISORDER Y BLOOD TRANSFUSION N ANEMIA/BLOOD DISORDER N CHRONIC EAR INFECTIONS N BRONCHITIS Y TUBERCULOSIS N GLAUCOMA N FOOT PROBLEM N DIVERTICULITIS N SLEEP APNEA N CHICKENPOX N INFECTIOUS DISEASE N PROSTATE N HEART ARRHYTHMIA N INSOMNIA N HIGH CHOLESTEROL / HYPERLIPIDEMIA Y EYE PROBLEMS N HYPERTHYROIDISM N NEUROLOGICAL PROBLEMS N EDEMA N CHRONIC PAIN SYNDROME N HYPOTHYROIDISM N CAROTID BLOCKAGE N CONSTIPATION N BACK / NECK PROBLEMS N HAVE YOU BEEN HOSPITALIZED OR SEEN IN [facility] IN THE PAST YEAR ? N ATHEROSCLEROSIS N BREAST PROBLEMS N DIALYSIS N ECZEMA N OSTEOPOROSIS N ARTHRITIS N APPENDICITIS N DIABETES, TYPE N BAD TEETH N ENT N HEARTBURN / REFLUX N AUTISM SPECTRUM DISORDER (ASD) N HEPATITIS / LIVER DISEASE N GOUT Y SLEEP DISORDER N ALZHEIMER'S DISEASE N Brain Problems N DEMENTIA N HERPES N SEIZURES/EPILEPSY N HEADACHES/MIGRAINES N VASCULAR DISEASE N PACEMAKER N Blood Disorder N DIZZINESS N HEART DISEASE/HEART PROBLEMS N KIDNEY DISEASE N MULTIPLE SCLEROSIS N CANCER: SPECIFY N CARDIAC ARRHYTHMIA N ATRIAL FIBRILLATION N Gall Stones N PULMONARY EMBOLISM N AUTOIMMUNE DISEASE N Immunizations Vaccine Type Date Status Note Provider Nam e and Address Organization Details Recorded Time Influenza, high-dose, quadrivalent, PF 1 completed Not Available [facility] 10/27/2022 03:13:13 COVID-19, mRNA, LNP-S, PF, 100 mcg/0.5mL dose or 50 mcg/0.25mL dose 1 completed Not Available [facility] 10/27/2022 03:13:14 COVID-19, mRNA, LNP-S, PF, 100 mcg/0.5mL dose or 50 mcg/0.25mL dose 1 completed Not Available [facility] 10/27/2022 03:13:14 COVID-19, mRNA, LNP-S, PF, 100 mcg/0.5mL dose or 50 mcg/0.25mL dose 1 completed Not Available [facility] 10/27/2022 03:13:14 zoster, unspecified formulation 1 completed Not Available [facility] 10/27/2022 03:13:14 zoster, unspecified formulation 0 completed Not Available [facility] 10/27/2022 03:13:14 Influenza, high-dose, quadrivalent, PF 0 completed Not Available [facility] 10/27/2022 03:13:14 Influenza, high-dose, quadrivalent, PF 2 completed Not Available [facility] 10/27/2022 03:13:14 Influenza, high-dose, trivalent, PF 9 completed Not Available [facility] 10/27/2022 03:13:14 Influenza, split virus, trivalent, preservative 4 completed Not Available [facility] 10/27/2022 03:13:14 Influenza, split virus, quadrivalent, PF 8 completed Not Available [facility] 10/27/2022 03:13:14 Past Encounters Encounter ID Performer Location Encounter Start Date Encounter Closed Date Diagnosis/Indication Diagnosis SNOMED-CT Code Diagnosis ICD10 Code Diagnosis Note [id number] [facility] [place] [address] [facility] y , [place] [address] 12/11/2020 00:00:00 12/11/2020 10:48:19 [id number] [facility] [place] [address] [place] [address] y , [place] [address] 03/05/2021 00:00:00 03/05/2021 22:48:25 [id number] [facility] [place] [address] [place] [address] y , [place] [address] 08/11/2021 00:00:00 08/11/2021 21:56:49 [id number] [facility] [place] [address] [place] [address] [place] [address] 10/13/2021 00:00:00 10/13/2021 21:52:52 [id number] [facility] [place] [address] [place] [address] [place] [address] 12/15/2021 00:00:00 12/16/2021 08:08:32 [id number] [facility] [address], [facility] [address] [place] [address] 06/24/2022 00:00:00 07/24/2022 10:35:02 [id number] [facility] [place] [address] [place] [address] [place] [address] 07/13/2022 00:00:00 07/13/2022 22:53:31 [id number] [facility] [place] [address] [place] [address] [place] [address] 08/10/2022 00:00:00 08/10/2022 13:50:35 [id number] Devante Ocasio MD [address] [address] 11/17/2022 09:33:53 11/18/2022 08:35:49 Periodic limb movement disorder 091650101 G47.61 D50.8 E83.42 Obstructiv e sleep apnea syndrome 39895023 G47.33 [id number] Devante Ocasio MD [address] [address] 12/14/2022 09:31:33 12/15/2022 08:25:21 Obstructive sleep apnea syndrome 29445144 G47.33 Cobalamin deficiency 190 688817 E53.8 D64.9 [id number] Devante Ocasio MD [address] [address] 03/15/2023 10:26:20 03/16/2023 08:46:33 Obstructive sleep apnea syndrome 91852594 G47.33 Cobalamin deficiency 190 755776 E53.8 D64.9 [id number] Aman Jerry MD [facility] [place] [address] [place] [address] [place] [address] 03/17/2023 10:02:28 03/17/2023 10:36:20 Renewal of prescription 645361005 Z76.0 Dyslipidemia 459698774 E 78.5 Gout 76142325 M10.9 Obstructiv e sleep apnea syndrome 45705958 G47.33 [id number] Aman Jerry MD [facility] [place] [facility] [place] [address] 07/28/2023 10:16:14 07/28/2023 11:26:02 Dyslipidemia 814752820 E78.5 Anxiety state 549182383 F41.1 Cervical arthritis 81945 1000 M46.92 Gout 32977881 M10.9 Health Concerns Section Related Observation LastModified by Organization Detai ls LastModified Time None Recorded Concern Status LastModified by Organization Details LastModified Time None Recorded Advance Directives Directive Y: Payers Encounter Date Sequence Insurance Name Policy Number Policy White Covered Member ID White Member ID Guarantor Name 11/17/2022 1 [place] Bebeto Rasheed [id number] Bebeto Rasheed 11/17/2022 2 [employer] (MEDICARE SUPPLEMENT) Bebeto Rasheed [id number] Bebeto Rasheed 12/14/2022 1 [place] Bebeto Rasheed [id number] Bebeto Rasheed 12/14/2022 2 [employer] (MEDICARE SUPPLEMENT) Bebeto Rasheed [id number] Bebeto Rasheed 03/15/2023 1 [place] Bebeto Rasheed [id number] Bebeto Rasheed 03/15/2023 2 [employer] (MEDICARE SUPPLEMENT) Bebeto Rasheed [id number] Bebeto Rasheed 03/17/2023 1 [place] Bebeto Rasheed [id number] Bebeto Rasheed 03/17/2023 2 [employer] (MEDICARE SUPPLEMENT) Bebeto Rasheed [id number] Bebeto Rasheed 07/28/2023 1 [place] Bebeto Rasheed [id number] Bebeto Rasheed 07/28/2023 2 [employer] (MEDICARE SUPPLEMENT) Bebeto Rasheed [id number] Bebeto Rasheed Notes Date Note Type Note Provider Name and Address Organization Details Recorded Time 11/17/2022 text/html Primary care/Ref erring provider: Aman Jerry MD [facility] split night sleep study 08/05/22 AHI = 20, supine AHI = 37, REM AHI = 96, PLMI = 64. At home since 09/20/22, the patient uses a [employer] AirSense 11 autoset unit with heated humidification. The patient does not need the ramp to start low and go up slowly on the pressure anymore. There is no xerostomia in a.m. There is no hose/mask condensation with water. The patient wears a [employer] medium AirTouch F20 full face mask without chin strap. There is no claustrophobia, no nostril/nose bridge irritation, no facial rash, no facial numbness, no nosebleeding. The patient feels more refreshed upon waking and daytime alertness is improved. Energy levels are sustained until early afternoon, around 2 pm. At home, the patient sleeps from 9 pm to 4:30 am and wakes up with an alarm. Snoring: heavy, since . Snorting: no Choking: no Coughing: no Gasping: no Gagging: no Sighing: no Witnessed apnea: yes Twitching or jerking of leg(s), arm(s), body, head: yes Teeth grinding: yes Teeth clenching: yes Sleeptalking: yes Sleepwalking: no Sleep crying: yes Bedwetting: no Tongue/lip/gum/cheek biting: no Sleeping with open mouth: yes Sleep paralysis: no Hypnagogic hallucinations: no Hypnopompic hallucinations: no Vivid dreams: yes, act like working in the farm Difficulty with sleep onset: no Difficulty with sleep maintenance: yes Sleep interruptions: bodily aches Patient wakes up with: fatigue Daytime cataplexy: no Morning hypersomnolence: no Afternoon hypersomnolence: yes Caffeine sources in diet: coffee 3 cups per day, tea 1 can per day Associated medical and psychiatric conditions: Congestive heart failure: no Coronary artery disease: no Myocardial infarction: no Hypertension: no Stroke: no Bronchial asthma: no Chronic obstructive pulmonary disease: no Depression: no Bipolar disorder: no Anxiety: yes Panic disorder: no Posttraumatic stress disorder: no Attention deficit and hyperactivity disorder: no Obsessive Compulsive disorder: no Schizophrenia: no Schizoaffective disorder: no Personality disorder: no Chronic analgesic use: no Chronic sedative/hypnotic use: no EPWORTH SLEEPINESS SCALE (ESS) CHANCE OF DOZING SCORE 0 = would never doze 1 = slight chance of dozing 2 = moderate chance of dozing 3 = high chance of dozing SITUATION AND CHANCE OF DOZING Sitting and reading - 2 Watching television - 2 Sitting inactive in a public place (e.g. a theater or meeting) - 1 As a passenger in a car for an hour without a break - 1 Lying down to rest in the afternoon when circumstances permit - 2 Sitting and talking to someone - 1 Sitting quietly after lunch without alcohol - 1 In a car, while stopped for a few minutes in the traffic - 1 TOTAL SCORE 11 Subjectively, patient has a moderate chance of dozing. Devante Ocasio MD [address] [place] [address], [place], [address], [place] - [facility] [employer] 11/17/2022 10:25:25 12/14/2022 text/html Primary care/Ref erring provider: Aman Jerry MD During the [facility] split night sleep study on 08/05/22, AHI = 20, supine AHI = 37, REM AHI = 96. PLMI = 64 and he is here to go over his lab workup. At home since 11/17/22, the patient uses a ResMed AirSense 11 autoset unit with heated humidification. The patient does not need the ramp to start low and go up slowly on the pressure anymore. There is no xerostomia in a.m. There is no hose/mask condensation with water.The patient wears a ResMed medium AirTouch F20 full face mask without chin strap. There is no claustrophobia, no nostril/nose bridge irritation, no facial rash, no facial numbness, no nosebleeding. The patient feels more refreshed upon waking and daytime alertness is improved. Energy levels are sustained until early afternoon, around 2 pm. At home, the patient sleeps from 9 pm to 4:30 am and wakes up with an alarm. Snoring: heavy, since .Snorting: noChoking: noCoughing: noGasping: noGagging: noSighing: noWitnessed apnea: yesTwitching or jerking of leg(s), arm(s), body, head: yesTeeth grinding: yesTeeth clenching: yesSleeptalking: yesSleepwalking: noSleep crying: yesBedwetting: noTongue/lip/gum/cheek biting: noSleeping with open mouth: yesSleep paralysis: noHypnagogic hallucinations: noHypnopompic hallucinations: noVivid dreams: yes, act like working in the [employer] with sleep onset: noDifficulty with sleep maintenance: yesSleep interruptions: bodily achesPatient wakes up with: fatigueDaytime cataplexy: noMorning hypersomnolence: noAfternoon hypersomnolence: yesCaffeine sources in diet: coffee 3 cups per day, tea 1 can per day Associated medical and psychiatric conditions:Congestive heart failure: noCoronary artery disease: noMyocardial infarction: noHypertension: noStroke: noBronchial asthma: noChronic obstructive pulmonary disease: noDepression: noBipolar disorder: noAnxiety: yesPanic disorder: noPosttraumatic stress disorder: noAttention deficit and hyperactivity disorder: noObsessive Compulsive disorder: noSchizophrenia: noSchizoaffective disorder: noPersonality disorder: noChronic analgesic use: noChronic sedative/hypnotic use: no EPWORTH SLEEPINESS SCALE (ESS) CHANCE OF DOZING SCORE0 = would never doze1 = slight chance of dozing2 = moderate chance of dozing3 = high chance of dozing SITUATION AND CHANCE OF DOZINGSitting and reading - 2Watching television - 2Sitting inactive in a public place (e.g. a theater or meeting) - 1As a passenger in a car for an hour without a break - 1Lying down to rest in the afternoon when circumstances permit - 3Sitting and talking to someone - 1Sitting quietly after lunch without alcohol - 2In a car, while stopped for a few minutes in the traffic - 1TOTAL SCORE 13Subjectively, patient has a moderate chance of dozing. Devnate Ocasio MD [address] [place] [address], [address], [facility] 12/14/2022 10:13:39 03/15/2023 text/html Primary care/Ref erring provider: Aman Jerry MD During the [facility] split night sleep study on 08/05/22, AHI = 20, supine AHI = 37, REM AHI = 96. PLMI = 64 and he is on B12 supplements. At home since 12/14/22, the patient uses a ResMed AirSense 11 autoset unit with heated humidification. The patient does not need the ramp to start low and go up slowly on the pressure anymore. There is no xerostomia in a.m. There is no hose/mask condensation with water.The patient wears a ResMed medium AirTouch F20 full face mask without chin strap. There is no claustrophobia, no nostril/nose bridge irritation, no facial rash, no facial numbness, no nosebleeding. The patient feels more refreshed upon waking and daytime alertness is improved. Energy levels are sustained until early afternoon, around 2 pm. At home, the patient sleeps from 9 pm to 4:30 am and wakes up with an alarm. Snoring: heavy, since .Snorting: noChoking: noCoughing: noGasping: noGagging: noSighing: noWitnessed apnea: yesTwitching or jerking of leg(s), arm(s), body, head: yesTeeth grinding: yesTeeth clenching: yesSleeptalking: yesSleepwalking: noSleep crying: yesBedwetting: noTongue/lip/gum/cheek biting: noSleeping with open mouth: yesSleep paralysis: noHypnagogic hallucinations: noHypnopompic hallucinations: noVivid dreams: yes, act like working in the [employer] with sleep onset: noDifficulty with sleep maintenance: yesSleep interruptions: bodily achesPatient wakes up with: fatigueDaytime cataplexy: noMorning hypersomnolence: noAfternoon hypersomnolence: yesCaffeine sources in diet: coffee 3 cups per day, tea 1 can per day Associated medical and psychiatric conditions:Congestive heart failure: noCoronary artery disease: noMyocardial infarction: noHypertension: noStroke: noBronchial asthma: noChronic obstructive pulmonary disease: noDepression: noBipolar disorder: noAnxiety: yesPanic disorder: noPosttraumatic stress disorder: noAttention deficit and hyperactivity disorder: noObsessive Compulsive disorder: noSchizophrenia: noSchizoaffective disorder: noPersonality disorder: noChronic analgesic use: noChronic sedative/hypnotic use: no EPWORTH SLEEPINESS SCALE (ESS) CHANCE OF DOZING SCORE0 = would never doze1 = slight chance of dozing2 = moderate chance of dozing3 = high chance of dozing SITUATION AND CHANCE OF DOZINGSitting and reading - 2Watching television - 2Sitting inactive in a public place (e.g. a theater or meeting) - 2As a passenger in a car for an hour without a break - 1Lying down to rest in the afternoon when circumstances permit - 2Sitting and talking to someone - 1Sitting quietly after lunch without alcohol - 2In a car, while stopped for a few minutes in the traffic - 1TOTAL SCORE 13Subjectively, patient has a moderate chance of dozing. Devante Ocasio MD [address], [place], [address], [facility] [employer] 03/15/2023 11:02:53 03/17/2023 text/html 1. Gout no flare -ups. 2. Rhinitis about the same. 3. Dyspnea better. 4. Hyperlipidemia trying to follow diet. 5. Hyperlipidemia tries to watch diet 6. Obesity not successful who weight 7. Sleep apnea CPAP now bloating a lot Aman Jerry MD [address], [place], [address], [facility] [employer] 03/18/2023 20:13:12 07/28/2023 text/html Dyslipidemia tra michelle follow low-fat diet anxiety has been stable his arthritis is neck doing fine sleep apnea okay gout no red hot swollen joints needs to lose a little weight actually feels good Aman Jerry MD [address], [place], [address], [facility] [employer] 07/29/2023 13:43:32
--- OUTSIDE RECORDS SUMMARY | 2024-09-06 03:23 | XMS_ITS | Continuity of Care Document ---
Author Organization [facility] (Adult Med) Address [address] [place] [address] Care Team Providers Care Can Pusher Name Role Phone AMAN JERRY Primary Care Provider [phone] Assessment Encounter Date Assessment Date Assessment LastModified by Organization Details LastModified Time 06/01/2024 06/01/2024 we will start losartan 50 HCTZ H 12.5 blood pressure check in a week see me in 2-3 weeks I have recommended he get CT scan of the head he has refused healthy lifestyle care instructions also discussed [email or web address] Not available 07/01/2024 22:44:38 Plan of Treatment Reminders Order Date Submit Date Provider Last Modified By Organization Details Last Modified Time Details Appointments ANY 15 2024 09:15A M Aman Jerry MD Not available Not available Not available Lab None recorded. Referral None recorded. Procedures None recorded. Surgeries None recorded. Imaging None recorded. Medication Orders losartan 50 mg-hydroc hlorothia zide 12.5 mg tablet 2023 024 [id number], [address] [facility], [place], [place], [id number], 06/07/2024 11:08:02 Patient TargetsNo targets recorded. Patient Instructions Encounter Date Encounter Id Patient Instructions Last Modified By Organization Details Last Modified Time 06/01/2024 [id number] A healthy lifestyle: care instructions [email or web address] Not available 06/01/2024 11:34:19 Reason for Referral None Reported. Results Created Date Observation Date Name Description Value Unit Range Abnormal Flag Note LastModifiedBy Organization Detail LastModifiedTime 08/05/20 24 08/05/2024 XR, humer us No observ ation record ed. [address], [place], [address], 08/05/2024 22:00:01 08/05/20 24 08/05/2024 CT, brain , w/o contr ast No observ ation record ed. [address], [place], [address], 08/06/2024 09:39:16 08/05/20 24 08/05/2024 CT, face, w/ contr ast No observ ation record ed. [address], [place], [address], 08/06/2024 09:45:08 08/05/20 24 08/05/2024 CT, cervi yasmeen spine , w/o contr ast No observ ation record ed. [address], [place], [address], 08/06/2024 10:39:35 08/13/20 24 04/28/2022 colon oscop y proce dure (PROC ) No observ ation record ed. [address], [place], [address], 08/14/2024 16:21:28 08/14/20 24 08/04/2022 exerc ise stres s test No observ ation record ed. [address], [place], [address], 08/14/2024 12:32:49 08/30/19 25 08/30/2024 US, echoc ardio gram No observ ation record ed. [address], [place], [address], 09/05/2024 22:38:16 09/02/19 25 08/31/2024 US, ross mcmahon id arter y No observ ation record ed. [address], [place], [address], 09/05/2024 22:38:16 09/03/19 25 08/31/2024 US, ross mcmahon id arter y No observ ation record ed. [email or web address] [place] [id number] [facility] [address], [place], [address], 09/05/2024 22:38:16 Result Notes None recorded. Problems Name Problem SNOMED Code Status Onset Date Resolution Date Notes Provider Name and Address Organization Details Recorded Time Pain in left arm 920266083 Active 2023 Diana Bell MA [facility], [place] - [facility] 4 12:44:18 Gastroesophage al reflux disease without esophagitis 908849296 Active 2023 Aman Jerry MD Attn: Tiffanie luna,[address] [facility], [place], [place], [address] [place] [address] 2, [place] - [facility] 4 21:09:54 Chronic rhinitis 67470939 Active 2023 Aman Jerry MD Attn: Tiffanie luna,[address] [facility], [place], [address], [place] [facility] 4 21:09:55 Gout 07202913 Active 2023 Aman Jerry MD Attn: Tiffanie luna,[address] [facility], [place], [address], [place] [facility] 4 21:09:56 Hyperlipidemia 47550009 Active 2023 Aman Jerry MD Attn: Tiffanie luna,[address] [facility], [place], [address], [place] - [facility] 4 21:10:00 Essential hypertension 97403257 Active 2023 Aman Jerry MD Attn: Tiffanie luna,[address] [facility], [place], [address], [place] - [facility] 4 21:01:33 Problem [...] ENT exam we will stay on this jail per his ENT Not Available Not Available [...] Updated DateTime 4 182.88 cm 47.3 kg/m2 831366. 58 g 62 /min 97 % 97 % 61 /min 98 % 98 % 138 mm[Hg] 68 mm[Hg] 160 mm[Hg] 90 mm[Hg] Bee Wilder [place] - [facility] 10:25:58 Date Recorded Heart rate Oxygen saturation Oxygen saturation in Arterial blood by Pulse oximetry Systolic blood pressure Diastolic blood pressure Systolic blood pressure Diastolic blood pressure Provider Name and Address Organization Details Last Updated DateTime 64 /min 96 % 96 % 164 mm[Hg] 80 mm[Hg] 162 mm[Hg] 84 mm[Hg] Bee Wilder MA [place] - [facility] 4 10:20:47 Date Recorded Body height Oxygen saturation Oxygen saturation in Arterial blood by Pulse oximetry Heart rate Systolic blood pressure Diastolic blood pressure Provider Name and Address Organization Details Last Updated DateTime 182.88 cm 97 % 97 % 63 /min 140 mm[Hg] 72 mm[Hg] Bev Torres MA [place] - [facility] 10:03:43 Social History Question Answer Notes LastModified by Organizat ion Details LastModified Time Tobacco Smoking Status Never Smoker Bee Wilder [place], [place] - [facility] 06/01/2024 10:20:40 Do You Have An Advance [...] Anxious, Or Unable To Sleep At Night)? [id number] Information not available 03/26/2024 Do You Use [...] Skin Problems N Anemia N Heart Attack ([place]) N Anxiety Disorder N Diabetes N Muscle, Joint, or Bone Problems N Seizures/Epilepsy N Have you had a colonoscopy in the last 1 0 years? N Acid Reflux (GERD) N Cancer N Stroke N Asthma N Allergies N Have you had a PSA blood test in the t year? N High Cholesterol Y Hepatitis N Liver Disease N Headaches N Heart Failure N Osteoporosis N Immunizations [...] 11:43:19 Influenza, adjuvanted, quadrivalent, PF 1 completed Inder Kingsley MA null, [place] - [facility] 03/26/2024 11:43:19 COVID-19, mRNA, LNP-S, PF, 100 mcg/0.5mL dose or 50 mcg/0.25mL dose 1 completed Inder Kingsley MA null, [place] - [facility] 03/26/2024 11:43:19 COVID-19, mRNA, [...] SNOMED-CT Code Diagnosis ICD10 Code Diagnosis Note [id number] Aman Jerry MD [facility] (Adult Med) [address] [place] [address] 06/01/2024 09:55:57 06/01/2024 10:45:35 Morbid obesity 297498848 E66.01 Essential hypertension 51502410 I10 Health Concerns Section Related Observation LastModified by Organization Detai ls LastModified Time None Recorded Concern Status LastModified by Organization Details LastModified Time None Recorded Payers Encounter Date Sequence Insurance Name Policy Number Policy White Covered Member ID White Member ID Guarantor Name 06/01/2024 1 [place] Bebeto Rasheed [id number] Bebeto Rasheed 06/01/2024 2 [employer] (MEDICARE SUPPLEMENT) Bebeto Rasheed [id number] Bebeto Rasheed Notes Date Note Type Note Provider Name and Address Organization Details Recorded Time 06/01/2024 text/html Then a dull headache and was found to be hypertensive Aman Jerry MD Attn: Accounting,[address] [facility], [place], [address], [place] - [facility] 07/01/2024 22:44:54 06/21/2024 text/html tolerating the medication short interval follow up on blood pressure Aman Jerry MD Attn: Accounting,[address] [facility], [place], [address], [facility] - [facility] 06/30/2024 21:02:15
--- OUTSIDE RECORDS SUMMARY | 2024-09-06 03:23 | XMS_ITS | Continuity of Care Document ---
Author Organization [place] [facility] [place] Address [address] [place] [address] Care Team Providers Care Obstetric Anaesthetist Name Role Phone ESTEBAN JERRY Primary Care Provider Assessment No assessment recorded. Plan of Treatment Reminders Order Date Submit [...] humer us No observ ation record ed. [place] [id number] [facility] [address] [place] [address], [address], 08/05/2024 22:00:01 08/05/20 24 08/05/2024 CT, brain , w/o contr ast No observ ation record ed. [place] [id number] [facility] [address], [place], [address], 08/06/2024 09:39:16 08/05/20 24 08/05/2024 CT, face, w/ contr ast No observ ation record ed. [place] [id number] [facility] [address], [place], [address], 08/06/2024 09:45:08 08/05/20 24 08/05/2024 CT, cervi yasmeen spine , w/o contr ast No observ ation record ed. [address], [place], [address], 08/06/2024 10:39:35 08/13/20 24 04/28/2022 colon oscop y proce dure (PROC ) No observ ation record ed. [address], [place], [address], 08/14/2024 16:21:28 08/14/20 24 08/04/2022 exerc ise stres s test No observ ation record ed. [address], [place], [address], 08/14/2024 12:32:49 08/30/19 25 08/30/2024 US, echoc ardio gram No observ ation record ed. [address], [place], [address], 09/05/2024 22:38:16 09/02/19 25 08/31/2024 US, samir timmons carot id arter y No observ ation record ed. [address], [place], [address], 09/05/2024 22:38:16 09/03/19 25 08/31/2024 US, samir timmons carot id arter y No observ ation record ed. [address], [place], [address], 09/05/2024 22:38:16 Result Notes None recorded. Problems Name Problem SNOMED Code Status Onset Date Resolution Date Notes Provider Name and Address Organization Details Recorded Time Pain in left arm 271546820 Active 2023 Diana Bell MA [facility], [place] - [facility] 12:44:18 Gastroesophage al reflux disease without esophagitis 410105969 Active 2023 Esteban Jerry MD Attn: Tiffanie luna,[address] [facility], [place], [address], [place] - [facility] 4 21:09:54 Chronic rhinitis 05867133 Active 2023 Esteban Jerry MD Attn: Tiffanie luna,[address] [facility], [place], [address], [place] - [facility] 4 21:09:55 Gout 35431111 Active 2023 Esteban Jerry MD Attn: Tiffanie luna,[address] [facility], [place], [address], [place] - [facility] 4 21:09:56 Hyperlipidemia 13459538 Active 2023 Esteban Jerry MD Attn: Tiffanie luna,[address] [facility], [place], [address], [place] - [facility] 4 21:10:00 Essential hypertension 82238353 Active 2023 Esteban Jerry MD Attn: Tiffanie luna,[address] [facility], [place], [address], [place] - [facility] 4 21:01:33 Problem [...] 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 Not Available Not Available [...] Available No t Available Vitals Date Recorded Heart rate Oxygen saturation Oxygen saturation in Arterial blood by Pulse oximetry Systolic blood pressure Diastolic blood pressure Systolic blood pressure Diastolic blood pressure Provider Name and Address Organization Details Last Updated DateTime 4 64 /min 96 % 96 % 164 mm[Hg] 80 mm[Hg] 162 mm[Hg] 84 mm[Hg] Bee Wilder MA [facility] 4 10:20:47 Date Recorded Body height Oxygen saturation Oxygen saturation in Arterial blood by Pulse oximetry Heart rate Systolic blood pressure Diastolic blood pressure Provider Name and Address Organization Details Last Updated DateTime 4 182.88 cm 97 % 97 % 63 /min 140 mm[Hg] 72 mm[Hg] Bev Torres MA [facility] 4 10:03:43 Social History Question Answer Notes LastModified by Organizat ion Details LastModified Time Tobacco Smoking Status Never Smoker Bee Wilder MA null, [facility] 06/01/2024 10:20:40 Do You Have An [...] Anxious, Or Unable To Sleep At Night)? [id number] Information not available 03/26/2024 Do You Use [...] Skin Problems N Anemia N Heart Attack ([place]) N Diabetes N Anxiety Disorder N Muscle, [...] SNOMED-CT Code Diagnosis ICD10 Code Diagnosis Note [id number] MD Renetta Mckeon (Adult Med) [address] [place] [phone] 06/01/2024 09:55:57 06/01/2024 10:45:35 Morbid obesity 459268889 E66.01 Essential hypertension 54372525 I10 [id number] Diana Bell MA [facility] - Uyen Hanson [address] [place] [address] 06/07/2024 09:56:45 06/07/2024 10:41:35 Essential hypertension 12836472 I10 Health Concerns Section Related Observation LastModified by Organization Detai ls LastModified Time None Recorded Concern Status LastModified by Organization Details LastModified Time None Recorded Payers Encounter Date Sequence Insurance Name Policy Number Policy White Covered Member ID White Member ID Guarantor Name 06/07/2024 1 [place] Bebeto Rasheed [id number] Bebeto Rasheed 06/07/2024 2 [employer] (MEDICARE SUPPLEMENT) Bebeto Rasheed [id number] Bebeto Rasheed Notes Date Note Type Note Provider Name and Address Organization Details Recorded Time 06/21/2024 text/html tolerating the medication short interval follow up on blood pressure Esteban Jerry MD Attn: Accounting,[address] [facility], [place], [address], [facility] 06/30/2024 21:02:15
== END 2024-08-30 07:30 | disposition home or self-care (01) ==
LOC: ANHCARD 07:32
PROVIDERS: PCP Internal Medicine; Visit Provider Internal Medicine
DX: I51.89 Other ill-defined heart diseases (principal)
CPT/HCPCS: 93306

== ENCOUNTER 2024-08-31 13:17 | Outpatient (CLI) | payer MEDICARE, SELFPAY ==
--- NOTE | ~2024-08-31 | US_ITS ---
EXAMINATION: US carotid duplex BI DATE: 09/02/2024 17:56 AGENCY TRAINER INDICATION: Syncope TECHNIQUE: Grayscale, color Doppler, and pulsed Doppler images of the cervical carotid arteries were obtained. The degree of vessel stenosis is placed in one of the following categories: normal, <50%, 50-69%, >=7 0% but less than near-occlusion, near-occlusion, or total occlusion. Note that percent stenosis relative to normal distal artery lumen diameter is indirectly measured fro m velocity measurements as described originally by Frank, et al. Radiology 2003; 229:340-346 and upda sangita by vincenzo Armstrong al STROKE 2012;43(3);915-921. COMPARISON: None. FINDINGS: There is mild atherosclerosis of both carotid arteries. Peak systolic velocity (in cm/s) is detailed below RIGHT: Right common carotid artery (CCA): 88 cm/s. Right internal carotid artery (ICA) PSV: 92 cm/s. Right ICA end-diastolic velocity (EDV): 30 cm/s. Right ICA/CCA PSV ratio is 1. Right external carotid artery (ECA): 166 cm/s. There is antegrade flow in the right vertebral artery. LEFT: Left common carotid artery (CCA): 82cm/s. Left internal carotid artery (ICA) PSV: 86 cm/s. Left ICA end-diastolic velocity (EDV): 33 cm/s. Left ICA/CCA PSV ratio is 1. Left external carotid artery (ECA): 132 cm/s. There is antegrade flow in the left vertebral artery. IMPRESSION: 1. Less than 50% stenosis in the right internal carotid artery. 2. Less than 50% stenosis in the left internal carotid artery. Incidentally noted within the lower pole of the right lobe of the thyroid gland is a 12.5 x 10 x 11 m m nodule. Composition - spongiform Echogenicity - mixed hyperechoic and isoechoic Shape - wider than tall Margin - smooth Echogenic foci - macrocalcifications. = TR1 benign, no FNA If clinically indicated, further evaluation of the remainder of the thyroid gland may be performed, i f the patient is clinically able. Was becoming overhear or tibial only decreased to 1 to the left int o Reviewed, dictated and finalized at location A. CY TRAINER IMPRESSION: 1. Less than 50% stenosis in the right internal carotid artery. 2. Less than 50% stenosis in the left internal carotid artery. Incidentally noted within the lower pole of the right lobe of the thyroid gland is a 12.5 x 10 x 11 mm nodule. Composition - spongiform Echogenicity - mixed hyperechoic and isoechoic Shape - wider than tall Margin - smooth Echogenic foci - macrocalcifications. = TR1 benign, no FNA If clinically indicated, further evaluation of the remainder of the thyroid gla nd may be performed, if the patient is clinically able. Was becoming overhear o r tibial only decreased to 1 to the left into
== END 2024-08-31 13:18 | disposition home or self-care (01) ==
LOC: ANHIMG 13:18
PROVIDERS: PCP Internal Medicine; Visit Provider Internal Medicine
DX: R55 Syncope and collapse (principal); I65.23 Occlusion and stenosis of bilateral carotid arteries
CPT/HCPCS: 93880

== ENCOUNTER 2024-09-28 14:25 | Outpatient (CLI) | payer MEDICARE, SELFPAY ==
--- NOTE | ~2024-09-28 | US_ITS ---
EXAMINATION: US thyroid DATE: 09/28/2024 15:12 INDICATION: Nontoxic single thyroid nodule. TECHNIQUE: Multiple ultrasound images of the thyroid were obtained. COMPARISON: None. FINDINGS: The right thyroid lobe measures 5.9 x 1.9 x 1.4 cm. The left thyroid lobe measures 4.8 x 1.6 x 1.9 c m. In the right thyroid lobe, there is a 12 mm solid, isoechoic, wider than tall nodule with irregul ar margin and punctate echogenic foci (TI-RADS TR5). IMPRESSION: 1. Right thyroid nodule. Ultrasound-guided fine-needle aspiration is recommended. Reviewed, dictated and finalized at location A. [facility] IMPRESSION: 1. Right thyroid nodule. Ultrasound-guided fine-needle aspiration is recommende dAngelina
--- OUTSIDE RECORDS SUMMARY | 2024-09-28 14:34 | XMS_ITS | Data Portability ---
Author Organization [facility] JENNIFER [place] Address [address] [place] [address] Care Team Providers Care Faith Healer Name Role Phone ESTEBAN JERRY Primary Care Provider [phone] Assessment Encounter Date Assessment Date Assessment LastModified by Organization Details LastModified Time 06/01/2024 06/01/2024 we will start losartan 50 HCTZ H 12.5 blood pressure check in a week see me in 2-3 weeks I have recommended he get CT scan of the head he has refused healthy lifestyle care instructions also discussed [email or web address] Not available 07/01/2024 22:44:38 06/21/2024 06/21/2024 blood pressure under better control continue current therapy he will keep his regular follow up with me Not available 06/30/2024 21:01:57 08/13/2024 08/13/2024 labs from hospital reviewed. Obtain event monitor echocardiogram carotid duplex he needs to use his CPAP regularly he has not been using it he will keep his regular [email or web address] Not available 08/13/2024 23:19:00 Plan of Treatment Reminders Order Date Submit Date Provider Last Modified By Organization Details Last Modified Time Details Appointments ANY 15 2024 09:30A Usha Jerry MD Not available Not available Not available Lab None recorded. Referral None recorded. Procedures None recorded. Surgeries None recorded. Imaging event monitor - 30 day event monitor 2023 024 [facility] (Cardiology & Emg), [address], [place], [address], 09/28/2024 04:59:29 US, echocardi ogram 2023 024 [facility] (Cardiology & Emg), [address] [facility] [place], [address], 08/30/2024 17:51:04 US, duplex, carotid artery - 4 be there at 130pm. 2023 024 [facility] (Imaging), [address] [place] [address] [address], [place], [address], 09/02/2024 19:36:18 Medication Orders losartan 50 mg-hydroc hlorothia zide 12.5 mg tablet 2023 [place] [id number], [address] [facility], [place], [place], [id number], 06/07/2024 11:08:02 Patient TargetsNo targets recorded. Patient Instructions Encounter Date Encounter Id Patient Instructions Last Modified By Organization Details Last Modified Time 06/01/2024 [id number] A healthy lifestyle: care instructions [email or web address] Not available 06/01/2024 11:34:19 Reason for Referral None Reported. Results Created Date Observation Date Name Description Value Unit Range Abnormal Flag Note LastModifiedBy Organization Detail LastModifiedTime 08/05/2008/05/2024 XR, humer us No observ ation record ed. [address] [address], [place], [address], 08/05/2024 22:00:01 08/05/20 24 08/05/2024 CT, brain , w/o contr ast No observ ation record ed. [address] [address], [place], [address], 08/06/2024 09:39:16 08/05/20 24 08/05/2024 CT, face, w/ contr ast No observ ation record ed. [address], [place], [address], 08/06/2024 09:45:08 08/05/20 24 08/05/2024 CT, cervi yasmeen spine , w/o contr ast No observ ation record ed. [facility] [address] [place] [address] [address], [place], [address], 08/06/2024 10:39:35 08/13/20 24 04/28/2022 colon oscop y proce dure (PROC ) No observ ation record ed. [facility] [address] [facility] [facility] [address], [place], [address], 08/14/2024 16:21:28 08/14/20 24 08/04/2022 exerc ise stres s test No observ ation record ed. [address], [place], [address], 08/14/2024 12:32:49 08/30/19 25 08/30/2024 US, echoc ardio gram No observ ation record ed. [address], [place], [address], 09/12/2024 11:32:10 09/02/19 25 08/31/2024 US, samir xluis et id arter y No observ ation record ed. [address], [place], [address], 09/12/2024 11:32:11 09/03/19 25 08/31/2024 US, samir timmons carot id arter y No observ ation record ed. [address], [place], [address], 09/12/2024 11:32:11 Result Notes None recorded. Problems Name Problem SNOMED Code Status Onset Date Resolution Date Notes Provider Name and Address Organization Details Recorded Time Pain in left arm 408452895 Active 2023 Diana Bell MA [place], [place] - [facility] 12:44:18 Gastroesophage al reflux disease without esophagitis 658937348 Active 2023 Esteban Jerry MD Attn: Tiffanie luna,[address] [facility], [place], [address], [place] - [facility] 4 21:09:54 Chronic rhinitis 12938922 Active 2023 Esteban Jerry MD Attn: Tiffanie luna,[address] [facility], [place], [address], [place] [facility] 4 21:09:55 Gout 29973504 Active 2023 Esteban Jerry MD Attn: Tiffanie luna,[address] [facility], [place], [address], [place] - [facility] 4 21:09:56 Hyperlipidemia 80658633 Active 2023 Esteban Jerry MD Attn: Tiffanie luna,[address] [facility], [place], [address], [place] - [facility] 4 21:10:00 Essential hypertension 05197828 Active 2023 Esteban Jerry MD Attn: Tiffanie luna,[address] [facility], [place], [address], [place] - [facility] 21:01:33 Problem Notes None recorded. Procedures Surgical History None recorded. Imaging Results Imaging Date Name Status LastModified by Organization Details LastModified Time 08/05/2024 XR, humerus completed [address] [place] [address], [address], 08/05/2024 22:00:01 08/05/2024 CT, brain, w/o contrast completed [address], [address], 08/06/2024 09:39:16 08/05/2024 CT, face, w/ contrast completed [address], [address], 08/06/2024 09:45:08 08/05/2024 CT, cervical spine, w/o contrast completed [address], [address], 08/06/2024 10:39:35 04/28/2022 colonoscopy procedure (PROC) completed [address], [place], [address], 08/14/2024 16:21:28 08/04/2022 exercise stress test completed [address], [place], [address], 08/14/2024 12:32:49 08/30/2024 US, echocardiogram completed [address], [place], [address], 09/12/2024 11:32:10 08/31/2024 US, duplex, carotid artery completed [address], [place], [address], 09/12/2024 11:32:11 08/31/2024 US, duplex, carotid artery completed [address], [place], [address], 09/12/2024 11:32:11 Procedure Notes None recorded. Medical Equipment None [...] ENT exam we will stay on this senior living per his ENT Not Available Not Available [...] Not Available Not Available No t Available sertralin e 50 mg tablet Take 1 tablet every day by oral route. 2024 active Not Available Not Available Not Avai lable amoxicill in 875 mg-potass ium clavulana te [...] t Available Vitals Date Recorded Body height Provider Name an d Address Organization Details Last Updated DateTime 06/01/2024 182.88 cm Bee Wilder MA [facility] 10:16:34 Date Recorded Body mass index (BMI) Body weight Provider Name and Address Organization Details Last Updated DateTime 06/01/2024 47.3 kg/m2 483943.58 g Bee Wilder MA [facility] 06/01/2024 10:20:08 Date Recorded Heart rate Provider Name an d Address Organization Details Last Updated DateTime 06/01/2024 62 /min Bee Wilder MA [facility] 10:23:40 Date Recorded Oxygen saturation Oxygen saturation in Arterial blood by Pulse oximetry Provider Name and Address Organization Details Last Updated DateTime 06/01/2024 97 % 97 % Bee Wilder MA [facility] 06/01/2024 10:23:42 Date Recorded Heart rate Provider Name an d Address Organization Details Last Updated DateTime 06/01/2024 61 /min Bee Wilder [place] - [facility] 10:26:56 Date Recorded Oxygen saturation Oxygen saturation in Arterial blood by Pulse oximetry Provider Name and Address Organization Details Last Updated DateTime 06/01/2024 98 % 98 % Bee Wilder [place] [facility] 06/01/2024 10:27:30 Date Recorded Heart rate Provider Name an d Address Organization Details Last Updated DateTime 06/07/2024 64 /min Bee MeñoJOSAFAT ortiz [facility] 10:20:57 Date Recorded Oxygen saturation Oxygen saturation in Arterial blood by Pulse oximetry Provider Name and Address Organization Details Last Updated DateTime 06/07/2024 96 % 96 % Bee Wilder MA [facility] 06/07/2024 10:21:02 Date Recorded Body height Provider Name an d Address Organization Details Last Updated DateTime 06/21/2024 182.88 cm Bev Torres MA [facility] 06/21/2024 09:59:32 Date Recorded Oxygen saturation Oxygen saturation in Arterial blood by Pulse oximetry Provider Name and Address Organization Details Last Updated DateTime 06/21/2024 97 % 97 % Bev Torres MA [facility] 06/21 10:07:30 Date Recorded Heart rate Provider Name an d Address Organization Details Last Updated DateTime 06/21/2024 63 /min Bev Torres MA [facility] 06/21/2024 10:07:42 Date Recorded Body height Provider Name an d Address Organization Details Last Updated DateTime 08/13/2024 182.88 cm Bee Wilder MA [facility] 11:13:06 Date Recorded Body mass index (BMI) Body weight Provider Name and Address Organization Details Last Updated DateTime 08/13/2024 46 kg/m2 843444.53 g Bee MeñoJOSAFAT [facility] 1 10/14/2023 11:14:36 Date Recorded Heart rate Provider Name an d Address Organization Details Last Updated DateTime 08/13/2024 61 /min Bee Meño JOSAFAT [place] 11:19:30 Date Recorded Oxygen saturation Oxygen saturation in Arterial blood by Pulse oximetry Provider Name and Address Organization Details Last Updated DateTime 08/13/2024 97 % 97 % Bee Wilder [place] - [facility] 08/13/2024 11:19:32 Date Recorded Body height Provider Name an d Address Organization Details Last Updated DateTime 09/24/2024 182.88 cm Bee Wilder [place] [facility] 10:25:22 Date Recorded Body mass index (BMI) Body weight Provider Name and Address Organization Details Last Updated DateTime 09/24/2024 47.1 kg/m2 782110.71 g Bee MeñoJOSAFAT [facility] 09/24/2024 10:28:18 Date Recorded Heart rate Provider Name an d Address Organization Details Last Updated DateTime 09/24/2024 69 /min Bee Wilder MA [facility] 10:36:13 Date Recorded Oxygen saturation Oxygen saturation in Arterial blood by Pulse oximetry Provider Name and Address Organization Details Last Updated DateTime 09/24/2024 95 % 95 % Bee MeñoJOSAFAT ortiz [place] 09/24/2024 10:37:45 Date Recorded Systolic blood pressure Diastolic blood pressure Provider Name and Address Organization Details Last Updated DateTime 06/01/2024 138 mm[Hg] 68 mm[Hg] Bee Me[place]JOSAFAT [place] 06/01/2024 10:23:47 Date Recorded Systolic blood pressure Diastolic blood pressure Provider Name and Address Organization Details Last Updated DateTime 06/01/2024 160 mm[Hg] 90 mm[Hg] Bee Meño JOSAFAT [place] [facility] 06/01/2024 10:25:58 Date Recorded Systolic blood pressure Diastolic blood pressure Provider Name and Address Organization Details Last Updated DateTime 06/07/2024 164 mm[Hg] 80 mm[Hg] Bee Me[place]JOSAFAT [place] 06/07/2024 10:19:39 Date Recorded Systolic blood pressure Diastolic blood pressure Provider Name and Address Organization Details Last Updated DateTime 06/07/2024 162 mm[Hg] 84 mm[Hg] Bee Wilder [place] 06/07/2024 10:20:47 Date Recorded Systolic blood pressure Diastolic blood pressure Provider Name and Address Organization Details Last Updated DateTime 06/21/2024 140 mm[Hg] 72 mm[Hg] Bev Torres MA [facility] 05/30 10:03:43 Date Recorded Systolic blood pressure Diastolic blood pressure Provider Name and Address Organization Details Last Updated DateTime 08/13/2024 130 mm[Hg] 68 mm[Hg] Bee JOSAFAT Wilder [place] - [facility] 08/13/2024 11:23:44 Date Recorded Systolic blood pressure Diastolic blood pressure Provider Name and Address Organization Details Last Updated DateTime 09/24/2024 128 mm[Hg] 64 mm[Hg] Bee Wilder MA [facility] 09/24/2024 10:37:54 Social History Question Answer Notes LastModified by Organizat ion Details LastModified Time Tobacco Smoking Status [facility]oker [facility] 06/01/2024 10:20:40 Do You Have An [...] Date Of Your Most Recent Tobacco Screening? 09/24/2024 Information not available 09/24/2024 What Is Your Relationship Status? Information not available 03/26/2024 Do You Use Your Seat Belt Or Car Seat Routinely? Yes Information not available 03/26/2024 Do You Have Smoke And Carbon Monoxide Detectors In Your Home? Yes Information not available 06/01/2024 Do You Feel Stressed (tense, Restless, Nervous, Or Anxious, Or Unable To Sleep At Night)? [id number] Information not available 03/26/2024 Do You Use [...] Problems N Kidney or Bladder Problems N Depression N COPD N Blood Clots N GI Problems N Have you had a mammogram in the last yea r? N Skin Problems N Anemia N Heart Attack ([place]) N Diabetes N Anxiety Disorder N Muscle, Joint, or Bone Problems N Seizures/Epilepsy N Have you had a colonoscopy in the last 1 0 years? N Acid Reflux (GERD) N Cancer N Stroke N Allergies N Asthma N Have you had a PSA blood test in the las t year? N High Cholesterol Y Hepatitis N Liver Disease N Headaches N Osteoporosis N Heart Failure N Immunizations Vaccine Type Date Status Note Provider Nam e and Address Organization Details Recorded Time zoster recombinant 1 completed Inder Kingsley [place], [place] - [facility] 03/26/2024 11:43:19 zoster recombinant 0 completed JOSAFAT Kimbrough, [place] - [facility] 03/26/2024 [...] Influenza, split virus, trivalent, preservative 2 completed Inder Kingsley MA null, [facility] 03/26/2024 11:43:19 Influenza, split virus, trivalent, preservative 4 completed Inder Kingsley MA null, [facility] 03/26/2024 11:43:19 Influenza, split virus, quadrivalent, PF 8 completed Inder Kingsley MA null, [facility] 03/26/2024 11:43:19 Past Encounters Encounter ID Performer Location Encounter Start Date Encounter Closed Date Diagnosis/Indication Diagnosis SNOMED-CT Code Diagnosis ICD10 Code Diagnosis Note [id number] Esteban Jerry MD [facility] [place] [address] [place] [address] 03/26/2024 11:24:20 03/26/2024 12:48:19 Pain in left arm 425239844 M79.602 Hyperlipidemia 92414301 E78.5 Screening for malignant neoplasm of prostate 810881941 Z12.5 Long-term drug therapy 132559844 Z79.899 Gout 62783755 M10.9 Chronic rhinitis 1671328 6 J31.0 Gastroesop hageal reflux disease without esophagitis 041476958 K21.9 [id number] Esteban Jerry MD [facility] (Adult Med) [address] [place] [address] 06/01/2024 09:55:57 06/01/2024 10:45:35 Morbid obesity 168227778 E66.01 Essential hypertension 84797952 I10 [id number] Diana Bell MA [facility] - [place] [address] [place] [address] 06/07/2024 09:56:45 06/07/2024 10:41:35 Essential hypertension 65633214 I10 [id number] Esteban Jerry MD [facility] - [place] [address] [place] [address] 06/21/2024 09:53:14 06/21/2024 10:15:36 Essential hypertension 18542175 I10 [id number] Esteban Jerry MD [facility] [place] [address] [place] [address] 08/13/2024 11:04:30 08/13/2024 12:29:53 Body mass index 30+ - obesity 165042388 Z68.41 Syncope 504609910 R55 Gastroesop hageal reflux disease without esophagitis 310431218 K21.9 Gout 18633110 M10.9 Cellulitis of face 2001 L03.856 [id number] Diana Bell MA [facility] - [place] [address] [place] [address] 09/24/2024 10:04:55 09/24/2024 11:09:42 Body mass index 30+ - obesity 982887552 Z68.42 Obesity 494105174 E66.9 Headache 72779062 R51.9 Anxiety 07723143 F41.9 Health Concerns Section Related Observation LastModified by Organization Detai ls LastModified Time None Recorded Concern Status LastModified by Organization Details LastModified Time None Recorded Advance Directives Directive Y: Payers Encounter Date Sequence Insurance Name Policy Number Policy White Covered Member ID White Member ID Guarantor Name 06/01/2024 1 [place] Bebeto Rasheed [id number] Bebeto Rasheed 06/01/2024 2 [employer] (MEDICARE SUPPLEMENT) Bebeto Rasheed [id number] Bebeto Rasheed 06/07/2024 1 [place] Bebeto Rasheed [id number] Bebeto Rasheed 06/07/2024 2 [employer] (MEDICARE SUPPLEMENT) Bebeto Rasheed [id number] Bebeto Rasheed 06/21/2024 1 [place] Bebeto Rasheed [id number] Bebeto Rasheed 06/21/2024 2 [employer] (MEDICARE SUPPLEMENT) Bebeto Rasheed [id number] Bebetojayden Rasheed 08/13/2024 1 [place] Bebeto Rasheed [id number] Bebeto Rasheed 08/13/2024 2 [employer] (MEDICARE SUPPLEMENT) Bebeto Rasheed [id number] Bebeto Rasheed Notes Date Note Type Note Provider Name and Address Organization Details Recorded Time 06/01/2024 text/html Then a dull headache and was found to be hypertensive Esteban Jerry MD Attn: Accounting[address] [facility], [place], [address], [facility] 07/01/2024 22:44:54 06/21/2024 text/html tolerating the medication short interval follow up on blood pressure Esteban Jerry MD Attn: Accounting[address] [facility], [place], [address], [facility] 06/30/2024 21:02:15 08/13/2024 text/html fall no fracture [...] sure Esteban Jerry MD Attn: Accounting[address] [facility], [place], [address], [facility] 08/13/2024 23:19:40
--- OUTSIDE RECORDS SUMMARY | 2024-09-28 14:34 | XMS_ITS | Data Portability ---
Author Organization [place] [facility], Main Office Address [address] [place] [address] Assessment Encounter Date Assessment Date Assessment LastModified by Organization Details LastModified Time 11/17/2022 11/17/2022 Assessment: Rhinitis Moderate OSAHS, AHI = 20 PLMD Plan: The following were reviewed and explained to the patient: primary care/referral note [facility] split night sleep study 08/05/22 [...] carrier. Patient will setup an appointment with [facility] for supplies and pressure adjustments. A [...] were reviewed and explained to the patient: [facility] split night sleep study 08/05/22 [...] carrier. Patient will setup an appointment with [facility] for supplies and pressure adjustments. A [...] were reviewed and explained to the patient: [facility] split night sleep study 08/05/22 [...] carrier. Patient will setup an appointment with [facility] for supplies and pressure adjustments. A [...] stable follow-up with me in 4 months Not available 03/18/2023 20:12:36 07/28/2023 07/28/2023 Will continue current therapy will follow-up in 4 months [email or web address] Not available 07/29/2023 13:43:16 Plan of Treatment Reminders Order Date Submit Date Provider Last Modified By Organization Details Last Modified Time Details Appointments None recorded. Lab iron + TIBC + ferritin, serum 2022 023 [facility], [address], [place], [address], 3 11:59:55 folate, RBC 2022 023 [facility], [address], [address], [place], [address], 3 11:59:59 vitamin B12, serum 2022 023 [facility], [address], [address], [place], [address], 3 11:59:59 ESR (erythrocyt e sedimentati on rate), blood 2022 023 [email or web address] [facility], [address], [address], [place], [address], 3 15:49:21 hemoglobin + hematocrit, blood 2022 023 [facility], [address], [address], [place], [address], 3 11:59:58 bun (blood urea nitrogen), serum or plasma 2022 023 [facility], [address], [address], [place], [address], 3 11:59:55 creatinine, serum or plasma 2022 023 [facility], [address], [address], [place], [address], 3 11:59:56 magnesium, serum or plasma 2022 023 [facility], [address], [address], [place], [address], 3 11:59:57 vitamin E, serum 2022 023 BRENDAPanelCl[facility], [address], [address], [place], [address], 3 12:00:00 vitamin B12, serum 2022 023 [facility], [address], [address], [place], [address], 3 05:39:36 hemoglobin + hematocrit, blood 2022 023 [facility], [address], [address], [place], [address], 3 05:39:34 vitamin B12, serum 2022 023 [email or web address] [employer] [facility], [address], [address], [place], [address], 4 14:19:43 hemoglobin + hematocrit, blood 2022 023 [email or web address] 25 [employer] [facility], [address], [address], [place], [address], 4 14:19:43 Referral None recorded. Procedures None recorded. Surgeries None recorded. Imaging None recorded. Medication Orders cyanocobala min (vit B-12) 1,000 mcg tablet 2022 023 [facility], [address] [place], [place], [id number], 3 10:05:28 cyanocobala min (vit B-12) 1,000 mcg tablet 2022 023 [id number], [address], [place], [place], [id number], 3 11:00:10 montelukast 10 mg tablet 2022 023 [email or web address] [facility] #70658, [address], [place], [id number], 3 11:17:08 Patient TargetsNo targets recorded. Patient InstructionsNo instructions recorded. Reason for Referral None Reported. Results Created Date Observation Date Name Description Value Unit Range Abnormal Flag Note LastModifiedBy Organization Detail LastModifiedTime 11/27/1912/02/2022 IRON, TIBC AND JERSON TIN PANEL iron, total 88 mcg/d L 50-180 normal Not Available [address], [address], 12/02/2022 11:59:55 11/27/19 23 12/02/2022 IRON, TIBC AND JERSON TIN PANEL iron binding capacity 333 mcg/d L_(ca lc) 250-42 5 normal Not Available [address], [address], 12/02/2022 11:59:55 11/27/19 23 12/02/2022 IRON, TIBC AND JERSON TIN PANEL % saturation 26 %_(ca lc) 20-48 normal Not Available [address], [address], 12/02/2022 11:59:55 11/27/19 23 12/02/2022 IRON, TIBC AND JERSON TIN PANEL ferritin 162 NG/mL 24-380 normal Not Available [address], [address], 12/02/2022 11:59:55 11/27/19 23 12/02/2022 UREA NITRO GEN (BUN) urea nitrogen (BUN) 24 mg/dL 7-25 normal Not Available [address], [address], 12/02/2022 11:59:55 11/27/19 23 12/02/2022 CREAT ININE creatinine 0.74 mg/dL 0.70-1 .35 normal Not Available [address], [address], 12/02/2022 11:59:56 11/27/19 23 12/02/2022 CREAT ININE eGFR 99 mL/mi n/1.7 3m2 > or = 60 normal The eGFR is based on the CKD-E PI 2020 equat ion. To calcu late the new eGFR from a previ ous Creat inmariana or Parker daniel, go to https :[email or web address] [email or web address] s/ kdoqi /gfr% 5Fcal culat or Not Available [facility] [address], [address], 12/02/2022 11:59:56 11/27/19 23 12/02/2022 MAGNE SIUM magnesium 1.9 mg/dL 1.5-2. 5 normal Not Available [facility] [address], [address], 12/02/2022 11:59:57 11/27/19 23 12/02/2022 SED RATE BY MODIF IED WESTAlex GALINDOREN sed rate by modified westtoriren 29 mm/h < or = 20 high Not Available [address], [address], 12/02/2022 11:59:58 11/27/19 23 12/02/2022 HEMOG LOBIN + HEMAT OCRIT hemoglobin 12.4 g/dL 13.2-1 7.1 low Not Available [facility] [address], [address], 12/02/2022 11:59:58 11/27/19 23 12/02/2022 HEMOG LOBIN + HEMAT OCRIT hematocrit 37.5 % 38.5-5 0.0 low Not Available [facility] [address], [address], 12/02/2022 11:59:58 11/27/19 23 12/02/2022 FOLAT E, RBC folate, RBC 736 NG/mL _RBC >280 normal Not Available [facility] [address], [address], 12/02/2022 11:59:59 11/27/19 23 12/02/2022 VITAM IN [...] pg/mL will have sympt oms. Not Available [employer] [address] [address] [place], [address], 12/02/2022 11:59:59 11/27/19 23 12/02/2022 VITAM IN [...] resul ts. See Note 1 Not Available [employer] [facility] [address] [address], [place], [address], 12/02/2022 12:00:00 11/27/19 23 12/02/2022 VITAM IN E (TOCO PHERO L) crnb-nqisi-n ocopherol 2.5 mg/L <4.4 See Note 1 Note 1 This test was devel oped and its cheryl tical perfo rmanc e halima cteri stics have been deter mined by [facility]. It has not been clear ed or appro mariam by the FDA. This assay has been valid ated pursu ant to the CLIA regul ation s and is used for clini yasmeen purpo ses. Not Available [employer] [facility] [address] [place], [address], 12/02/2022 12:00:00 02/19/20 23 02/19/2023 HEMOG LOBIN + HEMAT OCRIT hemoglobin 13.1 g/dL 13.2-1 7.1 low Not Available [address] [place], [address], 02/19/2023 05:39:34 02/19/2002/19/2023 HEMOG LOBIN + HEMAT OCRIT hematocrit 39.6 % 38.5-5 0.0 normal Not Available [address] [address] [place], [address], 02/19/2023 05:39:34 02/19/2002/19/2023 VITAM IN B12 vitamin B12 501 pg/mL 200-11 00 normal Not Available [address], [address], 02/19/2023 05:39:36 03/27/20 24 03/26/2024 XR, humer us No observ ation record ed. [email or web address] [facility] [address], [place], [address], 05/10/2024 14:54:41 03/27/20 24 03/26/2024 US, upper extre mity No observ ation record ed. [email or web address] [facility] [address], [place], [address], 05/10/2024 14:55:44 Result Notes None recorded. Problems Name Problem SNOMED Code Status Onset Date Resolution Date Notes Provider Name and Address Organization Details Recorded Time Periodic limb movement disorder 844811602 Active 2022 Devante Ocasio MD [address], [place], [address] , [employer] 09:55:43 Obstructive sleep apnea syndrome 03966982 Active 2022 Devante Ocasio MD [address], [place], [address] , [place] [employer] 3 10:16:08 Cobalamin deficiency 398293494 Active 2022 Devante Ocasio MD [address] [facility], [facility] [address], [place], [address] , [facility] [employer] [facility] [employer] [facility] 3 09:53:11 Anxiety state 133951130 Active Not Available [facility] 3 03:03:03 Dyslipidemia 141055460 Active Not Available [facility] 3 03:03:04 Cervical arthritis 275930626 Active 2020 Not Available [facility] 3 03:03:04 Premature ejaculation 86196616 Active Not Available [facility] 3 03:03:04 Hyperglycemia 66344392 Active 2021 Not Available [facility] 3 03:03:04 COVID-19 564852658 Active 2022 Not Available [facility] 3 03:03:04 Gout 09916701 Active Not Available [facility] 3 03:03:05 Wheezing 42956351 Active 2022 Syl Suarez RN [facility], [place] [employer] [facility] [employer] [facility] 3 17:41:41 Notes:Medical History: Anxie ty COVID [...] 6 Knee arthroscopy/s urgery completed Not Available [facility] 10/27/2022 02:55:59 6 repair of meniscus completed Not Available [facility] 10/27/2022 02:55:59 Imaging Results Imaging Date Name Status LastModified by Organiz ation Details LastModified Time 03/26/2024 XR, humerus completed [email or web address] [facility] [address] [facility] [address], [place], [address], 05/10/2024 14:54:41 03/26/2024 US, upper extremity completed [email or web address] [facility] [address], [place], [address], 05/10/2024 14:55:44 Procedure Notes None recorded. Medical [...] Not Available Vitals Date Recorded Body height Provider Name an d Address Organization Details Last Updated DateTime 11/17/2022 182.88 cm Libby Kolb MA [employer] 11/17/2022 09:44:37 Date Recorded Body mass index (BMI) Body weight Provider Name and Address Organization Details Last Updated DateTime 11/17/2022 46.7 kg/m2 919337.78 g Libby Kolb MA [employer] 11/17/2022 09:46:33 Date Recorded Body temperature Provider Name a nd Address Organization Details Last Updated DateTime 11/17/2022 98.4 [degF] Libby Kolb MA [employer] 11/17/2022 09:50:30 Date Recorded Heart rate Provider Name an d Address Organization Details Last Updated DateTime 11/17/2022 61 /min Libby Kolb MA [employer] 11/17/2022 09:50:49 Date Recorded Oxygen saturation Oxygen saturation in Arterial blood by Pulse oximetry Provider Name and Address Organization Details Last Updated DateTime 11/17/2022 96 % 96 % Libby Kolb MA [employer] 11/17/2022 09:50:52 Date Recorded Heart rate Provider Name an d Address Organization Details Last Updated DateTime 11/17/2022 61 /min Devante Ocasio MD [address], [address], [place], [address], [employer] 11/17/2022 10:08:15 Date Recorded Respiratory rate Provider Name a nd Address Organization Details Last Updated DateTime 11/17/2022 15 /min Devante Ocasio MD [address], [address], [place], [address], [employer] 11/17/2022 10:08:18 Date Recorded Body height Provider Name an d Address Organization Details Last Updated DateTime 12/14/2022 182.88 cm [facility]by Kolb [facility] [employer] [facility] 12/14/2022 09:39:36 Date Recorded Body mass index (BMI) Body weight Provider Name and Address Organization Details Last Updated DateTime 12/14/2022 47.5 kg/m2 440458.33 g Libby Kolb MA [place] [employer] [facility] [employer] [facility] 12/14/2022 09:41:44 Date Recorded Body temperature Provider Name a nd Address Organization Details Last Updated DateTime 12/14/2022 98.1 [degF] Libby Kolb MA [facility] [employer] [facility] 12/14/2022 09:43:30 Date Recorded Heart rate Provider Name an d Address Organization Details Last Updated DateTime 12/14/2022 65 /min Libby Kolb MA [facility] [employer] [facility] 12/14/2022 09:43:50 Date Recorded Oxygen saturation Oxygen saturation in Arterial blood by Pulse oximetry Provider Name and Address Organization Details Last Updated DateTime 12/14/2022 97 % 97 % Libby Kolb MA [facility] [employer] [facility] 12/14/2022 09:43:54 Date Recorded Heart rate Provider Name an d Address Organization Details Last Updated DateTime 12/14/2022 65 /min Devante Ocasio MD [address], [address], [address], [facility] [employer] [facility] 12/14/2022 10:12:57 Date Recorded Respiratory rate Provider Name a nd Address Organization Details Last Updated DateTime 12/14/2022 14 /min Devante Ocasio MD [address] [facility] [address], [place], [address], [facility] [employer] [facility] 12/14/2022 10:12:58 Date Recorded Body height Provider Name an d Address Organization Details Last Updated DateTime 03/15/2023 182.88 cm Libby Kolb MA [facility] [employer] [facility] 03/15/2023 10:43:28 Date Recorded Body mass index (BMI) Body weight Provider Name and Address Organization Details Last Updated DateTime 03/15/2023 47.6 kg/m2 866764.92 g Libby Kolb MA [facility] [employer] [facility] 03/15/2023 10:43:36 Date Recorded Body temperature Provider Name a nd Address Organization Details Last Updated DateTime 03/15/2023 98.5 [degF] Libby Kolb MA [facility] 03/15/2023 10:44:44 Date Recorded Heart rate Provider Name an d Address Organization Details Last Updated DateTime 03/15/2023 63 /min Devante Ocasio MD [address], [address], [place], [address], [facility] [employer] [facility] 03/15/2023 11:02:49 Date Recorded Oxygen saturation Oxygen saturation in Arterial blood by Pulse oximetry Provider Name and Address Organization Details Last Updated DateTime 03/15/2023 97 % 97 % Libby Kolb MA [facility] [employer] 03/15/2023 10:45:05 Date Recorded Respiratory rate Provider Name a nd Address Organization Details Last Updated DateTime 03/15/2023 13 /min Devante Ocasio MD [address] [employer], [address], [place], [address], [facility] [employer] [facility] 03/15/2023 11:02:31 Date Recorded Heart rate Provider Name an d Address Organization Details Last Updated DateTime 03/15/2023 63 /min Devante Ocasio MD [address] [employer], [address], [place], [address], [facility] [employer] [facility] 03/15/2023 11:02:47 Date Recorded Body height Provider Name an d Address Organization Details Last Updated DateTime 03/17/2023 182.88 cm Isa Pelayo RN [facility] [employer] [facility] 03/17/2023 10:04:50 Date Recorded Body mass index (BMI) Body weight Provider Name and Address Organization Details Last Updated DateTime 03/17/2023 47.7 kg/m2 414501.51 g Isa Pelayo RN [facility] [employer] 03/17/2023 10:07:31 Date Recorded Body temperature Provider Name a nd Address Organization Details Last Updated DateTime 03/17/2023 97.8 [degF] Isa Pelayo RN [facility] [employer] [facility] 03/17/2023 10:09:28 Date Recorded Heart rate Provider Name an d Address Organization Details Last Updated DateTime 03/17/2023 72 /min Isa Pelayo RN [place] [employer] [facility] [employer] [facility] 03/17/2023 10:09:31 Date Recorded Oxygen saturation Oxygen saturation in Arterial blood by Pulse oximetry Provider Name and Address Organization Details Last Updated DateTime 03/17/2023 98 % 98 % Isa Pelayo RN [facility] [employer] [facility] 03/17/2023 10:09:43 Date Recorded Body height Provider Name an d Address Organization Details Last Updated DateTime 07/28/[address] [facility] [employer] [facility] [employer] [facility] 07/28/2023 10:28:15 Date Recorded Body mass index (BMI) Body weight Provider Name and Address Organization Details Last Updated DateTime 07/28/2023 46.7 kg/m2 064062.78 g Muna Duron Roberto [employer] [facility] [employer] [facility] 07/28/2023 10:28:21 Date Recorded Body temperature Provider Name a nd Address Organization Details Last Updated DateTime 07/28/2023 97.8 [degF] Muna Duron Roberto [place] [employer] [facility] [employer] [facility] 07/28/2023 10:29:45 Date Recorded Heart rate Provider Name an d Address Organization Details Last Updated DateTime 07/28/2023 78 /min Muna Duron Roberto [employer] [facility] [employer] [facility] 07/28/2023 10:29:48 Date Recorded Systolic blood pressure Diastolic blood pressure Provider Name and Address Organization Details Last Updated DateTime 11/17/2022 140 mm[Hg] 82 mm[Hg] Libby Kolb MA [place] [employer] [facility] [employer] [facility] 11/17/2022 09:52:32 Date Recorded Systolic blood pressure Diastolic blood pressure Provider Name and Address Organization Details Last Updated DateTime 12/14/2022 140 mm[Hg] 82 mm[Hg] Libby Kolb MA [employer] [facility] [employer] [facility] 12/14/2022 09:45:57 Date Recorded Systolic blood pressure Diastolic blood pressure Provider Name and Address Organization Details Last Updated DateTime 03/15/2023 136 mm[Hg] 84 mm[Hg] Libby Kolb MA [place] [employer] [facility] [employer] [facility] 03/15/2023 10:46:31 Date Recorded Systolic blood pressure Diastolic blood pressure Provider Name and Address Organization Details Last Updated DateTime 03/17/2023 128 mm[Hg] 80 mm[Hg] Isa Pelayo RN [facility] [employer] [facility] 03/17/2023 10:09:17 Date Recorded Systolic blood pressure Diastolic blood pressure Provider Name and Address Organization Details Last Updated DateTime 07/28/2023 128 mm[Hg] 82 mm[Hg] DAGO Bahena [facility] [employer] [facility] 07/28/2023 10:31:19 Social History Question Answer Notes LastModified by Organization Details LastModified Time Tobacco Smoking Status Never Smoker DAGO Treadwell, [facility] [employer] [facility] 03/17/2023 10:04:16 Do You Have An Advance Directive? Yes [id number] Information not available 10/27/2022 What Is Your Level Of Alcohol Consumption? Moderate Patient Reported About 7 Beers Per Week. [id number] Information not available 10/27/2022 Are You Blind Or Do You Have Difficulty Seeing? No Information not available 03/17/2023 What Is Your Level Of Caffeine Consumption? Occasional [id number] Information not available 10/27/2022 How Much Tobacco Do You Chew? None [id number] Information not available 10/27/2022 In The 14 [...] Of Diet Are You Following? REGULAR [id number] Information not available 10/27/2022 Which Illicit Or Recreational Drugs Have You Used? None Information not available 03/17/2023 Do You Or Have You Ever Used E-cigarettes Or Vape? Never Used Electronic Cigarettes Information not available 03/17/2023 What Is The Highest Grade Or Level Of School You Have Completed Or The Highest Degree You Have Received? [id number] Information not available 03/17/2023 Do You Have [...] Do You Have A Medical Power Of [employer]? Yes Information not available 03/17/2023 Do You Have Moisture Problems In Your Home? No Information not available 03/17/2023 What Was The Date Of Your Most Recent Tobacco Screening? 07/28/2023 [email or web address] Information not available 07/28/2023 Have You Ever Been Counseled For Unhealthy Alcohol Use? No Information not available 03/17/2023 Do You Have Any Pets? Yes Information not available 03/17/2023 What Is Your Relationship Status? [id number] Information not available 10/27/2022 Do You Use Your Seat Belt Or Car Seat Routinely? Yes Information not available 03/17/2023 Do You Have Smoke And Carbon Monoxide Detectors In Your Home? Yes Information not available 03/17/2023 Are You Passively Exposed To Smoke? No Information not available 03/17/2023 Do You Or Have You Ever Used Smokeless Tobacco? Never Used Smokeless Tobacco [id number] Information not available 10/27/2022 Are There Any Smokers In Your House? No Information not available 03/17/2023 How Much Tobacco Do You Smoke? No [id number] Information not available 10/27/2022 What Types Of Sporting Activities Do You Participate In? None Information not available 03/17/2023 Do You Feel Stressed (tense, Restless, Nervous, Or Anxious, Or Unable To Sleep At Night)? [id number] Information not available 03/17/2023 Do You Use Any Illicit Or Recreational Drugs? No Information not available 03/17/2023 Do You Use Sunscreen Routinely? No Information not available 03/17/2023 Has Tobacco Cessation Counseling Been Provided? No Not Needed-guillaume flowers Smoked Information not available 03/17/2023 How Many [...] 03/17/2023 What is your exercise level? Occasional [id number] Information not available 10/27/2022 Mental Status Question Answer Note LastModified by Organization D etails LastModified Time Do you have difficulty concentrating, remembering or making decisions? No Information no t available 03/17/2023 Family History Relationship Description Onset Age of this Age Resolved Age Notes LastModified by Organization Details LastModified Time Father Diabetes mellitus 55 [id number] Not available 10/27/2022 02:56:03 Mother Chronic obstructive pulmonary disease 63 [email or web address] Not available 2022 10:04:12 Medical History Condition Response NERVE DISEASE N BLINDNESS N RHEUMATIC FEVER N KIDNEY STONES N BLADDER PROBLEMS N MRSA N OTHER # 1 N [...] N CHRONIC PAIN SYNDROME N HYPOTHYROIDISM N CONSTIPATION N CAROTID BLOCKAGE N BACK / NECK PROBLEMS N HAVE YOU BEEN HOSPITALIZED OR SEEN IN [facility] IN THE PAST YEAR ? N [...] high-dose, quadrivalent, PF 1 completed Not Available [facility] 10/27/2022 03:13:13 COVID-19, mRNA, LNP-S, PF, 100 mcg/0.5mL dose or 50 mcg/0.25mL dose 1 completed Not Available [facility] 10/27/2022 03:13:14 COVID-19, mRNA, LNP-S, PF, 100 mcg/0.5mL dose or 50 mcg/0.25mL dose 1 completed Not Available [facility] 10/27/2022 03:13:14 COVID-19, mRNA, LNP-S, PF, 100 mcg/0.5mL dose or 50 mcg/0.25mL dose 1 completed Not Available [facility] 10/27/2022 03:13:14 zoster, unspecified formulation 1 completed Not Available [facility] 10/27/2022 03:13:14 zoster, unspecified formulation 0 completed Not Available [facility] 10/27/2022 03:13:14 Influenza, high-dose, quadrivalent, PF 0 completed Not Available [facility] 10/27/2022 03:13:14 Influenza, high-dose, quadrivalent, PF 2 completed Not Available [facility] 10/27/2022 03:13:14 Influenza, high-dose, trivalent, PF 9 completed Not Available [facility] 10/27/2022 03:13:14 Influenza, split virus, trivalent, preservative 4 completed Not Available [facility] 10/27/2022 03:13:14 Influenza, split virus, quadrivalent, PF 8 completed Not Available [facility] 10/27/2022 03:13:14 Past Encounters Encounter ID Performer Location Encounter Start Date Encounter Closed Date Diagnosis/Indication Diagnosis SNOMED-CT Code Diagnosis ICD10 Code Diagnosis Note [id number] [facility] [place] Ed Benítez, [place] [address] 12/11/2020 00:00:00 12/11/2020 10:48:19 [id number] [facility] [place] Ed [address] [place] [address] 03/05/2021 00:00:00 03/05/2021 22:48:25 [id number] [facility] [place] T[place] [address] [place] [address] 08/11/2021 00:00:00 08/11/2021 21:56:49 [id number] [facility] [place] [address] [facility] y , [place] [address] 10/13/2021 00:00:00 10/13/2021 21:52:52 [id number] [facility] [place] [address] [facility] y , [place] [address] 12/15/2021 00:00:00 12/16/2021 08:08:32 [id number] [facility] Internal Med [address] [address] 06/24/2022 00:00:00 07/24/2022 10:35:02 [id number] [facility] [place] [address] [facility] y , [place] [address] 07/13/2022 00:00:00 07/13/2022 22:53:31 [id number] [facility] [place] [address] [place] [address] y , [place] [address] 08/10/2022 00:00:00 08/10/2022 13:50:35 [id number] [facility] [address] 11/17/2022 09:33:53 11/18/2022 08:35:49 Periodic limb movement disorder 841794352 G47.61 D50.8 E83.42 Obstructiv e sleep apnea syndrome 59275475 G47.33 [id number] Devante Ocasio MD [facility] [address] [address] 12/14/2022 09:31:33 12/15/2022 08:25:21 Obstructive sleep apnea syndrome 66259486 G47.33 Cobalamin deficiency 190 762119 E53.8 D64.9 [id number] Devante Ocasio MD [facility] [address] [address] 03/15/2023 10:26:20 03/16/2023 08:46:33 Obstructive sleep apnea syndrome 75799088 G47.33 Cobalamin deficiency 190 561185 E53.8 D64.9 [id number] Aman Jerry MD [facility] [place] [facility] [address] [facility] [place] [address] 03/17/2023 10:02:28 03/17/2023 10:36:20 Renewal of prescription 979189834 Z76.0 Dyslipidemia 994202465 E 78.5 Gout 78393884 M10.9 Obstructiv e sleep apnea syndrome 11385423 G47.33 [id number] Aman Jerry MD [facility] [address] [facility] [place] [address] 07/28/2023 10:16:14 07/28/2023 11:26:02 Dyslipidemia 018047738 E78.5 Anxiety state 880602895 F41.1 Cervical arthritis 95341 1000 M46.92 Gout 98357015 M10.9 Health Concerns Section Related Observation LastModified by Organization Detai ls LastModified Time None Recorded Concern Status LastModified by Organization Details LastModified Time None Recorded Advance Directives Directive Y: Payers Encounter Date Sequence Insurance Name Policy Number Policy White Covered Member ID White Member ID Guarantor Name 11/17/2022 1 [place] Bebeto Pérez Rasheed [id number] Bebeto Pérez Wili 11/17/2022 2 [employer] (MEDICARE SUPPLEMENT) Bebeto Pérez Wili [id number] Bebeto Pérez Rasheed 12/14/2022 1 [place] Beb[place] Rasheed [id number] Bebeto Pérez Rasheed 12/14/2022 2 [employer] (MEDICARE SUPPLEMENT) Bebeto Pérez Wili [id number] Bebeto Pérez Rasheed 03/15/2023 1 [place] Bebeto Rasheed [id number] Bebeto Pérez Rasheed 03/15/2023 2 [employer] (MEDICARE SUPPLEMENT) Bebeto Pérez Wili [id number] Bebeto Pérez Rasheed 03/17/2023 1 [place] Bebeto Rasheed [id number] Bebeto Rasheed 03/17/2023 2 [employer] (MEDICARE SUPPLEMENT) Bebeto Rasheed [id number] Bebeto Rasheed 07/28/2023 1 [place] Bebeto Rasheed [id number] Bebeto Rasheed 07/28/2023 2 [employer] (MEDICARE SUPPLEMENT) Bebeto Rasheed [id number] Bebeto Rasheed Notes Date Note Type Note Provider Name and Address Organization Details Recorded Time 11/17/2022 text/html Primary care/Ref erring provider: Aman Jerry MD [facility] split night sleep study 08/05/22 [...] moderate chance of dozing. Devante Ocasio MD [address] [place] [address], [phone], [facility] [employer] [facility] 11/17/2022 10:25:25 12/14/2022 text/html Primary care/Ref erring provider: Aman Jerry MD During the [facility] split night sleep study on [...] dreams: yes, act like working in the [email or web address] with sleep onset: noDifficulty with sleep maintenance: [...] moderate chance of dozing. Devante Ocasio MD [address] [place] [address], [facility] [address], [place], [address], [facility] [employer] 12/14/2022 10:13:39 03/15/2023 text/html Primary care/Ref erring provider: Aman Jerry MD During the [facility] split night sleep study on [...] dreams: yes, act like working in the farmDifficulty with sleep onset: noDifficulty with sleep maintenance: [...] of dozing. Devante Ocasio MD [address], [address], [place], [address], [facility] [employer] 03/15/2023 11:02:53 03/17/2023 text/html 1. Gout no flare -ups. 2. Rhinitis about the same. 3. Dyspnea better. 4. Hyperlipidemia trying to follow diet. 5. Hyperlipidemia tries to watch diet 6. Obesity not successful who weight 7. Sleep apnea CPAP now bloating a lot Aman Jerry MD [address], [address], [place], [address], [employer] [facility] 03/18/2023 20:13:12 07/28/2023 text/html Dyslipidemia tra michelle follow low-fat diet anxiety has been stable his arthritis is neck doing fine sleep apnea okay gout no red hot swollen joints needs to lose a little weight actually feels good Aman Jerry MD [address] [facility], [address], [place], [address], [employer] [facility] 07/29/2023 13:43:32
--- OUTSIDE RECORDS SUMMARY | 2024-09-28 14:34 | XMS_ITS | CONTINUITY OF CARE DOCUMENT ---
Author Name shirley watson Address Unknown Organization [facility] Address [address] [facility] [address] [place] [address] Phone [phone] Care Team Providers Care Paperback Machine Operator Name Role Phone Nakul Moeller MD Unavailable INSURANCE PROVIDERS Payer name Policy type / Coverage type Paul red republican ID [id number] PAY [id number]
== END 2024-09-28 14:26 | disposition home or self-care (01) ==
LOC: ANHIMG 14:26
PROVIDERS: PCP Internal Medicine; Visit Provider Internal Medicine
DX: E04.1 Nontoxic single thyroid nodule (principal); R90.82 White matter disease, unspecified
CPT/HCPCS: 76536

== ENCOUNTER 2024-09-30 09:50 | Outpatient (CLI) | payer MEDICARE, SELFPAY ==
--- NOTE | ~2024-09-30 | MR_ITS ---
EXAMINATION: MR brain/brain stem wo/w con DATE: 09/30/2024 10:40 INDICATION: Headache TECHNIQUE: Magnetic resonance imaging (MRI) of the brain and brainstem was performed without and with 15 mL Multihance intravenous contrast. Sequences included sagittal and axial T1-weighted SE, axial d iffusion-weighted FS SE, axial 3D SWAN, axial T2-weighted FLAIR, and axial T2-weighted FSE. Postcontr ast axial and coronal T1-weighted SE was obtained. Apparent diffusion coefficient (ADC) maps were cre ated. COMPARISON: Head CT dated 08/05/2024 FINDINGS: There are no areas of restricted diffusion to suggest acute infarction. No intracranial hemorrhage or abnormal intracranial mass lesion. There are scattered areas of nonspecific increased T2-weighted si gnal intensity in the cerebral white matter, predominantly involving the deep and periventricular whi te matter. There are no intraparenchymal signal abnormalities seen on the other pulse sequences. The ventricles are symmetric and normal in size. There are no abnormal extra-axial fluid collections. Azam w voids are seen in the cerebral arteries on the T2-weighted sequences consistent with their expected patency. Visualized orbits and soft tissues are unremarkable. Mild mucosal thickening the ethmoid si nuses. There is rightward deviation of the nasal septum. There are no areas of abnormal enhancement o n the post contrast images. IMPRESSION: 1. No acute intracranial process or abnormally enhancing brain lesions. 2. Mild scattered nonspecific white matter T2 hyperintensity which within normal limits for age and c onsistent with chronic small vessel ischemic disease. Reviewed, dictated and finalized at location A. [employer] IMPRESSION: 1. No acute intracranial process or abnormally enhancing brain lesions. 2. Mild scattered nonspecific white matter T2 hyperintensity which within cathleen l limits for age and consistent with chronic small vessel ischemic disease.
--- OUTSIDE RECORDS SUMMARY | 2024-09-30 09:55 | XMS_ITS | Data Portability ---
Author Organization [place] [facility], Main Office Address [address] [place] [address] Assessment Encounter Date Assessment Date Assessment LastModified by Organization Details LastModified Time 11/17/2022 11/17/2022 Assessment: Rhinitis Moderate OSAHS, AHI = 20 PLMD Plan: The following were reviewed and explained to the patient: primary care/referral note [facility] split night sleep study 08/05/22 AHI = [...] carrier. Patient will setup an appointment with [facility] for supplies and pressure adjustments. A [...] were reviewed and explained to the patient: [facility] split night sleep study 08/05/22 AHI = [...] carrier. Patient will setup an appointment with [facility] for supplies and pressure adjustments. A [...] were reviewed and explained to the patient: [facility] split night sleep study 08/05/22 AHI = [...] carrier. Patient will setup an appointment with [facility] for supplies and pressure adjustments. A [...] current therapy will follow-up in 4 months Not available 07/29/2023 13:43:16 Plan of Treatment Reminders Order Date Submit Date Provider Last Modified By Organization Details Last Modified Time Details Appointments None recorded. Lab iron + TIBC + ferritin, serum 2022 023 [facility], [address], [place], [address], 3 11:59:55 folate, RBC 2022 023 [facility], [address], [address], [place], [address], 3 11:59:59 vitamin B12, serum 2022 023 [employer] [facility], [address], [address], [place], [address], 3 11:59:59 ESR (erythrocyt e sedimentati on rate), blood 2022 023 [email or web address] [facility], [address], [address], [place], [address], 3 15:49:21 hemoglobin + hematocrit, blood 2022 023 Zeolife [facility], [address], [address], [place], [address], 3 11:59:58 bun (blood urea nitrogen), serum or plasma 2022 023 [employer] [facility], [address], [address], [place], [address], 3 11:59:55 creatinine, serum or plasma 2022 023 [employer] [facility], [address], [address] [place], [place], [address], 3 11:59:56 magnesium, serum or plasma 2022 023 [employer] [facility], [address], [address] [place], [place], [address], 3 11:59:57 vitamin E, serum 2022 023 [employer] [facility], [address], [address], [place], [address], 3 12:00:00 vitamin B12, serum 2022 023 Zeolife [facility], [address], [address], [place], [address], 3 05:39:36 hemoglobin + hematocrit, blood 2022 023 [facility]olife [facility], [address], [place], [place], [address], 3 05:39:34 vitamin B12, serum 2022 023 [email or web address] 25 [employer] [facility], [address], [address], [place], [address], 4 14:19:43 hemoglobin + hematocrit, blood 2022 023 [email or web address] 25 [employer] [facility], [address], [place] [place], [place], [address], 4 14:19:43 Referral None recorded. Procedures None recorded. Surgeries None recorded. Imaging None recorded. Medication Orders cyanocobala min (vit B-12) 1,000 mcg tablet 2022 023 [facility], [address], [place], [id number], 3 10:05:28 cyanocobala min (vit B-12) 1,000 mcg tablet 2022 023 [facility]00646, [address] [facility] [address] [facility], [place], [place], [id number], 3 11:00:10 montelukast 10 mg tablet 2022 023 [email or web address] [facility]05972, [address], [place], [id number], 3 11:17:08 Patient TargetsNo targets recorded. Patient InstructionsNo instructions recorded. Reason for Referral None Reported. Results Created Date Observation Date Name Description Value Unit Range Abnormal Flag Note LastModifiedBy Organization Detail LastModifiedTime 11/27/1912/02/2022 IRON, TIBC AND JERSON TIN PANEL iron, total 88 mcg/d L 50-180 normal Not Available [address], [address], 12/02/2022 11:59:55 11/27/19 23 12/02/2022 IRON, TIBC AND JERSON TIN PANEL iron binding capacity 333 mcg/d L_(ca lc) 250-42 5 normal Not Available [address], [address], 12/02/2022 11:59:55 11/27/19 23 12/02/2022 IRON, TIBC AND JERSON TIN PANEL % saturation 26 %_(ca lc) 20-48 normal Not Available [address], [address], 12/02/2022 11:59:55 11/27/19 23 12/02/2022 IRON, TIBC AND JERSON TIN PANEL ferritin 162 NG/mL 24-380 normal Not Available [address], [address], 12/02/2022 11:59:55 11/27/19 23 12/02/2022 UREA NITRO GEN (BUN) urea nitrogen (BUN) 24 mg/dL 7-25 normal Not Available [address], [address], 12/02/2022 11:59:55 11/27/19 23 12/02/2022 CREAT ININE creatinine 0.74 mg/dL 0.70-1 .35 normal Not Available [address], [address], 12/02/2022 11:59:56 11/27/19 23 12/02/2022 CREAT ININE eGFR 99 mL/mi n/1.7 3m2 > or = 60 normal The eGFR is based on the CKD-E PI 2020 equat ion. To calcu late the new eGFR from a previ ous Creat inmariana or Parker daniel, go to https :[email or web address] [email or web address] [email or web address] montiel s/ kdoqi /gfr% 5Fcal culat or Not Available [facility] [address], [address], 12/02/2022 11:59:56 11/27/19 23 12/02/2022 MAGNE SIUM magnesium 1.9 mg/dL 1.5-2. 5 normal Not Available [facility] [address], [address], 12/02/2022 11:59:57 11/27/19 23 12/02/2022 SED RATE BY MODIF IED WESTCristian GALINDOREN sed rate by modified westtoriren 29 mm/h < or = 20 high Not Available [address], [address], 12/02/2022 11:59:58 11/27/19 23 12/02/2022 HEMOG LOBIN + HEMAT OCRIT hemoglobin 12.4 g/dL 13.2-1 7.1 low Not Available [facility] [address], [address], 12/02/2022 11:59:58 11/27/19 23 12/02/2022 HEMOG LOBIN + HEMAT OCRIT hematocrit 37.5 % 38.5-5 0.0 low Not Available [facility] [address], [address], 12/02/2022 11:59:58 11/27/19 23 12/02/2022 FOLAT E, RBC folate, RBC 736 NG/mL _RBC >280 normal Not Available [facility] [address], [address], 12/02/2022 11:59:59 11/27/19 23 12/02/2022 VITAM IN [...] pg/mL will have sympt oms. Not Available [employer] [place] [address] [place], [address], 12/02/2022 11:59:59 11/27/19 23 12/02/2022 VITAM IN [...] resul ts. See Note 1 Not Available [employer] [facility] [address], [place], [address], 12/02/2022 12:00:00 11/27/19 23 12/02/2022 VITAM IN E (TOCO PHERO L) [id number]-[id number] ocopherol 2.5 mg/L <4.4 See Note 1 Note 1 This test was devel oped and its cheryl tical perfo rmanc e halima cteri stics have been deter mined by [facility]. It has not been clear ed or appro mariam by the FDA. This assay has been valid ated pursu ant to the CLIA regul ation s and is used for clini yasmeen purpo ses. Not Available [employer] [facility] [address] [place], [address], 12/02/2022 12:00:00 02/19/20 23 02/19/2023 HEMOG LOBIN + HEMAT OCRIT hemoglobin 13.1 g/dL 13.2-1 7.1 low Not Available [address] [place], [address], 02/19/2023 05:39:34 02/19/2002/19/2023 HEMOG LOBIN + HEMAT OCRIT hematocrit 39.6 % 38.5-5 0.0 normal Not Available [address] [address] [place], [address], 02/19/2023 05:39:34 02/19/2002/19/2023 VITAM IN B12 vitamin B12 501 pg/mL 200-11 00 normal Not Available [address], [address], 02/19/2023 05:39:36 03/27/20 24 03/26/2024 XR, humer us No observ ation record ed. [email or web address] [facility] [address], [place], [address], 05/10/2024 14:54:41 03/27/20 24 03/26/2024 US, upper extre mity No observ ation record ed. [email or web address] [facility] [address], [place], [address], 05/10/2024 14:55:44 Result Notes None recorded. Problems Name Problem SNOMED Code Status Onset Date Resolution Date Notes Provider Name and Address Organization Details Recorded Time Periodic limb movement disorder 636804196 Active 2022 Devante Ocasio MD [address], [place], [address] , [facility] 09:55:43 Obstructive sleep apnea syndrome 07520391 Active 2022 Devante Ocasio MD [address], [place], [address] , [place] [facility] 3 10:16:08 Cobalamin deficiency 011170216 Active 2022 Devante Ocasio MD [address] [facility], [place], [address] , [facility] [employer] [facility] [employer] [facility] 3 09:53:11 Anxiety state 174833006 Active Not Available [facility] 3 03:03:03 Dyslipidemia 483215785 Active Not Available [facility] 3 03:03:04 Cervical arthritis 502841372 Active 2020 Not Available [facility] 3 03:03:04 Premature ejaculation 61145575 Active Not Available [facility] 3 03:03:04 Hyperglycemia 43981800 Active 2021 Not Available [facility] 3 03:03:04 COVID-19 241261694 Active 2022 Not Available [facility] 3 03:03:04 Gout 07206557 Active Not Available [facility] 3 03:03:05 Wheezing 49098535 Active 2022 Syl Suarez RN [facility] [place], [place] [employer] [facility] [employer] [facility] 3 17:41:41 Notes:Medical History: Anxie ty COVID [...] 6 Knee arthroscopy/s urgery completed Not Available [facility] 10/27/2022 02:55:59 6 repair of meniscus completed Not Available [facility] 10/27/2022 02:55:59 Imaging Results Imaging Date Name Status LastModified by Organiz ation Details LastModified Time 03/26/2024 XR, humerus completed [facility] [address], [place], [address], 05/10/2024 14:54:41 03/26/2024 US, upper extremity completed [email or web address] [facility] [address], [place], [address], 05/10/2024 14:55:44 Procedure Notes None recorded. Medical [...] Updated DateTime 3 182.88 cm 46.7 kg/m2 030371. 78 g 98.4 [degF] 61 /min 96 % 96 % 140 mm[Hg] 82 mm[Hg] Libby Kolb MA [place] [employer] [facility] [employer] 3 09:52:32 Date Recorded Heart rate Respiratory rate Provider N lesli and Address Organization Details Last Updated DateTime 11/17/2022 61 /min 15 /min Devante Ocasio MD [address], [place] [address], [place], [address] [employer] [facility] [employer] 11/17/2022 10:08:18 Date Recorded Body height Body mass index (BMI) Body weight Body temperature Heart rate Oxygen saturation Oxygen saturation in Arterial blood by Pulse oximetry Systolic blood pressure Diastolic blood pressure Provider Name and Address Organization Details Last Updated DateTime 3 182.88 cm 47.5 kg/m2 892513. 33 g 98.1 [degF] 65 /min 97 % 97 % 140 mm[Hg] 82 mm[Hg] Libby Kolb MA [place] [employer] [facility] 3 09:45:57 Date Recorded Heart rate Respiratory rate Provider N lesli and Address Organization Details Last Updated DateTime 12/14/2022 65 /min 14 /min Devante Ocasio MD [address], [address] [address], [place], [address], [place] [employer] [facility] [employer] [facility] 12/14/2022 10:12:58 Date Recorded Body height Body mass index (BMI) Body weight Body temperature Oxygen saturation Oxygen saturation in Arterial blood by Pulse oximetry Systolic blood pressure Diastolic blood pressure Provider Name and Address Organization Details Last Updated DateTime 3 182.88 cm 47.6 kg/m2 274368. 92 g 98.5 [degF] 97 % 97 % 136 mm[Hg] 84 mm[Hg] Libby Kolb MA [facility] [employer] [facility] 3 10:46:31 Date Recorded Heart rate Respiratory rate Heart rate Provider Name and Address Organization Details Last Updated DateTime 03/15/2023 63 /min 13 /min 63 /min Devante Ocasio MD [address] [facility], [place], [address], [facility] [employer] [facility] 03/15/2023 11:02:47 Date Recorded Body height Body mass index (BMI) Body weight Body temperature Heart rate Oxygen saturation Oxygen saturation in Arterial blood by Pulse oximetry Systolic blood pressure Diastolic blood pressure Provider Name and Address Organization Details Last Updated DateTime 182.88 cm 47.7 kg/m2 968729. 51 g 97.8 [degF] 72 /min 98 % 98 % 128 mm[Hg] 80 mm[Hg] Isa Pelayo RN [facility] [employer] [facility] 3 10:09:17 Date Recorded Body height Body mass index (BMI) Body weight Body temperature Heart rate Systolic blood pressure Diastolic blood pressure Provider Name and Address Organization Details Last Updated DateTime 182.88 cm 46.7 kg/m2 385026. 78 g 97.8 [degF] 78 /min 128 mm[Hg] 82 mm[Hg] DAGO Bahena [facility] [employer] [facility] 3 10:31:19 Social History Question Answer Notes LastModified by Organization Details LastModified Time Tobacco Smoking Status Never Smoker DAGO Treadwell null, [facility] [employer] [facility] 03/17/2023 10:04:16 Do You Have An Advance Directive? Yes [id number] Information not available 10/27/2022 What Is Your Level Of Alcohol Consumption? Moderate Patient Reported About 7 Beers Per Week. [id number] Information not available 10/27/2022 Are You Blind Or Do You Have Difficulty Seeing? No Information not available 03/17/2023 What Is Your Level Of Caffeine Consumption? Occasional [id number] Information not available 10/27/2022 How Much Tobacco Do You Chew? None [id number] Information not available 10/27/2022 In The 14 [...] Of Diet Are You Following? REGULAR [id number] Information not available 10/27/2022 Which Illicit Or Recreational Drugs Have You Used? None Information not available 03/17/2023 Do You Or Have You Ever Used E-cigarettes Or Vape? Never Used Electronic Cigarettes Information not available 03/17/2023 What Is The Highest Grade Or Level Of School You Have Completed Or The Highest Degree You Have Received? [id number] Information not available 03/17/2023 Do You Have [...] Do You Have A Medical Power Of Diesel Electrician? Yes Information not available 03/17/2023 Do You Have Moisture Problems In Your Home? No Information not available 03/17/2023 What Was The Date Of Your Most Recent Tobacco Screening? 07/28/2023 [email or web address] Information not available 07/28/2023 Have You Ever Been Counseled For Unhealthy Alcohol Use? No Information not available 03/17/2023 Do You Have Any Pets? Yes Information not available 03/17/2023 What Is Your Relationship Status? [id number] Information not available 10/27/2022 Do You Use Your Seat Belt Or Car Seat Routinely? Yes Information not available 03/17/2023 Do You Have Smoke And Carbon Monoxide Detectors In Your Home? Yes Information not available 03/17/2023 Are You Passively Exposed To Smoke? No Information not available 03/17/2023 Do You Or Have You Ever Used Smokeless Tobacco? Never Used Smokeless Tobacco [id number] Information not available 10/27/2022 Are There Any Smokers In Your House? No Information not available 03/17/2023 How Much Tobacco Do You Smoke? No [id number] Information not available 10/27/2022 What Types Of Sporting Activities Do You Participate In? None Information not available 03/17/2023 Do You Feel Stressed (tense, Restless, Nervous, Or Anxious, Or Unable To Sleep At Night)? [id number] Information not available 03/17/2023 Do You Use [...] 03/17/2023 What is your exercise level? Occasional [id number] Information not available 10/27/2022 Mental Status Question Answer Note LastModified by Organization D etails LastModified Time Do you have difficulty concentrating, remembering or making decisions? No Information no t available 03/17/2023 Family History Relationship Description Onset Age of this Age Resolved Age Notes LastModified by Organization Details LastModified Time Father Diabetes mellitus 55 [id number] Not available 10/27/2022 02:56:03 Mother Chronic obstructive [...] HAVE YOU BEEN HOSPITALIZED OR SEEN IN [facility] IN THE PAST YEAR ? N [...] high-dose, quadrivalent, PF 1 completed Not Available [facility] 10/27/2022 03:13:13 COVID-19, mRNA, LNP-S, PF, 100 mcg/0.5mL dose or 50 mcg/0.25mL dose 1 completed Not Available [facility] 10/27/2022 03:13:14 COVID-19, mRNA, LNP-S, PF, 100 mcg/0.5mL dose or 50 mcg/0.25mL dose 1 completed Not Available [facility] 10/27/2022 03:13:14 COVID-19, mRNA, LNP-S, PF, 100 mcg/0.5mL dose or 50 mcg/0.25mL dose 1 completed Not Available [facility] 10/27/2022 03:13:14 zoster, unspecified formulation 1 completed Not Available [facility] 10/27/2022 03:13:14 zoster, unspecified formulation 0 completed Not Available [facility] 10/27/2022 03:13:14 Influenza, high-dose, quadrivalent, PF 0 completed Not Available [facility] 10/27/2022 03:13:14 Influenza, high-dose, quadrivalent, PF 2 completed Not Available [facility] 10/27/2022 03:13:14 Influenza, high-dose, trivalent, PF 9 completed Not Available [facility] 10/27/2022 03:13:14 Influenza, split virus, trivalent, preservative 4 completed Not Available [facility] 10/27/2022 03:13:14 Influenza, split virus, quadrivalent, PF 8 completed Not Available [facility] 10/27/2022 03:13:14 Past Encounters Encounter ID Performer Location Encounter Start Date Encounter Closed Date Diagnosis/Indication Diagnosis SNOMED-CT Code Diagnosis ICD10 Code Diagnosis Note [id number] [facility] [place] [address] [facility] y , [place] [address] 12/11/2020 00:00:00 12/11/2020 10:48:19 [id number] [facility] [place] [address] [place] [address] y , [place] [address] 03/05/2021 00:00:00 03/05/2021 22:48:25 [id number] [facility] [place] [address] [place] [address] y , [place] [address] 08/11/2021 00:00:00 08/11/2021 21:56:49 [id number] [facility] [place] [address] [place] [address] [place] [address] 10/13/2021 00:00:00 10/13/2021 21:52:52 [id number] [facility] [place] [address] [place] [address] [place] [address] 12/15/2021 00:00:00 12/16/2021 08:08:32 [id number] [facility] [address] [place] [address] 06/24/2022 00:00:00 07/24/2022 10:35:02 [id number] [facility] [place] [address] [place] [address] [place] [address] 07/13/2022 00:00:00 07/13/2022 22:53:31 [id number] [facility] [place] [address] [place] [address] [place] [address] 08/10/2022 00:00:00 08/10/2022 13:50:35 [id number] Devante Ocasio MD [address] [address] 11/17/2022 09:33:53 11/18/2022 08:35:49 Periodic limb movement disorder 335912205 G47.61 D50.8 E83.42 Obstructiv e sleep apnea syndrome 46358551 G47.33 [id number] Devante Ocasio MD [address] [address] 12/14/2022 09:31:33 12/15/2022 08:25:21 Obstructive sleep apnea syndrome 78241689 G47.33 Cobalamin deficiency 190 064827 E53.8 D64.9 [id number] Devante Ocasio MD [address] [address] 03/15/2023 10:26:20 03/16/2023 08:46:33 Obstructive sleep apnea syndrome 57103336 G47.33 Cobalamin deficiency 190 882234 E53.8 D64.9 [id number] Aman Jerry MD [facility] [place] [address] [place] [address] [place] [address] 03/17/2023 10:02:28 03/17/2023 10:36:20 Renewal of prescription 550622389 Z76.0 Dyslipidemia 982590684 E 78.5 Gout 27285105 M10.9 Obstructiv e sleep apnea syndrome 83982679 G47.33 [id number] Aman Jerry MD [facility] Internal [facility] [place] [facility] [address] [place] [address] 07/28/2023 10:16:14 07/28/2023 11:26:02 Dyslipidemia 799895127 E78.5 Anxiety state 624057187 F41.1 Cervical arthritis 92250 1000 M46.92 Gout 36832126 M10.9 Health Concerns Section Related Observation LastModified by Organization Detai ls LastModified Time None Recorded Concern Status LastModified by Organization Details LastModified Time None Recorded Advance Directives Directive Y: Payers Encounter Date Sequence Insurance Name Policy Number Policy White Covered Member ID White Member ID Guarantor Name 11/17/2022 1 [place] Bebeto Rasheed [id number] Bebeto Rasheed 11/17/2022 2 [employer] (MEDICARE SUPPLEMENT) Bebeto Rasheed [id number] Bebeto Rasheed 12/14/2022 1 [place] Bebeto Rasheed [id number] Bebeto Rasheed 12/14/2022 2 [employer] (MEDICARE SUPPLEMENT) Bebeto Rasheed [id number] Bebeto Rasheed 03/15/2023 1 [place] Bebeto Rasheed [id number] Bebeto Rasheed 03/15/2023 2 [employer] (MEDICARE SUPPLEMENT) Bebeto Rasheed [id number] Bebeto Rasheed 03/17/2023 1 [place] Bebeto Rasheed [id number] Bebeto Rasheed 03/17/2023 2 [employer] (MEDICARE SUPPLEMENT) Bebeto Rasheed [id number] Bebeto Rasheed 07/28/2023 1 [place] Bebeto Rasheed [id number] Bebeto Rasheed 07/28/2023 2 [employer] (MEDICARE SUPPLEMENT) Bebeto Rasheed [id number] Bebeto Rasheed Notes Date Note Type Note Provider Name and Address Organization Details Recorded Time 11/17/2022 text/html Primary care/Ref erring provider: Aman Jerry MD [facility] split night sleep study 08/05/22 AHI = [...] moderate chance of dozing. Devante Ocasio MD [address] [place] [address], [place], [address], [place] [facility] [employer] 11/17/2022 10:25:25 12/14/2022 text/html Primary care/Ref erring provider: Aman Jerry MD During the [facility] split night sleep study on 08/05/22, AHI [...] dreams: yes, act like working in the farmDiCardoc with sleep onset: noDifficulty with sleep maintenance: [...] moderate chance of dozing. Devante Ocasio MD [address] [place] [address], [address], [facility] 12/14/2022 10:13:39 03/15/2023 text/html Primary care/Ref erring provider: Aman Jerry MD During the [facility] split night sleep study on 08/05/22, AHI [...] dreams: yes, act like working in the [employer] with sleep onset: noDifficulty with sleep maintenance: [...] Ocasio MD [address], [place], [address], [facility] [employer] 03/15/2023 11:02:53 03/17/2023 text/html 1. Gout no flare -ups. 2. Rhinitis about the same. 3. Dyspnea better. 4. Hyperlipidemia trying to follow diet. 5. Hyperlipidemia tries to watch diet 6. Obesity not successful who weight 7. Sleep apnea CPAP now bloating a lot Aman Jerry MD [address], [place], [address], [facility] [employer] 03/18/2023 20:13:12 07/28/2023 text/html Dyslipidemia tra michelle follow low-fat diet anxiety has been stable his arthritis is neck doing fine sleep apnea okay gout no red hot swollen joints needs to lose a little weight actually feels good Aman Jerry MD [address], [place], [address], [facility] [employer] 07/29/2023 13:43:32
--- OUTSIDE RECORDS SUMMARY | 2024-09-30 09:55 | XMS_ITS | Data Portability ---
Author Organization [facility] JENNIFER [place] Address [address] [place] [address] Care Team Providers Care Soda Fountain Manager Name Role Phone ESTEBAN JERRY Primary Care Provider Assessment Encounter Date Assessment Date Assessment LastModified by Organization Details LastModified Time 06/01/2024 06/01/2024 we will start losartan 50 HCTZ H 12.5 blood pressure check in a week see me in 2-3 weeks I have recommended he get CT scan of the head he has refused healthy lifestyle care instructions also discussed [email or web address] Not available 07/01/2024 22:44:38 06/21/2024 06/21/2024 blood pressure under better control continue current therapy he will keep his regular follow up with me [email or web address] Not available 06/30/2024 21:01:57 08/13/2024 08/13/2024 labs from hospital reviewed. Obtain event monitor echocardiogram carotid duplex he needs to use his CPAP regularly he has not been using it he will keep his regular [email or web address] Not available 08/13/2024 23:19:00 Plan of Treatment Reminders Order Date Submit Date Provider Last Modified By Organization Details Last Modified Time Details Appointments ANY 15 2024 09:30A Usha Jerry MD Not available Not available Not available Lab None recorded. Referral None recorded. Procedures None recorded. Surgeries None recorded. Imaging event monitor - 30 day event monitor 2023 024 [facility] (Cardiology & Emg), [address], [place], [address], 09/28/2024 04:59:29 US, echocardi ogram 2023 024 [facility] (Cardiology & Emg), [address] [facility] [address] [facility], [place], [address], 08/30/2024 17:51:04 US, duplex, carotid artery - 4 be there at 130pm. 2023 024 [facility] (Imaging), [address] [place] [address] [address], [place], [address], 09/02/2024 19:36:18 Medication Orders losartan 50 mg-hydroc hlorothia zide 12.5 mg tablet 2023 [id number], [address] [facility], [place], [place], [id number], 06/07/2024 11:08:02 Patient TargetsNo targets recorded. Patient Instructions Encounter Date Encounter Id Patient Instructions Last Modified By Organization Details Last Modified Time 06/01/2024 [id number] A healthy lifestyle: care instructions Not available 06/01/2024 11:34:19 Reason for Referral None Reported. Results Created Date Observation Date Name Description Value Unit Range Abnormal Flag Note LastModifiedBy Organization Detail LastModifiedTime 08/05/2008/05/2024 XR, humer us No observ ation record ed. [address] [address], [place], [address], 08/05/2024 22:00:01 08/05/20 24 08/05/2024 CT, brain , w/o contr ast No observ ation record ed. [address] [address], [place], [address], 08/06/2024 09:39:16 08/05/20 24 08/05/2024 CT, face, w/ contr ast No observ ation record ed. [address], [place], [address], 08/06/2024 09:45:08 08/05/20 24 08/05/2024 CT, cervi yasmeen spine , w/o contr ast No observ ation record ed. [address], [place], [address], 08/06/2024 10:39:35 08/13/20 24 04/28/2022 colon oscop y proce dure (PROC ) No observ ation record ed. [address], [place], [address], 08/14/2024 16:21:28 08/14/20 24 08/04/2022 exerc ise stres s test No observ ation record ed. [address], [place], [address], 08/14/2024 12:32:49 08/30/19 25 08/30/2024 US, echoc ardio gram No observ ation record ed. [address], [place], [address], 09/12/2024 11:32:10 09/02/19 25 08/31/2024 US, duple x, carot id arter y No observ ation record ed. [address], [place], [address], 09/12/2024 11:32:11 09/03/19 25 08/31/2024 US, duple x, carot id arter y No observ ation record ed. [address], [place], [address], 09/12/2024 11:32:11 09/29/19 25 09/28/2024 US, thyro id No observ ation record ed. [address], [place], [address], 09/29/2024 00:20:17 09/29/19 25 09/28/2024 US, thyro id No observ ation record ed. [address], [place], [address], 09/29/2024 11:17:01 Result Notes None recorded. Problems Name Problem SNOMED Code Status Onset Date Resolution Date Notes Provider Name and Address Organization Details Recorded Time Pain in left arm 298048525 Active 2023 Diana Bell MA null, [place] - [facility] 4 12:44:18 Gastroesophage al reflux disease without esophagitis 734300360 Active 2023 Esteban Jerry MD Attn: Tiffanie luna,[address] [facility], [place], [address], [place] [facility] 4 21:09:54 Chronic rhinitis 94309309 Active 2023 Esteban Jerry MD Attn: Tiffanie luna,[address] [facility], [place], [address], [place] [facility] 4 21:09:55 Gout 84519049 Active 2023 Esteban Jerry MD Attn: Tiffanie luna,[address] [facility], [place], [address], [place] [facility] 4 21:09:56 Hyperlipidemia 29478980 Active 2023 Esteban Jerry MD Attn: Tiffanie luna,[address] [facility], [place], [address], [place] [facility] 4 21:10:00 Essential hypertension 03017221 Active 2023 Esteban Jerry MD Attn: Tiffanie luna,[address] [facility], [place], [address], [place] [facility] 4 21:01:33 Problem Notes None recorded. Procedures Surgical History None recorded. Imaging Results Imaging Date Name Status LastModified by Organization Details LastModified Time 08/05/2024 XR, humerus completed [address], [place], [address], 08/05/2024 22:00:01 08/05/2024 CT, brain, w/o contrast completed [address], [place], [address], 08/06/2024 09:39:16 08/05/2024 CT, face, w/ contrast completed [address], [place], [address], 08/06/2024 09:45:08 08/05/2024 CT, cervical spine, w/o contrast completed [address], [place], [address], 08/06/2024 10:39:35 04/28/2022 colonoscopy procedure (PROC) completed [address], [place], [address], 08/14/2024 16:21:28 08/04/2022 exercise stress test completed [address], [place], [address], 08/14/2024 12:32:49 08/30/2024 US, echocardiogram completed [address], [place], [address], 09/12/2024 11:32:10 08/31/2024 US, duplex, carotid artery completed [address] [facility], [place], [address], 09/12/2024 11:32:11 08/31/2024 US, duplex, carotid artery completed [address] [place] [address], [address], 09/12/2024 11:32:11 09/28/2024 US, thyroid active [address] [address], [place], [address], 09/29/2024 00:20:17 09/28/2024 US, thyroid active [address], [place], [address], 09/29/2024 11:17:01 Procedure Notes None recorded. Medical Equipment None [...] ENT exam we will stay on this snf per his ENT Not Available Not Available [...] Last Updated DateTime 06/01/2024 182.88 cm Bee MeñoJOSAFAT [place] - [facility] 10:16:34 Date Recorded Body mass index (BMI) Body weight Provider Name and Address Organization Details Last Updated DateTime 06/01/2024 47.3 kg/m2 945528.58 g Bee MeñoJOSAFAT [place] - [facility] 06/01/2024 10:20:08 Date Recorded Heart rate Provider Name an d Address Organization Details Last Updated DateTime 06/01/2024 62 /min Bee MeñoJOSAFAT [place] [facility] 10:23:40 Date Recorded Oxygen saturation Oxygen saturation in Arterial blood by Pulse oximetry Provider Name and Address Organization Details Last Updated DateTime 06/01/2024 97 % 97 % Bee Meño J[place]AFAT [place] [facility] 06/01/2024 10:23:42 Date Recorded Heart rate Provider Name an d Address Organization Details Last Updated DateTime 06/01/2024 61 /min Bee Wilder [place] [facility] 10:26:56 Date Recorded Oxygen saturation Oxygen saturation in Arterial blood by Pulse oximetry Provider Name and Address Organization Details Last Updated DateTime 06/01/2024 98 % 98 % Bee Meño [place]AFAT [place] [facility] 06/01/2024 10:27:30 Date Recorded Heart rate Provider Name an d Address Organization Details Last Updated DateTime 06/07/2024 64 /min Bee Meño J[place]AFAT [place] [facility] 10:20:57 Date Recorded Oxygen saturation Oxygen saturation in Arterial blood by Pulse oximetry Provider Name and Address Organization Details Last Updated DateTime 06/07/2024 96 % 96 % Bee Wilder [place] [facility] 06/07/2024 10:21:02 Date Recorded Body height Provider Name an d Address Organization Details Last Updated DateTime 06/21/2024 182.88 cm Bev Torres [place] [facility] 06/21/2024 09:59:32 Date Recorded Oxygen saturation Oxygen saturation in Arterial blood by Pulse oximetry Provider Name and Address Organization Details Last Updated DateTime 06/21/2024 97 % 97 % Bev Torres [place] [facility] 06/21 10:07:30 Date Recorded Heart rate Provider Name an d Address Organization Details Last Updated DateTime 06/21/2024 63 /min Bev JOSAFAT Torres [facility] 06/21/2024 10:07:42 Date Recorded Body height Provider Name an d Address Organization Details Last Updated DateTime 08/13/2024 182.88 cm Bee Wilder [place] [facility] 11:13:06 Date Recorded Body mass index (BMI) Body weight Provider Name and Address Organization Details Last Updated DateTime 08/13/2024 46 kg/m2 883967.53 g Bee Wilder MA [facility] 1 10/14/2023 11:14:36 Date Recorded Heart rate Provider Name an d Address Organization Details Last Updated DateTime 08/13/2024 61 /min Bee Wilder MA [facility] 11:19:30 Date Recorded Oxygen saturation Oxygen saturation in Arterial blood by Pulse oximetry Provider Name and Address Organization Details Last Updated DateTime 08/13/2024 97 % 97 % Bee Wilder MA [facility] 08/13/2024 11:19:32 Date Recorded Body height Provider Name an d Address Organization Details Last Updated DateTime 09/24/2024 182.88 cm Bee Wilder MA [facility] 10:25:22 Date Recorded Body mass index (BMI) Body weight Provider Name and Address Organization Details Last Updated DateTime 09/24/2024 47.1 kg/m2 336628.71 g Bee Wilder [place] [facility] 09/24/2024 10:28:18 Date Recorded Heart rate Provider Name an d Address Organization Details Last Updated DateTime 09/24/2024 69 /min Bee Wilder [place] [facility] 10:36:13 Date Recorded Oxygen saturation Oxygen saturation in Arterial blood by Pulse oximetry Provider Name and Address Organization Details Last Updated DateTime 09/24/2024 95 % 95 % Bee Wilder [place] [facility] 09/24/2024 10:37:45 Date Recorded Systolic blood pressure Diastolic blood pressure Provider Name and Address Organization Details Last Updated DateTime 06/01/2024 138 mm[Hg] 68 mm[Hg] Bee Wilder MA [facility] 06/01/2024 10:23:47 Date Recorded Systolic blood pressure Diastolic blood pressure Provider Name and Address Organization Details Last Updated DateTime 06/01/2024 160 mm[Hg] 90 mm[Hg] Bee Wilder [place] [facility] 06/01/2024 10:25:58 Date Recorded Systolic blood pressure Diastolic blood pressure Provider Name and Address Organization Details Last Updated DateTime 06/07/2024 164 mm[Hg] 80 mm[Hg] Bee Wilder [place] - [facility] 06/07/2024 10:19:39 Date Recorded Systolic blood pressure Diastolic blood pressure Provider Name and Address Organization Details Last Updated DateTime 06/07/2024 162 mm[Hg] 84 mm[Hg] Bee Wilder [place] - [place] 06/07/2024 10:20:47 Date Recorded Systolic blood pressure Diastolic blood pressure Provider Name and Address Organization Details Last Updated DateTime 06/21/2024 140 mm[Hg] 72 mm[Hg] Bev Torres [place] - [place] 05/30 10:03:43 Date Recorded Systolic blood pressure Diastolic blood pressure Provider Name and Address Organization Details Last Updated DateTime 08/13/2024 130 mm[Hg] 68 mm[Hg] Bee Wilder [place] 08/13/2024 11:23:44 Date Recorded Systolic blood pressure Diastolic blood pressure Provider Name and Address Organization Details Last Updated DateTime 09/24/2024 128 mm[Hg] 64 mm[Hg] Bee Wilder [place] [facility] 09/24/2024 10:37:54 Social History Question Answer Notes LastModified by Organizat ion Details LastModified Time Tobacco Smoking Status Never Smoker JOSAFAT Pat[place] [facility] 06/01/2024 10:20:40 Do You [...] Anxious, Or Unable To Sleep At Night)? [id number] Information not available 03/26/2024 Do You Use [...] Skin Problems N Anemia N Heart Attack (DC) N Diabetes N Anxiety Disorder N Muscle, [...] Details Recorded Time zoster recombinant 1 completed [place]AFAT [place], [place] [facility] 03/26/2024 11:43:19 zoster recombinant 0 completed [place] [facility] 03/26/2024 11:43:19 Influenza, high-dose, quadrivalent, PF 0 completed Inder Kingsley [place], [place] [facility] 03/26/2024 11:43:19 Influenza, high-dose, quadrivalent, PF 3 completed JOSAFAT [place], [place] - [...] SNOMED-CT Code Diagnosis ICD10 Code Diagnosis Note [id number] Esteban Jerry MD [facility] [place] [address] [place] [address] 03/26/2024 11:24:20 03/26/2024 12:48:19 Pain in left arm 599834844 M79.602 Hyperlipidemia 86701822 E78.5 Screening for malignant neoplasm of prostate 365487846 Z12.5 Long-term drug therapy 469547711 Z79.899 Gout 15419827 M10.9 Chronic rhinitis 4884634 6 J31.0 Gastroesop hageal reflux disease without esophagitis 525707397 K21.9 [id number] Esteban Jerry MD [facility] (Adult Med) [address] [place] [address] 06/01/2024 09:55:57 06/01/2024 10:45:35 Morbid obesity 016955109 E66.01 Essential hypertension 84125629 I10 [id number] Diana Bell MA [facility] - [place] [address] [place] [address] 06/07/2024 09:56:45 06/07/2024 10:41:35 Essential hypertension 09372443 I10 [id number] Esteban Jerry MD [facility] - [place] [address] [place] [address] 06/21/2024 09:53:14 06/21/2024 10:15:36 Essential hypertension 13395817 I10 [id number] Esteban Jerry MD [facility] [employer] [facility] - [place] [address] [place] [address] 08/13/2024 11:04:30 08/13/2024 12:29:53 Body mass index 30+ - obesity 454518898 Z68.41 Syncope 695124294 R55 Gastroesop hageal reflux disease without esophagitis 168329231 K21.9 Gout 35998853 M10.9 Cellulitis of face 2001 L03.108 [id number] Diana Bell MA [facility] [employer] [facility] - [place] [address] [place] [address] 09/24/2024 10:04:55 09/24/2024 11:09:42 Body mass index 30+ - obesity 203955923 Z68.42 Obesity 744532603 E66.9 Headache 38748200 R51.9 Anxiety 51733796 F41.9 Health Concerns Section Related Observation LastModified by Organization Detai ls LastModified Time None Recorded Concern Status LastModified by Organization Details LastModified Time None Recorded Advance Directives Directive Y: Payers Encounter Date Sequence Insurance Name Policy Number Policy White Covered Member ID White Member ID Guarantor Name 06/01/2024 1 [place] Bebeto Rasheed [id number] Bebeto Rasheed 06/01/2024 2 [employer] (MEDICARE SUPPLEMENT) Bebeto Rasheed [id number] Bebeto Rasheed 06/07/2024 1 [place] Bebeto Rasheed [id number] Bebeto Rasheed 06/07/2024 2 [employer] (MEDICARE SUPPLEMENT) Bebeto Rasheed [id number] Bebeto Rasheed 06/21/2024 1 [place] Beb[place] Rasheed [id number] Bebeto Rasheed 06/21/2024 2 [employer] (MEDICARE SUPPLEMENT) Bebeto Rasheed [id number] Bebeto Rasheed 08/13/2024 1 [place] Bebeto Rasheed [id number] Bebeto Rasheed 08/13/2024 2 [employer] (MEDICARE SUPPLEMENT) Bebeto Rasheed [id number] Bebeto Rasheed Notes Date Note Type Note Provider Name and Address Organization Details Recorded Time 06/01/2024 text/html Then a dull headache and was found to be hypertensive Esteban Jerry MD Attn: [employer], [place], [address], [place] [facility] 07/01/2024 22:44:54 06/21/2024 text/html tolerating the medication short interval follow up on blood pressure Esteban Jerry MD Attn: Accounting, [address] [place], [address], [place] [facility] 06/30/2024 21:02:15 08/13/2024 text/html fall [...] not be sure Esteban Jerry MD Attn: Accounting, [address] [place], [address], [place] [facility] 08/13/2024 23:19:40
== END 2024-09-30 09:51 | disposition home or self-care (01) ==
LOC: ANHIMG 09:52
PROVIDERS: PCP Internal Medicine; Visit Provider Internal Medicine
DX: R51.9 Headache, unspecified (principal)
CPT/HCPCS: 70553; A9577

== ENCOUNTER 2024-10-26 12:36 | Outpatient (CLI) | payer MEDICARE, SELFPAY | END 2024-10-26 12:37 | disposition home or self-care (01) | PROVIDERS: PCP Internal Medicine; Visit Provider Internal Medicine | DX: E04.1 Nontoxic single thyroid nodule (principal) | CPT/HCPCS: 10005; 88172; 88173; 88177; 88305 ==

== ENCOUNTER 2024-11-01 09:18 | Emergency (ER) | payer MEDICARE, SELFPAY ==
--- NOTE | ~2024-11-01 | XR_ITS ---
EXAMINATION: XR chest 2V DATE: 11/01/2024 10:03 INDICATION: Cough and congestion. TECHNIQUE: Frontal and lateral views of the chest were obtained. COMPARISON: Chest 2 views 08/05/2024 FINDINGS: There is mild elevation of right hemidiaphragm. A calcified left lung nodule and calcified left hilar lymph nodes are consistent with old granulomatous disease. No pneumonia, pleural effusion, or pneumothorax of the heart size is normal. IMPRESSION: 1. No acute cardiopulmonary disease. Reviewed, dictated and finalized at location A. BURNER
[2024-11-01 09:33] VITALS: BP 130/71; PULSE 68; RESP 20; TEMP 36.3; O2SAT 97
--- NOTE | 2024-11-01 09:42 | ED.URI ---
HPI - URI/Sore Throat General Chief Complaint: Upper Respiratory Infection Stated Complaint: SOB, rattling in chest, wheezing Time Seen by Provider: 11/01/24 09:42 Source: patient, family, RN notes reviewed and old records reviewed Mode of arrival: ambulatory Limitations: no limitations History of Present Illness HPI Narrative: 69 year old male accompanied by presents to express care with complaints of testing positive for influenza A on Tuesday and has been taking Tamiflu as prescribed by his PCP. Patient prior to being diagnosed with flu had cough and congestion and some fever and his PCP ordered him a Z-pack and he took the first day dose and then he tested positive for influenza and was told to just stop the Z pack.Patient reports feelings of congestion in chest and wheezing and feels some shortness of breath with exertion. Patient has also been taking Mucinex for his congestion, reports no fevers for a couple of days. MD elicited complaint: cough, rhinorrhea, nasal congestion and other (wheezing) Onset (ago): day(s) (4) Severity: moderate Description of mucous: clear Able to tolerate fluids by mouth: Yes Treatments prior to arrival: other (Tamiflu) Related Data Home Medications ?Medication ?Instructions ?Recorded ?Confirmed ?Last Taken ?Type allopurinol 300 mg tablet 300 mg PO HS 04/15/22 08/05/24 08/04/24 History montelukast 10 mg tablet 10 mg PO HS 04/15/22 08/05/24 08/04/24 History simvastatin 20 mg tablet 20 mg PO HS 04/15/22 08/05/24 08/04/24 History aspirin 81 mg tablet,delayed 81 mg PO HS 03/23/24 08/05/24 08/04/24 History release (Adult Aspirin Regimen) bvyzyhmmhgaa-iju-vuuax acid-vit 1 tablet PO DAILY 03/23/24 08/05/24 08/04/24 History K-lycop 400 mcg-20 mcg-370 mcg tablet omega-3 fatty acids-fish oil 300 1 cap PO DAILY 03/23/24 08/05/24 08/04/24 History mg-500 mg capsule (Fish Oil) losartan 100 1 tablet PO DAILY 08/05/24 08/05/24 08/05/24 History mg-hydrochlorothiazide 25 mg tablet oseltamivir 75 mg capsule mg 11/01/24 Unknown History sertraline 50 mg tablet mg 11/01/24 Unknown History Allergies Allergy/AdvReac Type Severity Reaction Status Date / Time No Known Allergies Allergy Verified 11/01/24 09:47 Review of Systems Review of Systems: CONSTITUTIONAL: Reports malaise, no chills, sweats, or fevers for 2 days. EYES: Denies visual changes, redness, or discharge. ENT: Reports rhinorrhea, congestion, sinus pain,no otalgia and no sore throat CARDIOVASCULAR: Denies chest pain, palpitations, or edema. RESPIRATORY: Reports cough wheezing and some dyspnea with exertion.? GASTROINTESTINAL: Denies abdominal pain, nausea, vomiting, diarrhea SKIN: Denies rash or itching. MUSCULOSKELETAL: reports myalgia. NEUROLOGIC: Denies headache. All systems reviewed & are unremarkable except as noted in HPI and below PMFSH Past Medical History Medical History HTN (hypertension) Morbid obesity with BMI of 45.0-49.9, adult Gout Hyperlipidemia GERD (gastroesophageal reflux disease) Surgical History Surgical History History of local excision of skin lesion fatty tumor from forehead H/O knee surgery H/O toe surgery bone spur removal Family History Family History Father Diabetes mellitus Mother Cerebrovascular accident Social History Social History (Updated 11/03/24 @ 08:52 by Sabina Singh NP) Smoking status: Never smoker Alcohol intake: never Substance use: never Substance use type: does not use Do You Feel Safe in your Home?: Yes Lack of Transportation: No Lack of Food: Never True Current Housing: I Have Housing Concerned About Future Housing: No Difficulty Paying Gas/Electric Bills: No Difficulty Paying for Meds: No Currently Unemployed: No Education: Trade/Vocational Certificate Difficulty w/ Childcare or Family Care: No Living arrangements: with family Occupation/Education: occupation Additional occupation/education comments: farming Spiritual care concerns: No Comments At time of signature, agree with nursing past medical, surgical, social and family history. There is no relevant family history pertinent to the presenting complaint Exam Narrative: GENERAL: Well-appearing, well-nourished, obese and in no acute distress. HEAD: Normocephalic EYES: PERRLA, conjunctivae clear ENT: Nares clear, turbinates edematous and erythematous, clear discharge. Mucous membranes moist. TM pearly shah with dull light reflex bilaterally; no tragal tenderness. Oropharynx erythematous without lesions. Tonsils not enlarged and without exudate, no drooling, no hoarseness, no trismus, uvula midline.post nasal drainage NECK: Supple. No lymphadenopathy CHEST: Scattered wheezing on auscultation, breath sounds equal. + wheezing,no rhonchi, rales, or stridor. No respiratory distress, speaks in full sentences.cough SAO2 97% on room air HEART: Regular rate and rhythm. No murmur heard. SKIN: Warm, dry, no rash. NEURO: Alert and oriented x3. PSYCH: Normal mood and affect Course Course Emergency Course: Patient is aware of diagnosis, understands and agrees to treatment plan.? Anticipatory guidance given.? Patient agrees to follow-up as directed and is aware of reasons to seek care at the emergency department. Portions of this record may have been created with voice recognition software Level of Care: Express Care Visit Vital Signs Vital signs: Vital Signs Temperature 36.3 C L 11/01/24 09:33 Pulse Rate 68 11/01/24 09:33 Respiratory Rate 20 11/01/24 09:33 Blood Pressure 130/71 11/01/24 09:33 Pulse Oximetry 97 11/01/24 09:33 Oxygen Delivery Room Air 11/01/24 09:33 Temperature 36.3 C L 11/01/24 09:33 Pulse Rate 68 11/01/24 09:51 Respiratory Rate 20 11/01/24 09:51 Blood Pressure 130/71 11/01/24 09:33 Pulse Oximetry 97 11/01/24 09:51 Oxygen Delivery Room Air 11/01/24 09:33 Reviewed MDM - URI/Sore Throat MDM Narrative Medical decision making narrative: Differential diagnosis considered: Baker virus, strep pharyngitis, allergic rhinitis, upper respiratory tract infection, sinusitis, rhinosinusitis, nasopharyngitis. viral pharyngitis, otitis media, otitis externa, pneumonia, bronchitis, viral cough syndrome, viral syndrome, and influenza.? Exam findings show no acute concerns or changes; patient is non-toxic appearing and is in no distress.? Patient is appropriate for outpatient treatment and follow-up. Differential Diagnosis Differential diagnosis: Likely upper respiratory infection, viral infection, bronchitis, influenza and other (acute cough) Medical Records Attestation: I reviewed the patient's medical records. Lab Data Attestation: I reviewed the patient's lab results. Imaging Data Attestation: I personally reviewed and interpreted this imaging study as follows: My impression: no acute cardiopulmonary disease Radiologist's impression: [facility] [address] [place] [address] [phone] XRay Report Signed Patient: Bebeto Rasheed : 1955 MR#: [id number] Age: 69 Acct:[id number] Loc: [facility] ADM Date: 11/01/24Attending Dr: Ordering Physician: Sabina Singh APRN Date of Service: 11/01/24 Procedure(s): XR chest 2V Accession Number(s): [id number] cc: Rosalino, Aman Evans MD; Sabina Singh APRN~ EXAMINATION: XR chest 2V DATE: 11/01/2024 10:03 INDICATION: Cough and congestion. TECHNIQUE: Frontal and lateral views of the chest were obtained. COMPARISON: Chest 2 views 08/05/2024 FINDINGS: There is mild elevation of right hemidiaphragm. A calcified left lung nodule and calcified left hilar lymph nodes are consistent with old granulomatous disease. No pneumonia, pleural effusion, or pneumothorax of the heart size is normal. IMPRESSION: 1. No acute cardiopulmonary disease. Reviewed, dictated and finalized at location A. GER SEQUINS Please be advised this is a medical document. It is intended for ptiq-il-umoc communication. It is written in medical language and may contain unfamiliar abbreviations or verbiage. Medical documents are intended to carry relevant information, facts as evident, and the clinical opinion of the practitioner at the time of the encounter. This report may have been done utilizing a voice recognition system. Attempts have been made to correct errors. However, there may be uncorrected grammatical, spelling, and recognition errors present. The file time of this note does not necessarily represent the time of service. Dictated By: Sree Liang MD 11/01/24 1033 Signed By: <Electronically signed by Sree Liang MD in OV> Critical Care Time Critical Care Time Critical Care Time: No Discharge Plan Discharge Clinical Impression: Influenza A, Acute cough Patient Disposition: Home, Self-Care Condition: Stable Instructions: Antibiotic Form, Influenza (ED) Additional Instructions: Increase fluids especially juices and water Wvxx-xgs-ryhlzuj cough and cold medicine of your choice for your symptoms Cough tablets as directed for cough--do not bite, chew or suck on--swallow whole Continue your inhaler/nebulizer as directed use your inhaler patient reports has at home Steroids as directed--take with food heat to the face 20-30 minutes 4-6 times a day for pain Salt water gargles, throat lozenges or throat sprays as desired finish your Tamiflu as ordered If your symptoms persist, change or worsen significantly before you can contact your personal physician then please, without delay, go to the emergency department for further evaluation. Follow-up with PCP in 7-10 days or sooner if needed Follow up with PCP soon in regards to your blood pressure which is elevated above threshold for referral. Blood pressure above 120/80 may indicate pre-hypertension. 130/71 Must be fever free for 24 hours without use of Tylenol or ibuprofen before he can be out around others generally flu last about 5 days Patient Language: Indonesian Prescriptions: New prednisone 20 mg tablet 40 mg PO DAILY 5 Days Qty: 10 0RF Rx Instructions: take with food take in the morning benzonatate 200 mg capsule 200 mg PO TID PRN (Reason: cough) Qty: 20 0RF Rx Instructions: take as needed for cough No Action sertraline 50 mg tablet oseltamivir 75 mg capsule nccsksib-nio-ftmde-vit K-lycop 400-20-370 mcg tablet 1 tablet PO DAILY aspirin [Adult Aspirin Regimen] 81 mg tablet,delayed release (DR/EC) 81 mg PO HS Fish Oil 300-500 mg capsule 1 cap PO DAILY simvastatin 20 mg tablet 20 mg PO HS montelukast 10 mg tablet 10 mg PO HS allopurinol 300 mg tablet 300 mg PO HS losartan-hydrochlorothiazide 100-25 mg tablet 1 tablet PO DAILY Follow-up/Referrals: Rosalino,MD Aman [Primary Care Provider] - Time of Disposition: 10:45 Quality [place] Coma Scale Eyes: Open Verbal: Oriented and Alert Motor: Follows Commands [place] Coma Total Score: 15
[2024-11-01 09:51] VITALS: PULSE 68; RESP 20; O2SAT 97
== END 2024-11-01 11:05 | disposition home or self-care (01) ==
PROVIDERS: Emergency Provider Registered Nurse; PCP Internal Medicine
DX: J10.1 Influenza due to other identified influenza virus with other respiratory manifestations (principal); R05.1 Acute cough; I10 Essential (primary) hypertension; E78.5 Hyperlipidemia, unspecified; K21.9 Gastro-esophageal reflux disease without esophagitis; M10.9 Gout, unspecified; E66.01 Morbid (severe) obesity due to excess calories; Z68.41 Body mass index [BMI] 40.0-44.9, adult; Z79.82 Long term (current) use of aspirin
CPT/HCPCS: 71046; 99213; G0463

== ENCOUNTER 2024-11-30 09:13 | Outpatient (CLI) | payer MEDICARE, SELFPAY ==
--- NOTE | ~2024-11-30 | MR_ITS ---
MRI of the left knee Clinical history: Pain, medial meniscal tear Technique: Coronal proton density and proton density-weighted images, sagittal proton-density and T2 fat-sat images, and axial proton-density fat-saturated images were acquired. Findings: Anterior and posterior cruciate ligaments are intact. Medial collateral ligament and the la teral collateral ligament, as are intact. Popliteus tendon is intact. There is complex tearing of the body segment of the medial meniscus. Lateral meniscus intact. There is mild chondral thinning at the medial joint line. Bone marrow signals are intact. Extensor mechanism is intact. There is minimal joint effusion. No Holbrook's cyst. Impression: Subluxed tearing of the body segment of the medial meniscus. Mild chondral thinning in the medial joint line. Reviewed, dictated and finalized at location . Impression: Subluxed tearing of the body segment of the medial meniscus. Mild chondral thinning in the medial joint line.
== END 2024-11-30 09:14 | disposition home or self-care (01) ==
LOC: GOSHIMG 09:14
PROVIDERS: PCP Orthopaedic Surgery; Visit Provider Orthopaedic Surgery
DX: S83.242A Other tear of medial meniscus, current injury, left knee, initial encounter (principal); X58.XXXA Exposure to other specified factors, initial encounter
CPT/HCPCS: 73721

== ENCOUNTER 2024-12-10 00:48 | Day surgery (SDC) | payer MEDICARE, SELFPAY ==
[2024-12-05 12:35] VITALS: BMI 47.3
--- NOTE | 2024-12-05 12:48 | PC.NURSE ---
Report to the Outpatient Waiting Room, entrance under the green pavilion located off [facility], at time _0830am on date _12/10/24 . Planned Procedure Time: _1030am .? Time changes happen often and if your time is changed the preop area will call you the afternoon before. - You and your visitor will be asked to self-screen and do not enter if you have any COVID symptoms. Please call surgeon if you need to reschedule. - A mask is optional within the hospital at this time. Patients may have clear liquids (water, carbonated beverages, clear teas, apple juice) until 3 hours prior to surgery with a maximum of 20 ounces. - No food from midnight until time of surgery and no smoking, or chewing tobacco (or any form of nicotine). No chewing gum, candy or mints. (0730am) Take only the following medications with a SIP of water on the morning of surgery: ____Sertaline and Inhaler that am, Tylenol if needed DO NOT STOP ANY OF YOUR OTHER PRESCRIPTION MEDICATIONS PRIOR TO SURGERY EXCEPT THE FOLLOWING Hold all vitamins and supplements for 3 days per anesthesiologist. Date to take last dose____12/06/24 Medications to discontinue per physician ____Aspirin for 5 days and NSAIDS for 5 days prior Date to take last dose 12/04/24 Please no make-up, nail nepali, hairspray, perfume, deodorant, or body powder the day of surgery.? No jewelry (including any body piercings) or valuables the day of surgery, leave them at home.? Please take a shower or bath the night before, or the morning of, surgery with an antibacterial soap.? Wear comfortable, loose fitting clothing.? - Jewelry must be removed prior to entering the operating room.? Rings and piercings that are not removed may be cut off. - The hospital will not accept responsibility for valuables.? - Please leave all valuables, including medications, at home the day of surgery. If you are going home after surgery, a licensed skidder driver must drive you home.? - NO public transportation without another adult if you receive anesthesia. - We recommend that an adult stay with you for 24 hours following discharge. - We also recommend that you do not drive, make important decision, drink alcoholic beverages, or take any drugs that were not prescribed by your health care provider for at least 24 hours after your discharge time. Follow any additional instructions given to you from your surgeon. Telephone instructions given to _Patient, and and asked if any additional questions and then verbalized understanding. Patient advised to call surgeon office or pre surgery nurse liaison [phone] if any additional questions.
--- NOTE | 2024-12-06 07:14 | PM.IMHP ---
H&P: HPI History of Present Illness Date/Time: 12/06/24 07:14 Chief Complaint: Patient has knee pain left. He has a meniscal tear and has failed conservative treatment. He has catching locking and pain with manipulation and pain with activity. He would like to proceed with arthroscopic intervention. Review of Systems Musculoskeletal: Musculoskeletal: Reports arthralgias, Reports joint swelling and Reports stiffness [facility] Past Medical History Medical History HTN (hypertension) Morbid obesity with BMI of 45.0-49.9, adult Gout Hyperlipidemia GERD (gastroesophageal reflux disease) Surgical History Surgical History History of local excision of skin lesion fatty tumor from forehead H/O knee surgery H/O toe surgery bone spur removal Family History Family History Father Diabetes mellitus Mother Cerebrovascular accident Social History Social History (Updated 12/04/24 @ 08:37 by Samantha Ivy CMA) Smoking status: Never smoker Alcohol intake: current Drinks per week: 14 Alcohol use details: 2 a day Substance use: never Substance use type: does not use Current Housing: Decline to Answer Concerned About Future Housing: Decline to Answer Difficulty Paying Gas/Electric Bills: Decline to Answer Difficulty Paying for Meds: Decline to Answer Currently Unemployed: Decline to Answer Education: Decline to Answer Difficulty w/ Childcare or Family Care: Decline to Answer Living arrangements: with family Additional living arrangements comments: Occupation/Education: occupation Additional occupation/education comments: farming Spiritual care concerns: No Meds Home Medications and Allergies Home Medications ?Medication ?Instructions ?Recorded ?Confirmed ?Type allopurinol 300 mg tablet 300 mg PO HS 04/15/22 12/05/24 History montelukast 10 mg tablet 10 mg PO HS 04/15/22 12/05/24 History simvastatin 20 mg tablet 20 mg PO HS 04/15/22 12/05/24 History aspirin 81 mg tablet,delayed 81 mg PO HS 03/23/24 12/05/24 History release (Adult Aspirin Regimen) losartan 100 1 tablet PO DAILY 08/05/24 12/05/24 History mg-hydrochlorothiazide 25 mg tablet sertraline 50 mg tablet 50 mg PO DAILY 11/01/24 12/05/24 History Constantino Red 4 in 1 1,000 unit PO DAILY 11/15/24 12/05/24 History Mid Nite Sleep Gummies 1 unit PO HS PRN sleep 11/15/24 12/05/24 History albuterol sulfate 90 mcg/actuation 1 puff inhalation Q4H PRN 11/15/24 12/05/24 History aerosol inhaler (Ventolin HFA) bronchospasm fluticasone propionate 50 1 spray intranasal DAILY 11/15/24 12/05/24 History mcg/actuation nasal spray,suspension (Allergy Relief (fluticasone)) multivitamin with minerals-folic 1 tablet PO DAILY 11/15/24 12/05/24 History acid 400 mcg-lycopene 370 mcg tablet (One-A-Day Men's 50 Plus) acetaminophen 500 mg tablet 1,000 mg PO Q6H pain 12/05/24 12/05/24 History (Acetaminophen Extra Strength) Allergies Allergy/AdvReac Type Severity Reaction Status Date / Time No Known Allergies Allergy Verified 12/05/24 12:22 Exam Narrative: On exam patient is catching locking and pain in the left knee. He has mechanical symptoms. He has a positive Yesenia's and tenderness along the joint line. Neurologically he is intact. He walks with an antalgic gait. Eyes: General: appearance normal, both eyes and all related structures Neck: Neck: supple Resp: Effort & Inspection: normal respiratory effort Cardio: Rate: regular rate Rhythm: regular rhythm Radiology Reports: Comments: Magnetic Resonance Report Signed Patient: Bebeto Rasheed MRI of the left knee Clinical history: Pain, medial meniscal tear Technique: Coronal proton density and proton density-weighted images, sagittal proton-density and T2 fat-sat images, and axial proton-density fat-saturated images were acquired. Findings: Anterior and posterior cruciate ligaments are intact. Medial collateral ligament and the lateral collateral ligament, as are intact. Popliteus tendon is intact. There is complex tearing of the body segment of the medial meniscus. Lateral meniscus intact. There is mild chondral thinning at the medial joint line. Bone marrow signals are intact. Extensor mechanism is intact. There is minimal joint effusion. No Holbrook's cyst. Impression: Subluxed tearing of the body segment of the medial meniscus. Mild chondral thinning in the medial joint line. Reviewed, dictated and finalized at location M. Please be advised this is a medical document. It is intended for gfzt-rx-zkev communication. It is written in medical language and may contain unfamiliar abbreviations or verbiage. Medical documents are intended to carry relevant information, facts as evident, and the clinical opinion of the practitioner at the time of the encounter. This report may have been done utilizing a voice recognition system. Attempts have been made to correct errors. However, there may be uncorrected grammatical, spelling, and recognition errors present. The file time of this note does not necessarily represent the time of service. Dictated By: Alfred Lucas MD 11/30/24 0954 Signed By: <Electronically signed by Alfred Lucas MD in OV> 11/30/24 0955 Humerus X-Ray 03/26/24 Knee X-Ray 11/15/24 Knee MRI 11/30/24 Orthopedics Result Report 11/15/24 Assessment and Plan Assessment and plan (1) Acute medial meniscus tear of left knee: Code(s): S83.242A - Other tear of medial meniscus, current injury, left knee, initial encounter Status: Acute Assessment and Plan: Patient has meniscal tear left knee. He has failed conservative treatment. He would like to consider arthroscopic intervention. I discussed this with him risks, benefits, limitations, and alternatives in detail. Will proceed per his request. He understands I will be able to change any degenerative change in his knee will get with the rid of the mechanical catching for the meniscus.
[2024-12-10] VITALS (8 sets, daily range): BP systolic 137–162; BP diastolic 59–77; PULSE 48–68; RESP 14–18; TEMP 36.2–36.3; O2SAT 96–99
--- OUTSIDE RECORDS SUMMARY | 2024-12-10 00:51 | XMS_ITS | CONTINUITY OF CARE DOCUMENT ---
Author Name shirley watson Address Unknown Organization [facility] Address [address] [address] [place] [address] Phone [phone] Care Team Providers Care Shellfish Sorter Name Role Phone Nakul Moeller MD Unavailable [phone] [employer] Payer name Policy type / Coverage type [employer] party ID [id number] PAY [id number]
--- OUTSIDE RECORDS SUMMARY | 2024-12-10 00:51 | XMS_ITS | Data Portability ---
Author Organization TONY JENNIFERSabina Morataya Address [address] [facility] [place] [address] Care Team Providers Care Block Trimmer Name Role Phone ESTEBAN JERRY Primary Care Provider Assessment Encounter Date Assessment Date Assessment LastModified by Organization Details LastModified Time 06/21/2024 06/21/2024 blood pressure under better control continue current therapy he will keep his regular follow up with me [email or web address] Not available 06/30/2024 21:01:57 08/13/2024 08/13/2024 labs from hospital reviewed. Obtain event monitor echocardiogram carotid duplex he needs to use his CPAP regularly he has not been using it he will keep his regular [email or web address] Not available 08/13/2024 23:19:00 09/24/2024 09/24/2024 sertraline 50 mg daily see me back in 6 weeks he still needs to get his thyroid ultrasound other workup so far negative MRI brain with and without contrast because of his headaches [email or web address] Not available 09/30/2024 17:20:10 11/08/2024 11/08/2024 thyroid biopsy was indeterminate I need a 2nd opinion I am going to get him to [facility] for the thyroid nodule fluticasone for his rhinitis same medicines for his anxiety dyslipidemia gout healthy lifestyle choices to help lose weight follow up with me in 4 months blood work ordered [email or web address] Not available 11/11/2024 11:58:24 Plan of Treatment Reminders Order Date Submit Date Provider Last Modified By Organization Details Last Modified Time Details Appointments ANY 15 2024 09:30A Usha Jerry MD Not available Not available Not available Lab T3, free, serum or plasma 2024 025 [email or web address], [address], [place], [address], 11/27/2024 14:06:05 TSH, ultra-sen sitive, serum 2024 025 [facility], [address] [facility], [place], [address], 11/27/2024 14:05:53 CBC w/ auto diff 2024 025 [facility], [address] , [place], [address], 11/27/2024 14:06:29 CMP, serum or plasma 2024 025 [facility], [address] [facility], [place], [address], 11/27/2024 14:05:41 lipid panel, serum 2024 025 [email or web address] [facility], [address] [facility], [place], [address], 11/27/2024 14:05:31 T4, free, serum 2024 025 [facility], [address] [facility], [place], [address], 11/27/2024 14:06:11 vitamin B12 + folate, serum or blood 2024 025 [facility], [address] [facility], [place], [address], 11/27/2024 14:06:39 Referral None recorded. Procedures None recorded. Surgeries None recorded. Imaging MRI, brain, w/wo contrast 2024 025 [facility] (Imaging), [address], [place], [address], 10/05/2024 16:39:19 event monitor - 30 day event monitor 2023 024 [facility] (Cardiology [facility]), [address], [place], [address], 10/09/2024 12:52:04 US, echocardi ogram 2023 024 [facility] (Cardiology [facility]), [address] [place] [address] [address], [place], [address], 08/30/2024 17:51:04 US, duplex, carotid artery - 4 be there at 130pm. 2023 024 [facility] (Imaging), [address] [place] [address] [facility] [place], [address], 09/02/2024 19:36:18 Medication Orders sertralin e 50 mg tablet 2024 025 [email or web address] [id number], [address] [facility], [place], [place], [id number], 09/24/2024 13:18:25 Patient TargetsNo targets recorded. Patient Instructions Encounter Date Encounter Id Patient Instructions Last Modified By Organization Details Last Modified Time 09/24/2024 [id number] A healthy lifestyle: care instructions [email or web address] Not available 09/24/2024 11:30:53 11/08/2024 [id number] A healthy lifestyle: care instructions Not available 11/08/2024 11:12:11 Reason for Referral None Reported. Results Created Date Observation Date Name Description Value Unit Range Abnormal Flag Note LastModifiedBy Organization Detail LastModifiedTime 08/05/2008/05/2024 XR, humer us No observ ation record ed. [address] [address], [place], [address], 08/05/2024 22:00:01 08/05/20 24 08/05/2024 CT, brain , w/o contr ast No observ ation record ed. [address] [id number], [place], [address], 08/06/2024 09:39:16 08/05/20 24 08/05/2024 CT, face, w/ contr ast No observ ation record ed. [address], [place], [address], 08/06/2024 09:45:08 08/05/20 24 08/05/2024 CT, cervi yasmeen spine , w/o contr ast No observ ation record ed. [address], [place], [address], 08/06/2024 10:39:35 08/13/20 24 04/28/2022 colon oscop y proce dure (PROC ) No observ ation record ed. [address], [place], [address], 08/14/2024 16:21:28 08/14/20 24 08/04/2022 exerc isalex ulloas s test No observ ation record ed. [address], [place], [address], 08/14/2024 12:32:49 08/30/19 25 08/30/2024 US, echoc ardio gram No observ ation record ed. [address], [place], [address], 09/12/2024 11:32:10 09/02/19 25 08/31/2024 US, ross mcmahon id arter y No observ ation record ed. [address], [place], [address], 09/12/2024 11:32:11 09/03/19 25 08/31/2024 US, samir timmons carot id arter y No observ ation record ed. [address], [place], [address], 09/12/2024 11:32:11 09/29/19 25 09/28/2024 US, thyro id No observ ation record ed. [facility] [address], [place], [address], 10/10/2024 11:18:27 10/01/19 25 09/30/2024 MRI, brain , w/wo contr ast No observ ation record ed. [facility] [address] [facility] [address], [place], [address], 10/10/2024 11:18:28 10/09/19 25 10/06/2024 event monit or No observ ation record ed. [facility] [address] [facility] [address], [place], [address], 11/08/2024 12:11:30 10/26/19 25 10/26/2024 fine needl e aspir ation , ultra sound guide d, thyro id (PROC ) No observ ation record ed. [id number] [facility] [address], [place], [address], 11/14/2024 16:56:46 11/02/19 25 11/01/2024 XR, chest No observ ation record ed. [id number] [facility] [address], [place], [address], 11/01/2024 21:35:46 Result Notes None recorded. Problems Name Problem SNOMED Code Status Onset Date Resolution Date Notes Provider Name and Address Organization Details Recorded Time Pain in left arm 551235308 Active 2023 Diana Bell MA null, [place] - [facility] 4 12:44:18 Gastroesophage al reflux disease without esophagitis 998781254 Active 2023 Esteban Jerry MD Attn: Tiffanie luna,[address] [facility], [place], [address], [place] [facility] 4 21:09:54 Chronic rhinitis 77501098 Active 2023 Esteban Jerry MD Attn: Tiffanie luna,[address] [facility], [place], [address], [place] [facility] 4 21:09:55 Gout 88323020 Active 2023 Esteban Jerry MD Attn: Tiffanie luna,[address], [place], [address], [facility] - [facility] 4 21:09:56 Hyperlipidemia 42561851 Active 2023 Esteban Jerry MD Attn: Tiffanie luna,[address], [place], [address], [place] [facility] 4 21:10:00 Essential hypertension 62714279 Active 2023 Esteban Jerry MD Attn: Tiffanie luna,[address], [place], [address], [place] [facility] 4 21:01:33 Thyroid nodule 715906975 Active 2024 Esteban Jerry MD Attn: Tiffanie luna,[address] [facility], [place], [address], [facility] - [facility] 5 11:58:33 Problem Notes None recorded. Procedures Surgical History None recorded. Imaging Results Imaging Date Name Status LastModified by Organization Details LastModified Time 08/05/2024 XR, humerus completed [address] [place] [address], [address], 08/05/2024 22:00:01 08/05/2024 CT, brain, w/o contrast completed [address] [place] [address], [address], 08/06/2024 09:39:16 08/05/2024 CT, face, w/ contrast completed [address] [place] [address], [address], 08/06/2024 09:45:08 08/05/2024 CT, cervical spine, w/o contrast completed [address] [place] [address], [address], 08/06/2024 10:39:35 04/28/2022 colonoscopy procedure (PROC) completed [address], [address], 08/14/2024 16:21:28 08/04/2022 exercise stress test completed [address], [place], [address], 08/14/2024 12:32:49 08/30/2024 US, echocardiogram completed [address], [place], [address], 09/12/2024 11:32:10 08/31/2024 US, duplex, carotid artery completed [address], [place], [address], 09/12/2024 11:32:11 08/31/2024 US, duplex, carotid artery completed [address], [place], [address], 09/12/2024 11:32:11 09/28/2024 US, thyroid completed [address], [place], [address], 10/10/2024 11:18:27 09/30/2024 MRI, brain, w/wo contrast completed [address], [place], [address], 10/10/2024 11:18:28 10/06/2024 event monitor completed [address] [facility], [place], [address], 11/08/2024 12:11:30 10/26/2024 fine needle aspiration, ultrasound guided, thyroid (PROC) completed [address], [place], [address], 11/14/2024 16:56:46 11/01/2024 XR, chest completed [address], [place], [address], 11/01/2024 21:35:46 Procedure Notes None recorded. Medical Equipment None Reported. Allergies No known drug allergies Medications Name Sig Start Date Stop Date Status Note LastModified by Organization Details LastModified Time prednison e 10 mg tablet TAKE 1 TABLET BY MOUTH TWICE DAILY FOR 10 DAYS active Not Available Not Available No t Available doxycycli ne hyclate 100 mg capsule TAKE 1 CAPSULE BY MOUTH EVERY 12 HOURS 11/08 completed Not Available Not Available Not Available azithromy thomas 250 mg tablet TAKE 2 TABLETS (500 MG) BY ORAL ROUTE ONCE DAILY FOR 1 DAY THEN 1 TABLET (250 MG) BY ORAL ROUTE ONCE DAILY FOR 4 DAYS 11/08 completed Not Available Not Available Not Available benzonata te 200 mg capsule TAKE 1 CAPSULE BY MOUTH THREE TIMES DAILY NEEDED FOR COUGH 11/08 completed Not Available Not Available Not Available prednison e 20 mg tablet TAKE 2 TABLETS BY MOUTH DAILY IN THE MORNING WITH FOOD FOR 5 DAYS 11/08 completed Not Available Not Available Not Available cyanocoba светлана (vit B-12) 1,000 mcg tablet TAKE ONE TABLET BY MOUTH THREE DAYS A WEEK active Not Available Not Available No t Available losartan 100 mg-hydroc hlorothia zide 25 mg tablet TAKE 1 TABLET BY MOUTH EVERY DAY active Not Available Not Available No t Available simvastat in 20 mg tablet TAKE 1 TABLET BY MOUTH DAILY active Not Available Not Available No t Available oseltamiv ir 75 mg capsule TAKE 1 CAPSULE BY MOUTH TWICE DAILY FOR 5 DAYS 11/08 completed Not Available Not Available Not Available omeprazol e 20 mg capsule,d elayed release 11/08 completed because of findings on ENT exam we will stay on this [facility] per his ENT Not Available Not Available [...] PUFFS BY MOUTH EVERY 4 HOURS NEEDED 2024 active Not Available Not Available Not Avai lable losartan 50 mg-hydroc hlorothia zide 12.5 mg [...] t Available sertralin e 50 mg tablet TAKE 1 TABLET BY MOUTH EVERY DAY active Not Available Not Available No t Available amoxicill in 875 mg-potass ium clavulana te 125 mg tablet TAKE 1 TABLET BY MOUTH EVERY 12 HOURS 11/08 completed Not Available Not Available Not Available Fish Oil active Not Available Not [...] 162 mm[Hg] 84 mm[Hg] Bee Wilder MA [facility] 4 10:20:47 Date Recorded Body height Oxygen saturation Oxygen saturation in Arterial blood by Pulse oximetry Heart rate Systolic blood pressure Diastolic blood pressure Provider Name and Address Organization Details Last Updated DateTime 4 182.88 cm 97 % 97 % 63 /min 140 mm[Hg] 72 mm[Hg] Bev Torres MA [facility] 4 10:03:43 Date Recorded Body height Body mass index (BMI) Body weight Heart rate Oxygen saturation Oxygen saturation in Arterial blood by Pulse oximetry Systolic blood pressure Diastolic blood pressure Provider Name and Address Organization Details Last Updated DateTime 4 182.88 cm 46 kg/m2 990585. 53 g 61 /min 97 % 97 % 130 mm[Hg] 68 mm[Hg] Bee Wilder MA [facility] 4 11:23:44 Date Recorded Body height Body mass index (BMI) Body weight Heart rate Oxygen saturation Oxygen saturation in Arterial blood by Pulse oximetry Systolic blood pressure Diastolic blood pressure Provider Name and Address Organization Details Last Updated DateTime 5 182.88 cm 47.1 kg/m2 187191. 71 g 69 /min 95 % 95 % 128 mm[Hg] 64 mm[Hg] Bee Wilder MA [place] - [facility] 5 10:37:54 Date Recorded Body height Body mass index (BMI) Body weight Heart rate Oxygen saturation Oxygen saturation in Arterial blood by Pulse oximetry Systolic blood pressure Diastolic blood pressure Provider Name and Address Organization Details Last Updated DateTime 182.88 cm 46.5 kg/m2 228698. 18 g 64 /min 96 % 96 % 120 mm[Hg] 74 mm[Hg] Bev Torres [place] - [facility] 5 10:38:07 Social History Question Answer Notes LastModified by Organizat ion Details LastModified Time Tobacco Smoking Status Never Smoker Bee Wilder JOSAFAT null, [place] - [facility] 06/01/2024 10:20:40 Do You Have [...] Anxious, Or Unable To Sleep At Night)? [id number] Information not available 03/26/2024 Do You Use [...] Reflux (GERD) N Cancer N Stroke N Headaches N Kidney or Bladder Problems N Have you had a mammogram in the last yea r? N Skin Problems N Asthma N Allergies N Have you had a PSA blood test in the las t year? N Hepatitis N High Cholesterol Y Liver Disease N Thyroid Problems N GI Problems N Anemia N Heart Attack ([place]) N Diabetes N Seizures/Epilepsy N Have you had a colonoscopy in the last 1 0 years? N Osteoporosis N Heart Failure N Immunizations [...] preservative 2 completed Inder Kings[place] null, [place] [facility] 03/26/2024 11:43:19 Influenza, split virus, trivalent, preservative 4 completed Inder [place], [place] [facility] 03/26/2024 11:43:19 Influenza, split virus, quadrivalent, PF 8 completed Inder [place], [place] [facility] 03/26/2024 11:43:19 Influenza, adjuvanted, trivalent, PF 4 completed Bev Torres [place], [place] [facility] 11/08/2024 09:04:49 Past Encounters Encounter ID Performer Location Encounter Start Date Encounter Closed Date Diagnosis/Indication Diagnosis SNOMED-CT Code Diagnosis ICD10 Code Diagnosis Note [id number] Esteban Jerry MD [facility] [address] [place] [address] 03/26/2024 11:24:20 03/26/2024 12:48:19 Pain in left arm 068013683 M79.602 Hyperlipidemia 15947312 E78.5 Screening for malignant neoplasm of prostate 308872921 Z12.5 Long-term drug therapy 880251995 Z79.899 Gout 05800643 M10.9 Chronic rhinitis 8559698 6 J31.0 Gastroesop hageal reflux disease without esophagitis 818877749 K21.9 [id number] Esteban Jerry MD [facility] (Adult Med) [address] [place] [address] 06/01/2024 09:55:57 06/01/2024 10:45:35 Morbid obesity 145041572 E66.01 Essential hypertension 46524522 I10 [id number] Diana Bell MA [facility] [place] [address] [place] [address] 06/07/2024 09:56:45 06/07/2024 10:41:35 Essential hypertension 71438316 I10 [id number] Esteban Jerry MD [facility] [place] [address] [place] [address] 06/21/2024 09:53:14 06/21/2024 10:15:36 Essential hypertension 36081717 I10 [id number] Esteban Jerry MD [facility] [place] [address] [place] [address] 08/13/2024 11:04:30 08/13/2024 12:29:53 Body mass index 30+ - obesity 114113930 Z68.41 Syncope 140664852 R55 Gastroesop hageal reflux disease without esophagitis 355607847 K21.9 Gout 79394205 M10.9 Cellulitis of face 2001 L03.804 [id number] Esteban Jerry MD [facility] [place] [address] [place] [address] 09/24/2024 10:04:55 09/24/2024 11:09:42 Body mass index 30+ - obesity 046388349 Z68.42 Obesity 898330001 E66.9 Headache 18878922 R51.9 Anxiety 41827784 F41.9 [id number] Esteban Jerry MD [facility] [place] [address] [place] [address] 11/08/2024 10:24:04 11/08/2024 11:37:48 Body mass index 40+ - severely obese 036141970 Z68.42 Morbid obesity 621398648 E66.01 Hyperlipidemia 52278460 E78.5 Essential hypertension 16510313 I10 Fatigue 28017769 R53.83 Gastroesop hageal reflux disease without esophagitis 150021435 K21.9 Chronic rhinitis 9972345 6 J31.0 Thyroid nodule 259274663 E04.1 Health Concerns Section Related Observation LastModified by Organization Detai ls LastModified Time None Recorded Concern Status LastModified by Organization Details LastModified Time None Recorded Advance Directives Directive Y: Payers Encounter Date Sequence Insurance Name Policy Number Policy White Covered Member ID White Member ID Guarantor Name 06/07/2024 1 [place] eBbeto Rasheed [id number] Bebeto Rasheed 06/07/2024 2 [employer] (MEDICARE SUPPLEMENT) Bebeto Rasheed [id number] Bebeto Rasheed 06/21/2024 1 [place] Bebeto Rasheed [id number] Bebeto Rasheed 06/21/2024 2 [employer] (MEDICARE SUPPLEMENT) Bebeto Rasheed [id number] Bebeto Rasheed 08/13/2024 1 [place] Bebeto Rasheed [id number] Bebeto Rasheed 08/13/2024 2 [employer] (MEDICARE SUPPLEMENT) Bebeto Rasheed [id number] Bebeto Rasheed 09/24/2024 2 [employer] (MEDICARE SUPPLEMENT) Bebeto Rasheed [id number] Bebeto Rasheed 09/24/2024 [place] [facility] - [facility] Bebeto Rasheed [id number] Bebeto Rasheed 11/08/2024 1 [place] Bebeto Rasheed [id number] Bebeto Rasheed 11/08/2024 2 [employer] (MEDICARE SUPPLEMENT) Bebeto Rasheed [id number] Bebeto Rasheed Notes Date Note Type Note Provider Name and Address Organization Details Recorded Time 06/21/2024 text/html tolerating the medication short interval follow up on blood pressure Esteban Jerry MD Attn: Accounting, [address] [facility], [place], [address], [facility] - [facility] 06/30/2024 21:02:15 08/13/2024 text/html fall no fracture [...] Esteban Jerry MD Attn: Accounting,[address] [facility], [place], [address], [facility] - [facility] 08/13/2024 23:19:40 09/24/2024 text/html still with some headache. describes that he has a very anxious individual right now he downplays it has been on some SSRI think in the past Esteban eJrry MD Attn: Accounting,[address] [facility], [place], [address], [facility] - [facility] 09/30/2024 17:20:38 11/08/2024 text/html his blood pressu re is doing fine still feels like he is going to clear his throat a lot needs help lose weight needs better diet still has a little bit of fatigue . Rhinitis still bothers him. Interval history influenza A recovering nicely Esteban Jerry MD Attn: Accounting[address] [place], [address], [facility] - [facility] 11/11/2024 12:00:06
--- OUTSIDE RECORDS SUMMARY | 2024-12-10 00:51 | XMS_ITS | Clinical Summary ---
Author Organization [facility] [place] [facility] [address] [facility] 162 Address [address] [facility] [address] [place] [address] Care Team Providers Care Epic Prelude Analyst Name Role Phone Aman Jerry MD Primary Care Provider [phone] Medications albuterol HFA (PROVENTIL HFA,VENTOLIN HFA,PROAIR HFA) 90 mcg/actuation inhaler Inhale 2 puffs as needed Active allopurinoL (ZYLOPRIM) 300 mg tablet Take 1 tablet (300 mg total) by mouth daily Active fluticasone propionate (FLONASE) 50 mcg/actuation nasal spray Administer 1 spray into each nostril daily Active losartan-hydroc hlorothiazide (HYZAAR) 100-25 mg per tablet Take 1 tablet by mouth daily Active montelukast (SINGULAIR) 10 mg tablet Take 1 tablet (10 mg total) by mouth daily Active sertraline (ZOLOFT) 50 mg tablet Take 1 tablet (50 mg total) by mouth daily Active simvastatin (ZOCOR) 20 mg tablet Take 1 tablet (20 mg total) by mouth daily Active Active Problems Problem Noted Date Diagnosed Date Nontoxic single thyroid nodule 11/29/2024 Thyroid nodule 11/29/2024 Encounters Date Type Department Care Team Description 11/29/2024 9:00 AM CDT Lab [facility] [place] - Lab Collection [facility] [address] [place] [address] Nontoxic single thyroid nodule 11/29/2024 8:00 AM CDT Office Visit [facility] Department of Otolaryngology Head-Neck Division [address] [place] [address] 5 [place] [phone] Darrius Hines MD Nontoxic single thyroid nodule 11/27/2024 2:03 PM CDT - 11/27/2024 11:59 PM CDT Hospital Encounter [facility] ([facility]) [address] [place] [address] Diagnosis unknown Discharge Disposition: Discharge to home or self care 11/27/2024 Telephone [facility] Department of Otolaryngology Head-Neck Division [facility] [facility] Floor [address] [place] [phone] Kimberley Quintero RN 11/22/2024 Orders Only [facility] Department of Otolaryngology Head-Neck Division [address] [place] [address] Floor 5 [place] [phone] Darrius Hines MD 11/22/2024 Orders Only [address] [address] Darrius Hines MD Thyroid nodule 11/21/2024 Orders Only [facility] Department of Otolaryngology Head-Neck Division [address] [place] [address] Floor 5 [place] [phone] Darrius Hines MD Thyroid nodule (Primary Dx) 11/15/2024 Telephone [place] [facility] ([facility]) - [facility] ENT [address] [facility] 11th [place] [address] [place] [phone] Zahra Ivy MS from Last 3 Months Social History Tobacco Use Types Packs/Day Years Used Date Smoking Tobacco: Never Assessed Sex and Gender Information Value Date Recorded Sex Assigned at Not on file Legal Sex Male 8:44 AM [employer] Gender Identity Not on file Sexual Orientation Not on file Obstetrics History Last Filed Vital Signs Vital Sign Reading Time Taken Comments Blood Pressure - - Pulse - - Temperature - - Respiratory Rate - - Oxygen Saturation - - Inhaled Oxygen Concentration - - Weight 154.3 kg (340 lb 3.2 oz) 11/29/2024 7:49 AM CDT Height 180.2 cm (5' 10.95 ) 11/29/2024 7:49 AM C DT Body Mass Index 47.52 11/29/2024 7:49 AM CDT Plan of Treatment Upcoming Encounters Date Type Department Care Team (Latest Contact Info) Description 03/12/2025 7:30 AM CDT Hospital Encounter [facility] [address] [place] [address] Darrius Hines MD [address] [place] [address] 03/12/2025 7:30 AM CDT - 03/12/2025 9:50 AM CDT Surgery [facility] ([facility]) [address] [place] [address] Darrius Hines MD [address] [place] [address] LOBECTOMY - THYROID Scheduled Procedures Name Priority Associated Diagnoses Date/Ti me LOBECTOMY - THYROID Thyroid nodule 03/12/2025 7:30 AM CDT Health Maintenance Due Date Last Done Comments Colon Cancer Screening-Colonoscopy 1955 Depression Screening 1955 Fall Risk Assessment 1955 Hepatitis C Screening 1955 Hepatitis B Screening 1972 Pneumococcal vaccine 65+ (1 of 1 - PCV) 2004 Abdominal Aortic Aneurysm (A AA) Screen 2019 Well Visit 65+ 2019 Covid-19 Vaccine (4 - 2023-2 5 season) 2024 07/14/2021, 11/17/2020, 10/15/2020 DTaP/Tdap/Td Vaccine (2 - Td or Tdap) 08/05/2034 08/05/2024 Zoster Vaccine Completed 09/29/2020, 07/30/2020 Influenza Vaccine Completed 05/25/2024, , 07/13/2022, Additional history exists Procedures Procedure Name Priority Date/Time Associated Diagnosis Comments THYROID FUNCTION CASCADE Routine 11/29/2024 8:56 AM CDT Nontoxic single thyroid nodule US OUTSIDE CONSULT Routine 11/27/2024 2: 03 PM CDT Diagnosis unknown CYTOLOGY Routine 11/22/2024 9:28 AM CDT from Last 3 Months Results * Thyroid Function Teller (11/29/2024 8:56 AM CDT) TSH 0.90 0.30 - 4.20 mcIUnit/mL Blood 11/29/2024 8:56 AM CDT 11/29/2024 9:01 AM CDT us Latoya Stahl MD LAB BLOOD ORDERABLES Final Result [facility] Department [place] [address] * US Outside Consult (11/27/2024 2:03 PM CDT) Anatomical Region Laterality Modality Ultrasound 11/27/2024 2:27 PM CDT Impressions 11/27/2024 2:27 PM CDT TR5 right lower thyroid nodule, which underwent fine-needle aspiration at outside hospital on 10/26/2024, which was nondiagnostic. This nodule meets ACR TI-RADS criteria for fine-needle aspiration and repeat fine-needle aspiration could be performed if clinically indicated. ACR TI-RADS Recommendations FNA should only be recommended on a maximum of 2 nodules. A recommendation for follow-up should only be provided for a maximum of 4 nodules. TR5 (>=7 points) (risk of malignancy > 20%) >=1 cm: FNA 0.5-0.9 cm: follow-up US every year for 5 years <0.5 cm: no further evaluation TR4 (4-6 points) (risk of malignancy 5-20%) >=1.5 cm: FNA 1-1.4 cm: follow-up US in 1, 2, 3, and 5 years <1.0 cm: no further evaluation TR3 (3 points) (risk of malignancy 2-5%) >=2.5 cm: FNA 1.5-2.4 cm: follow-up US in 1, 3, and 5 years <1.5 cm: no further evaluation TR2 (2 points) and TR1 (0 points) (risk of malignancy < 2%) No FNA or follow-up US The findings and impression are based on the available images, which may not be retail field representative of the entire organ or disease entity. Also note that ultrasound image acquisition is digester operator helper dependent, and that the study was performed outside our facility with no control over image acquisition. In addition, the provided images may or may not represent the [place] source data set and thus may contain changes that may lower the accuracy of this second-opinion interpretation. The findings, conclusions and recommendations within this report do not replace the initial findings, conclusions and recommendations made at the facility where the study was performed based upon the imaging and clinical condition at that time. Comparison with the prior report and clinical history is necessary. Electronically signed by: Rylie Strong M.D. Narrative 11/27/2024 2:27 PM CDT EXAMINATION: RADIOLOGY CONSULTATION ON OUTSIDE IMAGING STUDY STUDY INITIALLY PERFORMED: 09/28/2024 at [facility]. TYPE OF STUDY: Multiple ultrasound images with cine clips of the thyroid are provided at the time of this interpretation. TYPE OF CONSULTATION: Consult on outside imaging study with images submitted through Outside Image Sharing Service DATE OF CONSULTATION: 11/27/2024 2:21 PM HISTORY: 69-year-old with right thyroid nodule status post fine-needle aspiration on 10/26/2024, which was nondiagnostic. COMPARISON: None available. FINDINGS: The thyroid is normal in size. Size right lobe: 5.9 cm craniocaudal, 1.9 cm transverse, 1.4 cm AP. Size left lobe: 4.8 cm craniocaudal, 1.6 cm transverse, 1.9 cm AP. Size isthmus: 0.9 cm AP. Estimated total number of nodules >/= 1 cm: 1 Number of spongiform nodules >/= 2 cm not described below (TR1): 0 Number of mixed cystic and solid nodules >/= 1.5 cm not described below (TR2): 0 Nodule 1: Location: Right lower . Size: 1.1 cm craniocaudal x 1.2 cm transverse x 1.1 cm AP Maximum Size: 1.2 cm Composition: Solid/almost completely solid (2) Echogenicity: Isoechoic (1) Shape: Not taller than wide (0) Margins: Smooth (0) Echogenic foci: Punctate echogenic foci (3) Additional Echogenic foci 1: Macrocalcifications (1) ACR TI-RADS total points: 7 ACR TI-RADS risk category: TR5 (7 or more points) ACR TI-RADS recommendation: US-guided fine needle aspiration Procedure Note Rylie Strong MD - 11/27/2024 EXAMINATION: RADIOLOGY CONSULTATION ON OUTSIDE IMAGING STUDY STUDY INITIALLY PERFORMED: 09/28/2024 at [facility]. TYPE OF STUDY: Multiple ultrasound images with cine clips of the thyroid are provided at the time of this interpretation. TYPE OF CONSULTATION: Consult on outside imaging study with images submitted through Outside Image Sharing Service DATE OF CONSULTATION: 11/27/2024 2:21 PM HISTORY: 69-year-old with right thyroid nodule status post fine-needle aspiration on 10/26/2024, which was nondiagnostic. COMPARISON: None available. FINDINGS: The thyroid is normal in size. Size right lobe: 5.9 cm craniocaudal, 1.9 cm transverse, 1.4 cm AP. Size left lobe: 4.8 cm craniocaudal, 1.6 cm transverse, 1.9 cm AP. Size isthmus: 0.9 cm AP. Estimated total number of nodules >/= 1 cm: 1 Number of spongiform nodules >/= 2 cm not described below (TR1): 0 Number of mixed cystic and solid nodules >/= 1.5 cm not described below (TR2): 0 Nodule 1: Location: Right lower . Size: 1.1 cm craniocaudal x 1.2 cm transverse x 1.1 cm AP Maximum Size: 1.2 cm Composition: Solid/almost completely solid (2) Echogenicity: Isoechoic (1) Shape: Not taller than wide (0) Margins: Smooth (0) Echogenic foci: Punctate echogenic foci (3) Additional Echogenic foci 1: Macrocalcifications (1) ACR TI-RADS total points: 7 ACR TI-RADS risk category: TR5 (7 or more points) ACR TI-RADS recommendation: US-guided fine needle aspiration IMPRESSION: TR5 right lower thyroid nodule, which underwent fine-needle aspiration at outside hospital on 10/26/2024, which was nondiagnostic. This nodule meets ACR TI-RADS criteria for fine-needle aspiration and repeat fine-needle aspiration could be performed if clinically indicated. ACR TI-RADS Recommendations FNA should only be recommended on a maximum of 2 nodules. A recommendation for follow-up should only be provided for a maximum of 4 nodules. TR5 (>=7 points) (risk of malignancy > 20%) >=1 cm: FNA 0.5-0.9 cm: follow-up US every year for 5 years <0.5 cm: no further evaluation TR4 (4-6 points) (risk of malignancy 5-20%) >=1.5 cm: FNA 1-1.4 cm: follow-up US in 1, 2, 3, and 5 years <1.0 cm: no further evaluation TR3 (3 points) (risk of malignancy 2-5%) >=2.5 cm: FNA 1.5-2.4 cm: follow-up US in 1, 3, and 5 years <1.5 cm: no further evaluation TR2 (2 points) and TR1 (0 points) (risk of malignancy < 2%) No FNA or follow-up US The findings and impression are based on the available images, which may not be retail field representative of the entire organ or disease entity. Also note that ultrasound image acquisition is digester operator helper dependent, and that the study was performed outside our facility with no control over image acquisition. In addition, the provided images may or may not represent the [place] source data set and thus may contain changes that may lower the accuracy of this second-opinion interpretation. The findings, conclusions and recommendations within this report do not replace the initial findings, conclusions and recommendations made at the facility where the study was performed based upon the imaging and clinical condition at that time. Comparison with the prior report and clinical history is necessary. Electronically signed by: Rylie Strong M.D. us Darrius Hines MD IMG US PROCEDURES Final Result * Cytology (11/22/2024 9:28 AM CDT) Miscellaneous 11/22/2024 9:2 8 AM CDT 11/22/2024 9:28 AM CDT Narrative 11/22/2024 4:27 PM CDT Results in EPIC best viewed via PDF link [facility] Pathology Consult [place] [address] Note to Patients: This report may contain a detailed description of human tissue sent by a health care provider to the laboratory for pathologic evaluation. The content of this report is essential for diagnosis and may provide important critical findings. This information may be unfamiliar to patients to review without a medical professional present. It is advised that the patient review this report in the presence of a health care provider who can answer questions and explain the details. CYTOPATHOLOGY REPORT * Consult Report * FINAL Patient Name: BEBETO RASHEED Address: [address] [place], [place] [id number] Gender: M : 1955 (Age: 69) Hospital #: [id number] [facility] Location: UNKNOWN Taken: 11/22/2024 Received: 11/22/2024 Accessioned: 11/22/2024 Reported: 11/22/2024 Physician(s): Darrius Hines M.D. [facility] Department of Pathology [address] [place] [address] P: [phone] F: [phone] Histology: [phone] Final Diagnosis Consult material received from [place], [place] A. Thyroid, right upper lobe nodule, fine needle aspiration (OSC#: [id number]; 10/26/2024): - Nondiagnostic due to insufficient cellularity 11/22/2024 16:27 By this signature, I attest that the above diagnosis is based upon my personal examination of the slides(and/or other material indicated in the diagnosis). Report Electronically Reviewed and Signed Out By Aquiles Parkinson M.D. 11/22/2024 16:27:19 Material Received Received for review are five slides labeled [id number], accompanied by a corresponding pathology report. The material originates from [place], [place]. Selected slide(s) may be digitally scanned for our files, and all materials are returned to the referring institution, along with a copy of our final report. Gross Description A. Thyroid, right upper lobe nodule, fine needle aspiration (OSC#: [id number]; 10/26/2024): 1 H&E slide and 4 papsmeared slides. Clinical Diagnosis and History thyroid nodule Any testing required for diagnostic purposes was performed in the Department of Pathology and Immunology at [facility], [address] [place] [address] CLIA # [id number] The performance characteristics of the testing cited in this report (if any) were determined by the [facility] Department of Pathology and Immunology [facility], as part of an ongoing quality control microbiology supervisor program and in compliance with federally mandated regulations drawn from the Clinical Laboratory Improvement Act of 1988 (CLIA '88). Some of these tests rely on the use of analyte specific reagents (ASR) and are subject to specific labeling requirements by the US Food and Drug Administration. Such diagnostic tests may only be performed in a facility that is certified by the Department of Health and Human Services as a high complexity laboratory under CLIA '88. The FDA has determined that such clearance or approval is not necessary. ASRs should not be regarded as investigational or for research. ASRs were developed and the performance characteristics determined by the [facility], [facility] Department of Pathology and Immunology. It has not been cleared or approved by the U.S. Food and Drug Administration. Any test designated as LDT was developed and its performance characteristics determined by [facility]. It has not been cleared or approved by the FDA. This test is used for clinical purposes and should not be regarded as investigational or for research. Report images and/or scanned reports, if included, only viewable in PDF version of report. Darrius Hines MD LAB CYTOLOGY ORDERABLES Final Result from Last 3 Months Insurance MEDICARE MEDICARE [facility] INSURANCE MEDICARE Care Teams Epic Prelude Analyst Relationship Specialty Start Date End Date Aman Jerry MD PCP - General Internal Medicine 08/04/22
--- OUTSIDE RECORDS SUMMARY | 2024-12-10 00:51 | XMS_ITS | Referral Summary ---
Author Organization [facility] [address] Address [address] [place] [address] Care Team Providers Care Aerographer Name Role Phone Aman Jerry MD Primary Care Provider [phone] Encounters Date Type Department Care Team Description 11/29/2024 9:00 AM CDT Lab [facility] - Lab Collection [address] [place] [address] Nontoxic single thyroid nodule 11/29/2024 8:00 AM CDT Office Visit [facility] Department of Otolaryngology Head-Neck Division [address] [place] [phone] Darrius Hines MD Nontoxic single thyroid nodule 11/27/2024 2:03 PM CDT - 11/27/2024 11:59 PM CDT Hospital Encounter [facility] [address] [place] [address] Diagnosis unknown Discharge Disposition: Discharge to home or self care 11/27/2024 Telephone [facility] Department of Otolaryngology Head-Neck Division [address] [place] [phone] Kimberley Quintero RN 11/22/2024 Orders Only [facility] Department of Otolaryngology Head-Neck Division [address] [place] [phone] Darrius Hines MD 11/22/2024 Orders Only [facility] OUTREACH [address] [place] [address] Darrius Hines MD Thyroid nodule 11/21/2024 Orders Only [facility] Department of Otolaryngology Head-Neck Division [address] [facility] Floor [address] [place] [phone] Darrius Hines MD Thyroid nodule (Primary Dx) 11/15/2024 [facility] ([facility] - [facility] ENT [address] [facility] 11th [place] [address] [place] [phone] Zahra Ivy MS from Last 3 Months Medications albuterol HFA (PROVENTIL HFA,VENTOLIN HFA,PROAIR HFA) [...] single thyroid nodule 11/29/2024 Thyroid nodule 11/29/2024 Social History Tobacco Use Types Packs/Day Years Used Date Smoking Tobacco: Never Assessed Sex and Gender Information Value Date Recorded Sex Assigned at Not on file 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 Gender Identity Not on file Sexual Orientation Not on file Last Filed Vital Signs Vital Sign Reading [...] Description 03/12/2025 7:30 AM CDT Hospital Encounter [facility] Operating Room [facility] [address] [place] [address] Darrius Hines MD [address] [place] [address] 03/12/2025 7:30 AM CDT - 03/12/2025 9:50 AM CDT Surgery [facility] Operating Room [facility] [address] [place] [address] Darrius Hines MD [address] [place] [address] LOBECTOMY - THYROID Scheduled Procedures Name Priority Associated Diagnoses Date/Ti me LOBECTOMY - THYROID Thyroid nodule 03/12/2025 7:30 AM CDT Procedures Procedure Name Priority Date/Time Associated Diagnosis Comments THYROID FUNCTION CASCADE Routine 11/29/2024 8:56 AM CDT Nontoxic single thyroid nodule US OUTSIDE CONSULT Routine 11/27/2024 2: 03 PM CDT Diagnosis unknown CYTOLOGY Routine 11/22/2024 9:28 AM CDT from Last 3 Months Results * Thyroid Function [place] (11/29/2024 8:56 AM CDT) TSH 0.90 0.30 - 4.20 mcIUnit/mL Blood 11/29/2024 8:56 AM CDT 11/29/2024 9:01 AM CDT us Latoya Stahl MD LAB BLOOD ORDERABLES Final Result [facility] Department of Laboratories [place], [place] [id number] * US Outside Consult (11/27/2024 2:03 PM [...] the available images, which may not be employment program representative of the entire organ or disease entity. Also note that ultrasound image acquisition is arch cushion press operator dependent, and that the study was performed outside our facility with no control over image acquisition. In addition, the provided images may or may not represent the [employer] [employer] source data set and thus may contain [...] clinical history is necessary. Electronically signed by: Nick Borrego 11/27/2024 2:27 PM CDT EXAMINATION: RADIOLOGY CONSULTATION ON OUTSIDE IMAGING STUDY STUDY INITIALLY PERFORMED: 09/28/2024 at [facility]. TYPE OF STUDY: Multiple ultrasound images [...] IMAGING STUDY STUDY INITIALLY PERFORMED: 09/28/2024 at [facility]. TYPE OF STUDY: Multiple ultrasound images [...] the available images, which may not be employment program representative of the entire organ or disease entity. Also note that ultrasound image acquisition is arch cushion press operator dependent, and that the study was performed outside our facility with no control over image acquisition. In addition, the provided images may or may not represent the [employer] [place] [employer] source data set and thus may contain [...] in EPIC best viewed via PDF link [facility] Pathology Consult Service [address] [place] [id number] Note to Patients: This report may contain [...] * FINAL Patient Name: BEBETO RASHEED Address: [address] [place], [place] [id number] Gender: M : 1955 (Age: 69) [facility] #: [id number] Patient Type: RAFIQ Location: UNKNOWN Taken: 11/22/2024 Received: 11/22/2024 Accessioned: 11/22/2024 Reported: 11/22/2024 Physician(s): Darrius Hines M.D. [facility] Department of Pathology [address] [place] [address] P: [phone] F: [phone] Histology: [phone] Final Diagnosis Consult material received from [place], [place] A. Thyroid, right upper lobe nodule, fine needle aspiration (OSC#: [id number]; 10/26/2024): - Nondiagnostic due to insufficient cellularity ctb/11/22/2024 16:27 By this signature, I attest that the above diagnosis is based upon my personal examination of the slides(and/or other material indicated in the diagnosis). Report Electronically Reviewed and Signed Out By Aquiles Parkinson M.D. 11/22/2024 16:27:19 Material Received Received for review are five slides labeled [id number], accompanied by a corresponding pathology report. The material originates from [place], [place]. Selected slide(s) may be digitally scanned [...] the Department of Pathology and Immunology at [facility], [address] [place] [address], [place] [address] CLIA # [id number] The performance characteristics of the testing cited in this report (if any) were determined by the [facility] Department of Pathology and Immunology [facility], as part of an ongoing senior quality technician program and in compliance with federally mandated [...] and the performance characteristics determined by the [facility], [facility] Department of Pathology and Immunology. It has not been cleared or approved by the U.S. Food and Drug Administration. Any test designated as LDT was developed and its performance characteristics determined by [facility]. It has not been cleared or approved by the FDA. This test is used for clinical purposes and should not be regarded as investigational or for research. Report images and/or scanned reports, if included, only viewable in PDF version of report. Darrius Hines MD LAB CYTOLOGY ORDERABLES Final Result from Last 3 Months Insurance MEDICARE [facility] INSURANCE MEDICARE [facility] Address: [address] [address] [place] [address] Care Teams Aerographer Relationship Specialty Start Date End Date Aman Jerry MD PCP - General Internal Medicine 08/04/22
--- OUTSIDE RECORDS SUMMARY | 2024-12-10 00:52 | XMS_ITS | Data Portability ---
Author Organization [place] - [facility] [employer], Main Office Address [address] [place] [address] Assessment Encounter Date Assessment Date Assessment LastModified by Organization Details LastModified Time 11/17/2022 11/17/2022 Assessment: Rhinitis Moderate OSAHS, AHI = 20 PLMD Plan: The following were reviewed and explained to the patient: primary care/referral note [facility] split night sleep study 08/05/22 [...] carrier. Patient will setup an appointment with [facility] for supplies and pressure adjustments. A major [...] were reviewed and explained to the patient: [facility] split night sleep study 08/05/22 [...] carrier. Patient will setup an appointment with [facility] for supplies and pressure adjustments. A major [...] were reviewed and explained to the patient: [facility] split night sleep study 08/05/22 [...] carrier. Patient will setup an appointment with [facility] for supplies and pressure adjustments. A major [...] stable follow-up with me in 4 months [email or web address] Not available 03/18/2023 20:12:36 07/28/2023 07/28/2023 Will continue current therapy will follow-up in 4 months [email or web address] Not available 07/29/2023 13:43:16 Plan of Treatment Reminders Order Date Submit Date Provider Last Modified By Organization Details Last Modified Time Details Appointments None recorded. Lab vitamin B12, serum 2022 023 [email or web address] [employer] [facility], [address], [place], [address], 4 14:19:43 hemoglobin + hematocrit, blood 2022 023 [email or web address] 25 [employer] [facility], [address], [address], [place], [address], 4 14:19:43 vitamin B12, serum 2022 023 [employer] [facility], [address], [address], [place], [address], 3 05:39:36 hemoglobin + hematocrit, blood 2022 023 [employer] [facility], [address], [address], [place], [address], 3 05:39:34 iron + TIBC + ferritin, serum 2022 023 [employer] [facility], [address], [address], [place], [address], 3 11:59:55 folate, RBC 2022 023 [employer] [facility], [address], [address], [place], [address], 3 11:59:59 vitamin B12, serum 2022 023 [email or web address] [facility], [address], [address], [place], [address], 3 11:59:59 ESR (erythrocyt e sedimentati on rate), blood 2022 023 [email or web address] 25 [employer] [facility], [address], [address], [place], [address], 3 15:49:21 hemoglobin + hematocrit, blood 2022 023 [email or web address] [facility], [address], [address], [place], [address], 3 11:59:58 bun (blood urea nitrogen), serum or plasma 2022 023 [email or web address] [facility], [address], [address], [place], [address], 3 11:59:55 creatinine, serum or plasma 2022 023 [employer] [facility], [address], [address], [place], [address], 3 11:59:56 magnesium, serum or plasma 2022 023 [email or web address] [facility], [address], [address], [place], [address], 3 11:59:57 vitamin E, serum 2022 023 [email or web address] [facility], [address], [address], [place], [address], 3 12:00:00 Referral None recorded. Procedures None recorded. Surgeries None recorded. Imaging None recorded. Medication Orders montelukast 10 mg tablet 2022 023 [id number], [address] [place] [address], [id number], 3 11:17:08 cyanocobala min (vit B-12) 1,[address]cg tablet [address] [facility], [address], [place], [id number], 3 11:00:10 cyanocobala min (vit B-12) 1,000 mcg tablet [address] [facility]19, [address], [place], [id number], 3 10:05:28 Patient TargetsNo targets recorded. Patient InstructionsNo instructions recorded. Reason for Referral None Reported. Results Created Date Observation Date Name Description Value Unit Range Abnormal Flag Note LastModifiedBy Organization Detail LastModifiedTime 11/27/1912/02/2022 IRON, TIBC AND JERSON TIN PANEL iron, total 88 mcg/d L 50-180 normal Not Available [address], [address], 12/02/2022 11:59:55 11/27/19 23 12/02/2022 IRON, TIBC AND JERSON TIN PANEL iron binding capacity 333 mcg/d L_(ca lc) 250-42 5 normal Not Available [address], [address], 12/02/2022 11:59:55 11/27/19 23 12/02/2022 IRON, TIBC AND JERSON TIN PANEL % saturation 26 %_(ca lc) 20-48 normal Not Available [address], [address], 12/02/2022 11:59:55 11/27/19 23 12/02/2022 IRON, TIBC AND JERSON TIN PANEL ferritin 162 NG/mL 24-380 normal Not Available [address], [address], 12/02/2022 11:59:55 11/27/19 23 12/02/2022 UREA NITRO GEN (BUN) urea nitrogen (BUN) 24 mg/dL 7-25 normal Not Available [address], [address], 12/02/2022 11:59:55 11/27/19 23 12/02/2022 CREAT ININE creatinine 0.74 mg/dL 0.70-1 .35 normal Not Available [address], [address], 12/02/2022 11:59:56 11/27/19 23 12/02/2022 CREAT ININE eGFR 99 mL/mi n/1.7 3m2 > or = 60 normal The eGFR is based on the CKD-E PI 2020 equat ion. To calcu late the new eGFR from a previ ous Creat inmariana or Parker daniel, go to [email or web address] :[email or web address] [email or web address] s/ kdoqi /gfr% 5Fcal culat or Not Available [employer] [address], [address], 12/02/2022 11:59:56 11/27/19 23 12/02/2022 MAGNE SIUM magnesium 1.9 mg/dL 1.5-2. 5 normal Not Available [employer] [address], [address], 12/02/2022 11:59:57 11/27/19 23 12/02/2022 SED RATE BY MODIF IED WESTCristian GALINDOREN sed rate by modified westtoriren 29 mm/h < or = 20 high Not Available [address], [address], 12/02/2022 11:59:58 11/27/19 23 12/02/2022 HEMOG LOBIN + HEMAT OCRIT hemoglobin 12.4 g/dL 13.2-1 7.1 low Not Available [employer] [address], [address], 12/02/2022 11:59:58 11/27/19 23 12/02/2022 HEMOG LOBIN + HEMAT OCRIT hematocrit 37.5 % 38.5-5 0.0 low Not Available [employer] [address], [address], 12/02/2022 11:59:58 11/27/19 23 12/02/2022 FOLAT E, RBC folate, RBC 736 NG/mL _RBC >280 normal Not Available [employer] [address], [address], 12/02/2022 11:59:59 11/27/19 23 12/02/2022 VITAM IN [...] pg/mL will have sympt oms. Not Available [employer] [place] [address] [place], [address], 12/02/2022 11:59:59 11/27/19 23 12/02/2022 VITAM IN [...] resul ts. See Note 1 Not Available [employer] [facility] [address] [address], [place], [address], 12/02/2022 12:00:00 11/27/19 23 12/02/2022 VITAM IN E (TOCO PHERO L) [id number] ocopherol 2.5 mg/L <4.4 See Note 1 Note 1 This test was devel oped and its cheryl tical perfo rmanc e halima cteri stics have been deter mined by [employer] [facility]. It has not been clear ed or appro mariam by the FDA. This assay has been valid ated pursu ant to the CLIA regul ation s and is used for clini yasmeen purpo ses. Not Available [employer] [facility] [address] [place], [address], 12/02/2022 12:00:00 02/19/20 23 02/19/2023 HEMOG LOBIN + HEMAT OCRIT hemoglobin 13.1 g/dL 13.2-1 7.1 low Not Available [address] [place], [address], 02/19/2023 05:39:34 02/19/2002/19/2023 HEMOG LOBIN + HEMAT OCRIT hematocrit 39.6 % 38.5-5 0.0 normal Not Available [place] [address] [place], [address], 02/19/2023 05:39:34 02/19/2002/19/2023 VITAM IN B12 vitamin B12 501 pg/mL 200-11 00 normal Not Available [address], [address], 02/19/2023 05:39:36 03/27/20 24 03/26/2024 XR, humer us No observ ation record ed. [email or web address] [facility] [address], [place], [address], 05/10/2024 14:54:41 03/27/20 24 03/26/2024 US, upper extre mity No observ ation record ed. [email or web address] [facility] [address], [place], [address], 05/10/2024 14:55:44 Result Notes None recorded. Problems Name Problem SNOMED Code Status Onset Date Resolution Date Notes Provider Name and Address Organization Details Recorded Time Periodic limb movement disorder 042464478 Active 2022 Devante Ocasio MD [address], [place], [address] , [employer] 09:55:43 Obstructive sleep apnea syndrome 84812543 Active 2022 Devante Ocasio MD [address], [place], [address] , [place] [employer] 3 10:16:08 Cobalamin deficiency 964457901 Active 2022 Devante Ocasio MD [address] [facility], [facility] [address], [place], [address] , [facility] [employer] [facility] [employer] [facility] 3 09:53:11 Anxiety state 590938405 Active Not Available [facility] 3 03:03:03 Dyslipidemia 667859005 Active Not Available [facility] 3 03:03:04 Cervical arthritis 508178906 Active 2020 Not Available [facility] 3 03:03:04 Premature ejaculation 41257500 Active Not Available [facility] 3 03:03:04 Hyperglycemia 56398255 Active 2021 Not Available [facility] 3 03:03:04 COVID-19 889089636 Active 2022 Not Available [facility] 3 03:03:04 Gout 16837179 Active Not Available [facility] 3 03:03:05 Wheezing 30709556 Active 2022 Syl Suarez RN [facility], [place] [employer] [facility] [employer] [facility] 3 17:41:41 Notes:Medical History: Anxie ty [...] 6 Knee arthroscopy/s urgery completed Not Available [facility] 10/27/2022 02:55:59 6 repair of meniscus completed Not Available [facility] 10/27/2022 02:55:59 Imaging Results Imaging Date Name Status LastModified by Organiz ation Details LastModified Time 03/26/2024 XR, humerus completed [email or web address] [facility] [address] [facility] [address], [place], [address], 05/10/2024 14:54:41 03/26/2024 US, upper extremity completed [email or web address] [facility] [address], [place], [address], 05/10/2024 14:55:44 Procedure Notes None recorded. Medical [...] Updated DateTime 3 182.88 cm 46.7 kg/m2 502011. 78 g 98.4 [degF] 61 /min 96 % 96 % 140 mm[Hg] 82 mm[Hg] Libby Kolb MA MD [employer] [facility] [employer] 3 09:52:32 Date Recorded Heart rate Respiratory rate Provider N lesli and Address Organization Details Last Updated DateTime 11/17/2022 61 /min 15 /min Devante Ocasio MD [address], [address], [place], [address] [employer] [facility] [employer] 11/17/2022 10:08:18 Date Recorded Body height Body mass index (BMI) Body weight Body temperature Heart rate Oxygen saturation Oxygen saturation in Arterial blood by Pulse oximetry Systolic blood pressure Diastolic blood pressure Provider Name and Address Organization Details Last Updated DateTime 3 182.88 cm 47.5 kg/m2 189827. 33 g 98.1 [degF] 65 /min 97 % 97 % 140 mm[Hg] 82 mm[Hg] Libby Kolb MA MD [employer] [facility] [employer] 3 09:45:57 Date Recorded Heart rate Respiratory rate Provider N lesli and Address Organization Details Last Updated DateTime 12/14/2022 65 /min 14 /min Devante Ocasio MD [address], [address], [place], [address] [employer] [facility] [employer] [facility] 12/14/2022 10:12:58 Date Recorded Body height Body mass index (BMI) Body weight Body temperature Oxygen saturation Oxygen saturation in Arterial blood by Pulse oximetry Systolic blood pressure Diastolic blood pressure Provider Name and Address Organization Details Last Updated DateTime 3 182.88 cm 47.6 kg/m2 522584. 92 g 98.5 [degF] 97 % 97 % 136 mm[Hg] 84 mm[Hg] Libby Kolb MA [facility] [employer] [facility] 3 10:46:31 Date Recorded Heart rate Respiratory rate Heart rate Provider Name and Address Organization Details Last Updated DateTime 03/15/2023 63 /min 13 /min 63 /min Devante Ocasio MD [address] [facility], [facility] [address], [place], [address], [facility] [employer] [facility] 03/15/2023 11:02:47 Date Recorded Body height Body mass index (BMI) Body weight Body temperature Heart rate Oxygen saturation Oxygen saturation in Arterial blood by Pulse oximetry Systolic blood pressure Diastolic blood pressure Provider Name and Address Organization Details Last Updated DateTime 182.88 cm 47.7 kg/m2 103480. 51 g 97.8 [degF] 72 /min 98 % 98 % 128 mm[Hg] 80 mm[Hg] Isa Pelayo RN [facility] [employer] [facility] 3 10:09:17 Date Recorded Body height Body mass index (BMI) Body weight Body temperature Heart rate Systolic blood pressure Diastolic blood pressure Provider Name and Address Organization Details Last Updated DateTime 182.88 cm 46.7 kg/m2 673337. 78 g 97.8 [degF] 78 /min 128 mm[Hg] 82 mm[Hg] DAGO Bahena [facility] [employer] [facility] 3 10:31:19 Social History Question Answer Notes LastModified by Organization Details LastModified Time Tobacco Smoking Status Never Smoker DAGO Treadwell null, [facility] [employer] [facility] 03/17/2023 10:04:16 Do You Have An Advance Directive? Yes [id number] Information not available 10/27/2022 What Is Your Level Of Alcohol Consumption? Moderate Patient Reported About 7 Beers Per Week. [id number] Information not available 10/27/2022 Are You Blind Or Do You Have Difficulty Seeing? No Information not available 03/17/2023 What Is Your Level Of Caffeine Consumption? Occasional [id number] Information not available 10/27/2022 How Much Tobacco Do You Chew? None [id number] Information not available 10/27/2022 In The 14 [...] Of Diet Are You Following? REGULAR [id number] Information not available 10/27/2022 Which Illicit Or Recreational Drugs Have You Used? None Information not available 03/17/2023 Do You Or Have You Ever Used E-cigarettes Or Vape? Never Used Electronic Cigarettes Information not available 03/17/2023 What Is The Highest Grade Or Level Of School You Have Completed Or The Highest Degree You Have Received? [id number] Information not available 03/17/2023 Do You Have [...] Do You Have A Medical Power Of Human Resources Temp? Yes Information not available 03/17/2023 Do You Have Moisture Problems In Your Home? No Information not available 03/17/2023 What Was The Date Of Your Most Recent Tobacco Screening? 07/28/2023 Information not available 07/28/2023 Have You Ever Been Counseled For Unhealthy Alcohol Use? No Information not available 03/17/2023 Do You Have Any Pets? Yes Information not available 03/17/2023 What Is Your Relationship Status? [id number] Information not available 10/27/2022 Do You Use Your Seat Belt Or Car Seat Routinely? Yes Information not available 03/17/2023 Do You Have Smoke And Carbon Monoxide Detectors In Your Home? Yes Information not available 03/17/2023 Are You Passively Exposed To Smoke? No Information not available 03/17/2023 Do You Or Have You Ever Used Smokeless Tobacco? Never Used Smokeless Tobacco [id number] Information not available 10/27/2022 Are There Any Smokers In Your House? No Information not available 03/17/2023 How Much Tobacco Do You Smoke? No [id number].[id number] [id number] Information not available 10/27/2022 What Types Of Sporting Activities Do You Participate In? None Information not available 03/17/2023 Do You Feel Stressed (tense, Restless, Nervous, Or Anxious, Or Unable To Sleep At Night)? [id number] Information not available 03/17/2023 Do You Use [...] 03/17/2023 What is your exercise level? Occasional [id number] Information not available 10/27/2022 Mental Status Question Answer Note LastModified by Organization D etails LastModified Time Do you have difficulty concentrating, remembering or making decisions? No Information no t available 03/17/2023 Family History Relationship Description Onset Age of this Age Resolved Age Notes LastModified by Organization Details LastModified Time Father Diabetes mellitus 55 [id number] Not available 10/27/2022 02:56:03 Mother Chronic obstructive pulmonary disease 63 [email or web address] Not available 2022 10:04:12 Medical History Condition Response NERVE DISEASE N BLINDNESS N RHEUMATIC FEVER N KIDNEY STONES N BLADDER PROBLEMS N MRSA N OTHER # 1 N POLIO N LUNG DISEASE/DISORDER N COPD N RADIATION / CHEMOTHERAPY N Other # 2 N BLOOD DISEASES N SURGERY N EAR OR HEARING PROBLEMS N MUMPS N BOWEL PROBLEMS N DEPRESSION (INCLUDING POST ) N STROKE/TIA N ULCERS N BENIGN PROSTATIC HYPERPLASIA N MEASLES N MYOCARDIAL INFARCTION N OBESITY N GERD/NAUSEA N ANEURYSM N URINARY/BLADDER/KIDNEY PROBLEMS N CORONARY ARTERY DISEASE (CAD) N ADDICTION CONCERNS N ENDOMETRIOSIS N Impotence N USE OF BLOOD THINNERS N SKIN [...] APNEA N CHICKENPOX N INFECTIOUS DISEASE N HEART ARRHYTHMIA N PROSTATE N INSOMNIA N HIGH CHOLESTEROL / HYPERLIPIDEMIA Y HYPERTHYROIDISM N EYE PROBLEMS N NEUROLOGICAL PROBLEMS N EDEMA N CHRONIC PAIN SYNDROME N HYPOTHYROIDISM N CAROTID BLOCKAGE N CONSTIPATION N BACK / NECK PROBLEMS N HAVE YOU BEEN HOSPITALIZED OR SEEN IN [facility] IN THE PAST YEAR ? N ATHEROSCLEROSIS N BREAST PROBLEMS N DIALYSIS N ECZEMA N OSTEOPOROSIS N ARTHRITIS N APPENDICITIS N DIABETES, TYPE N BAD TEETH N ENT N HEARTBURN / REFLUX N AUTISM SPECTRUM DISORDER (ASD) N HEPATITIS / LIVER DISEASE N GOUT Y SLEEP DISORDER N ALZHEIMER'S DISEASE N Brain Problems N HERPES N DEMENTIA N HEADACHES/MIGRAINES N SEIZURES/EPILEPSY N VASCULAR DISEASE N PACEMAKER N Blood Disorder N DIZZINESS N HEART DISEASE/HEART PROBLEMS N KIDNEY DISEASE N MULTIPLE SCLEROSIS N CARDIAC ARRHYTHMIA N CANCER: SPECIFY N ATRIAL FIBRILLATION N Gall Stones N PULMONARY EMBOLISM N AUTOIMMUNE DISEASE N Immunizations Vaccine Type Date Status Note Provider Nam e and Address Organization Details Recorded Time Influenza, high-dose, quadrivalent, PF 1 completed Not Available [facility] 10/27/2022 03:13:13 COVID-19, mRNA, LNP-S, PF, 100 mcg/0.5mL dose or 50 mcg/0.25mL dose 1 completed Not Available [facility] 10/27/2022 03:13:14 COVID-19, mRNA, LNP-S, PF, 100 mcg/0.5mL dose or 50 mcg/0.25mL dose 1 completed Not Available [facility] 10/27/2022 03:13:14 COVID-19, mRNA, LNP-S, PF, 100 mcg/0.5mL dose or 50 mcg/0.25mL dose 1 completed Not Available [facility] 10/27/2022 03:13:14 zoster, unspecified formulation 1 completed Not Available [facility] 10/27/2022 03:13:14 zoster, unspecified formulation 0 completed Not Available [facility] 10/27/2022 03:13:14 Influenza, high-dose, quadrivalent, PF 0 completed Not Available [facility] 10/27/2022 03:13:14 Influenza, high-dose, quadrivalent, PF 2 completed Not Available [facility] 10/27/2022 03:13:14 Influenza, high-dose, trivalent, PF 9 completed Not Available [facility] 10/27/2022 03:13:14 Influenza, split virus, trivalent, preservative 4 completed Not Available [facility] 10/27/2022 03:13:14 Influenza, split virus, quadrivalent, PF 8 completed Not Available [facility] 10/27/2022 03:13:14 Past Encounters Encounter ID Performer Location Encounter Start Date Encounter Closed Date Diagnosis/Indication Diagnosis SNOMED-CT Code Diagnosis ICD10 Code Diagnosis Note [id number] [facility] [place] [address] [facility] y , [place] [address] 12/11/2020 00:00:00 12/11/2020 10:48:19 [id number] [facility] [place] [address] [place] [address] y , [place] [address] 03/05/2021 00:00:00 03/05/2021 22:48:25 [id number] [facility] [place] [address] [place] [address] y , [place] [address] 08/11/2021 00:00:00 08/11/2021 21:56:49 [id number] [facility] [place] [address] [place] [address] [place] [address] 10/13/2021 00:00:00 10/13/2021 21:52:52 [id number] [facility] [place] [address] [place] [address] [place] [address] 12/15/2021 00:00:00 12/16/2021 08:08:32 [id number] [facility] [address], [facility] [address] [place] [address] 06/24/2022 00:00:00 07/24/2022 10:35:02 [id number] [facility] [place] [address] [place] [address] [place] [address] 07/13/2022 00:00:00 07/13/2022 22:53:31 [id number] [facility] [place] [address] [place] [address] [place] [address] 08/10/2022 00:00:00 08/10/2022 13:50:35 [id number] Devante Ocasio MD [address] [address] 11/17/2022 09:33:53 11/18/2022 08:35:49 Periodic limb movement disorder 329746717 G47.61 D50.8 E83.42 Obstructiv e sleep apnea syndrome 60932800 G47.33 [id number] Devante Ocasio MD [address] [address] 12/14/2022 09:31:33 12/15/2022 08:25:21 Obstructive sleep apnea syndrome 70827743 G47.33 Cobalamin deficiency 190 499213 E53.8 D64.9 [id number] Devante Ocasio MD [address] [address] 03/15/2023 10:26:20 03/16/2023 08:46:33 Obstructive sleep apnea syndrome 05079471 G47.33 Cobalamin deficiency 190 462434 E53.8 D64.9 [id number] Aman Jerry MD [facility] [place] [address] [place] [address] [place] [address] 03/17/2023 10:02:28 03/17/2023 10:36:20 Renewal of prescription 538751596 Z76.0 Dyslipidemia 940987141 E 78.5 Gout 44222864 M10.9 Obstructiv e sleep apnea syndrome 62355101 G47.33 [id number] Aman Jerry MD [facility] [place] [facility] [place] [address] 07/28/2023 10:16:14 07/28/2023 11:26:02 Dyslipidemia 388293965 E78.5 Anxiety state 452801325 F41.1 Cervical arthritis 43155 1000 M46.92 Gout 48436128 M10.9 Health Concerns Section Related Observation LastModified by Organization Detai ls LastModified Time None Recorded Concern Status LastModified by Organization Details LastModified Time None Recorded Advance Directives Directive Y: Payers Encounter Date Sequence Insurance Name Policy Number Policy White Covered Member ID White Member ID Guarantor Name 11/17/2022 1 [place] Bebeto Rasheed [id number] Bebeto Rasheed 11/17/2022 2 [employer] (MEDICARE SUPPLEMENT) Bebeto Rasheed [id number] Bebeto Rasheed 12/14/2022 1 [place] Bebeto Rasheed [id number] Bebeto Rasheed 12/14/2022 2 [employer] (MEDICARE SUPPLEMENT) Bebeto Rasheed [id number] Bebeto Rasheed 03/15/2023 1 [place] Bebeto Rasheed [id number] Bebeto Rasheed 03/15/2023 2 [employer] (MEDICARE SUPPLEMENT) Bebeto Rasheed [id number] Bebeto Rasheed 03/17/2023 1 [place] Bebeto Rasheed [id number] Bebeto Rasheed 03/17/2023 2 [employer] (MEDICARE SUPPLEMENT) Bebeto Rasheed [id number] Bebeto Rasheed 07/28/2023 1 [place] Bebeto Rasheed [id number] Bebeto Rasheed 07/28/2023 2 [employer] (MEDICARE SUPPLEMENT) Bebeto Rasheed [id number] Bebeto Rasheed Notes Date Note Type Note Provider Name and Address Organization Details Recorded Time 11/17/2022 text/html Primary care/Ref erring provider: Aman Jerry MD [facility] split night sleep study 08/05/22 [...] moderate chance of dozing. Devante Ocasio MD [address] [place] [address], [place], [address], [place] - [facility] [employer] 11/17/2022 10:25:25 12/14/2022 text/html Primary care/Ref erring provider: Aman Jerry MD During the [facility] split night sleep study on [...] dreams: yes, act like working in the [employer] with sleep onset: noDifficulty with sleep maintenance: [...] moderate chance of dozing. Devante Ocasio MD [address] [place] [address], [phone], [facility] 12/14/2022 10:13:39 03/15/2023 text/html Primary care/Ref erring provider: Aman Jerry MD During the [facility] split night sleep study on [...] dreams: yes, act like working in the [employer] with sleep onset: noDifficulty with sleep maintenance: [...] Ocasio MD [address], [place], [address], [place] [facility] [employer] 03/15/2023 11:02:53 03/17/2023 text/html 1. Gout no flare -ups. 2. Rhinitis about the same. 3. Dyspnea better. 4. Hyperlipidemia trying to follow diet. 5. Hyperlipidemia tries to watch diet 6. Obesity not successful who weight 7. Sleep apnea CPAP now bloating a lot Aman Jerry MD [address], [place], [address], [place] [facility] [employer] 03/18/2023 20:13:12 07/28/2023 text/html Dyslipidemia tra michelle follow low-fat diet anxiety has been stable his arthritis is neck doing fine sleep apnea okay gout no red hot swollen joints needs to lose a little weight actually feels good Aman Jerry MD [address], [place], [address], [place] [facility] [employer] 07/29/2023 13:43:32
[2024-12-10] MEDS: KETOROLAC 15 MG/ML VIAL (*BKC) IV PUSH (08:45)
[2024-12-10] MEDS: LACTATED RINGERS 1,000 ML 30 ML IV CONT (08:45)
[2024-12-10] MEDS: ACETAMINOPHEN 500 MG TABLET 1000 MG PO (08:45)
--- NOTE | 2024-12-10 08:57 | WPDANESEPPF ---
Anes - Initial Pre Proc Eval Procedure: Operation Date: 12/10/24 10:30 Proposed Procedures p Left Knee Arthroscopy, Partial Medial Meniscectomy, Proceed As Indicated - Phan Kingsley MD Date/Time: 12/10/24 08:57 Surgeon: Phan Kingsley MD Pre Op Diagnosis: Lt Knee Medial Meniscal Tear Patient Data Age: 69 Gender: M Height: 1.8 m Weight: 154 kg Allergies Allergy/AdvReac Type Severity Reaction Status Date / Time No Known Allergies Allergy Verified 12/05/24 12:22 Home Medications ?Medication ?Instructions ?Recorded ?Confirmed ?Type allopurinol 300 mg tablet 300 mg PO HS 04/15/22 12/05/24 History montelukast 10 mg tablet 10 mg PO HS 04/15/22 12/05/24 History simvastatin 20 mg tablet 20 mg PO HS 04/15/22 12/05/24 History aspirin 81 mg tablet,delayed 81 mg PO HS 03/23/24 12/05/24 History release (Adult Aspirin Regimen) losartan 100 1 tablet PO DAILY 08/05/24 12/05/24 History mg-hydrochlorothiazide 25 mg tablet sertraline 50 mg tablet 50 mg PO DAILY 11/01/24 12/05/24 History Constantino Red 4 in 1 1,000 unit PO DAILY 11/15/24 12/05/24 History Mid Nite Sleep Gummies 1 unit PO HS PRN sleep 11/15/24 12/05/24 History albuterol sulfate 90 mcg/actuation 1 puff inhalation Q4H PRN 11/15/24 12/05/24 History aerosol inhaler (Ventolin HFA) bronchospasm fluticasone propionate 50 1 spray intranasal DAILY 11/15/24 12/05/24 History mcg/actuation nasal spray,suspension (Allergy Relief (fluticasone)) multivitamin with minerals-folic 1 tablet PO DAILY 11/15/24 12/05/24 History acid 400 mcg-lycopene 370 mcg tablet (One-A-Day Men's 50 Plus) acetaminophen 500 mg tablet 1,000 mg PO Q6H pain 12/05/24 12/05/24 History (Acetaminophen Extra Strength) Patient hx anesthesia problems: none Family hx anesthesia problems: none Results Review: All pre-operative results and documents have been reviewed as part of the pre-operative evaluation. [facility] Past Medical History Medical History HTN (hypertension) Morbid obesity with BMI of 45.0-49.9, adult Gout Hyperlipidemia GERD (gastroesophageal reflux disease) Surgical History Surgical History History of local excision of skin lesion fatty tumor from forehead H/O knee surgery H/O toe surgery bone spur removal Family History Family History Father Diabetes mellitus Mother Cerebrovascular accident Social History Social History Smoking status: Never smoker Alcohol intake: current Drinks per week: 14 Alcohol use details: 2 a day Substance use: never Substance use type: does not use Current Housing: Decline to Answer Concerned About Future Housing: Decline to Answer Difficulty Paying Gas/Electric Bills: Decline to Answer Difficulty Paying for Meds: Decline to Answer Currently Unemployed: Decline to Answer Education: Decline to Answer Difficulty w/ Childcare or Family Care: Decline to Answer Living arrangements: with family Additional living arrangements comments: Occupation/Education: occupation Additional occupation/education comments: farming Spiritual care concerns: No Anes - Eval Final PreProcedure Day of Procedure 12/10/24 08:57 Patient weight: morbidly obese Heart: regular rate and rhythm Lungs: clear to auscultation Airway: Mallampati scale class II Neurological: alert and oriented Last oral intake: >/= 8 hours ASA classification: III Emergent: no Anesthetic plan: proceed Anesthesia type and monitoring: general LMA and standard monitoring Results Review: All pre-operative results and documents have been reviewed as part of the pre-operative evaluation. Informed Consent: The patient's anesthetic plan and its attendant risks and benefits were discussed with the patient/family/POA. Questions were solicited and answers provided to the satisfaction of the patient/family/POA.
--- NOTE | 2024-12-10 09:08 | WPDHPUPDATE1 ---
History and Physical Update Update Date/Time: 12/10/24 09:08 History and Physical has been reviewed, including an updated exam of the patient. There are NO changes in the patient's condition. Risks, benefits, and alternatives have been discussed and questions answered. Patient agrees to proceed with procedure.
[2024-12-10] MEDS: ceFAZolin 3 GM/D5W 100 ML 100 ML IVPB (09:20)
[2024-12-10] MEDS: LIDO 1%/EPINEPHRINE 1:100,000 50 ML VIAL 20 ML INFILTRATE (09:32)
--- NOTE | 2024-12-10 09:52 | W.PM.PROC2 ---
Procedure Note - Detailed Date of Procedure 12/10/24 Pre-op Diagnosis LEFT Knee Medial Meniscal Tear Post-op Diagnosis Same Procedure Performed LEFT knee arthroscopy with partial meniscectomy Surgeon Phan Kingsley MD Anesthesia General Indications Pain, Locking and Catching Description of Procedure Patient brought to operating room # 7. An anesthetic was administered. The knee was sterilely prepped and draped in the usual manner. Standard portals were used. Superior medial portal was used for the outflow cannula, inferior lateral portal was used for the scope, inferior medial portal was used for the instruments. Arthroscopy was performed, the patellar femoral joint degenerative changes. The medial compartment showed a complex tear. The lateral compartment showed fraying. The ACL was intact. Using baskets and wu the meniscal tear was trimmed back to a stable base so the nothing further could be pulled into the joint. Any loose or delaminated fragments were gently trimmed to a stable base. At this point the instruments were withdrawn, sutures placed and patient left the operating room in satisfactory condition. Estimated Blood Loss 20 Drains No Packing No Pathology None sent Complications No immediate complications Condition Stable Disposition PACU [facility] Billing Surgery - Charge Forward: Surgery Billing ([id number] Scope, Partial)
== END 2024-12-10 11:48 | disposition home or self-care (01) ==
PROVIDERS: PCP Internal Medicine; Visit Provider Orthopaedic Surgery
PROC: (CPT 29870; principal; 2024-12-10 10:30)
DX: S83.232A Complex tear of medial meniscus, current injury, left knee, initial encounter (principal); M25.462 Effusion, left knee; I10 Essential (primary) hypertension; E78.5 Hyperlipidemia, unspecified; K21.9 Gastro-esophageal reflux disease without esophagitis; X58.XXXA Exposure to other specified factors, initial encounter; E66.01 Morbid (severe) obesity due to excess calories; Z68.42 Body mass index [BMI] 45.0-49.9, adult; Z79.82 Long term (current) use of aspirin; Z79.51 Long term (current) use of inhaled steroids; Z98.890 Other specified postprocedural states; Z82.49 Family history of ischemic heart disease and other diseases of the circulatory system
CPT/HCPCS: 29881; A9270; J0690; J1100; J1885; J2004; J2405; J2704; J3010; J7120